=== PATIENT | female | born 1965 | race Caucasian/White ===

== ENCOUNTER 2018-11-11 20:02 | Emergency (ER) | payer BC, OTHER ==
--- OUTSIDE RECORDS SUMMARY | 2018-11-11 20:14 | XMS REPORT | Continuity of Care Document ---
:1965 Author Organization Interface Problems Problem Status Onset Classification Date Comments Source Date Reported F/U Active [address] 3 MONTH F/U Active [address] HOSPITAL FOLLOW Active [address] 1MO FOLLOW UP Active [address] WEAKNESS, Active [place] HYPONATREMIA, [address] RENAL FAILURE, A PULM EDEMA/HTN Active [place] [address] Diabetes Active Problem 11/06/2018 Medical Group,[facility] Diabetes Active Problem 11/06/2018 Medical mellitus Group,[facility] Diastolic CHF Active Problem 11/06/2018 Medical Group,[facility] ESRD on Active Problem 11/06/2018 Medical dialysis Group,[facility] 11/06/2018 Medical disease Group,[facility] HTN (<span Active Problem 11/06/2018 Medical ID="[id number] Group, 7">Confirmed</s [place]>) [facility] HTN (<span Active Problem 11/06/2018 Medical ID="[id number] Group, 7">Confirmed</s [place]>) [facility] Hypothyroid Active Problem 11/06/2018 Medical Group,[facility] Morbid obesity [facility] Pleural Active Problem 11/06/2018 Medical effusion Group,[facility] Vitamin D Active Problem 11/06/2018 Medical deficiency Group,[facility] Back pain Active Problem 11/06/2018 [facility] Medications Medication Details Route Status Patient Ordering Order Source Instructions Provider Date sevelamer carbonate See Active 800 MG Oral Tablet Instructions, 2018 Medical [Renvela] 3 tabs PO with Group meals and 2 tabs with snacks, # 390 tab, 5 Refill(s), called to pharmacy NIFEdipine 30 mg 30 mg=1 tab, Active [place] oral tablet, PO, Daily, # 2018 Medical extended release 90 tab, 0 Center Refill(s), Pharmacy: [facility]/pharmacy #[id number] Vitamin B12 0 Refill(s) Active [place] [facility] labetalol 200 mg 200 mg=1 tab, Active [place] oral tablet PO, TID, # 180 2018 Medical tab, 0 Center Refill(s) 168 HR Clonidine 1 patch, TOP, Active [place] 0.0125 MG/HR qWeek, # 12 2018 Medical Transdermal Patch patch, 0 Center Refill(s) sevelamer carbonate 800 mg=1 tab, Active [place] 800 MG Oral Tablet PO, TID-Meals, 2018 Medical [Renvela] # 90 tab, 0 Center Refill(s) Furosemide 40 MG 40 mg=1 tab, Active [place] Oral Tablet PO, BID, 0 [place] Refill(s) isosorbide dinitrate 30 mg=1 tab, Active [place] 30 mg oral tablet PO, TID, # 90 [place] tab, 0 Refill(s), other meclizine 12.5 mg 12.5 mg=1 tab, Active [place] oral tablet PO, Q8H, PRN [place] as needed for dizziness, 0 Refill(s) GI cocktail 30 mL, PO, Active [place] TID-Before [place] Meals, PRN Other -See Comment | painful swallowing, 0 Refill(s) Meclizine 12.5 mg, 1 Inactive [place] tab, Route: [place] PO, Drug form: TAB, Q8H, Dosing Weight 121.364, kg, PRN as needed for dizziness, Start date: 12/03/16 12:24:00 CDT, Duration: 30 day, Stop date: 01/02/17 12:23:00 CDTNotes: (Same as: Antivert) Protonix 40 mg, 1 tab, No Longer Sugar Route: PO, Active 2016 Drug form: ECTAB, Before Dinner, Start date: 12/02/16 16:30:00 CDT, Duration: 30 day, Stop date: 12/31/16 16:30:00 CDTNotes: Tablet should not be chewed or crushed. (Same as: Protonix) Sodium Chloride 250 mL, Rate: No Longer [place] 0.154 MEQ/ML Titrate, Active [place] Injectable Solution Dosing Weight 121.364, kg, Route: IV, Total Volume: 250, Start Date: 12/02/16 1:12:00 CDT, Duration: 30 day, Stop date: 01/01/17 1:11:00 CDT, Replace Every: 24 hr Sodium Chloride 2,000 mL, 400 No Longer Sugar 0.154 MEQ/ML ml/hr, Infuse Active [place] Injectable Solution Over: 5 hr, Route: IV, 2,000, Drug form: INJ, PRN, Dosing Weight 121.364 kg, Start date: 12/01/16 23:10:00 CDT, Duration: 24 hr, Stop date: 12/02/16 23:09:00 CDT, For Use by Dialysis nurse ONLY, PRN Dialysis Isosorbide Dinitrate 30 mg, 1 tab, No Longer Sugar Route: PO, Active 2016 [facility] Drug form: TAB, TID, Dosing Weight 121.364, kg, Start date: 12/01/16 17:00:00 CDT, Duration: 30 day, Stop date: 12/31/16 13:00:00 CDTNotes: Same as: Isordil Take on empty stomach/ full glass of water Furosemide 40 MG 40 mg, 1 tab, No Longer Sugar Oral Tablet Route: PO, Active 2016 [facility] Drug form: TAB, BID, Dosing Weight 121.364, kg, Start date: 12/01/16 17:00:00 CDT, Duration: 30 day, Stop date: 12/31/16 9:00:00 CDTNotes: (Same as: Lasix) May cause GI upset. Give with food or milk. Hydralazine 10 mg, 1 tab, Inactive Sugar Route: PO, 2016 [facility] Drug form: TAB, Q6H, Dosing Weight 121.364, kg, Start date: 12/01/16 6:00:00 CDT, Duration: 30 day, Stop date: 12/31/16 0:00:00 CDTNotes: (Same as: Apresoline) May interfere w/enteral feedings. Take With Food Hydralazine 10 mg, 0.5 mL, No Longer // [facility] Sugar Route: IVP, Active [place] Drug form: INJ, Q6H, Dosing Weight 121.364, kg, PRN Hypertension, Start date: 12/01/16 5:39:00 CDT, Duration: 30 day, Stop date: 12/31/16 5:38:00 CDTNotes: (Same as: Apresoline) Push over 5 minutes Sodium Chloride 2,000 mL, 400 No Longer 05/ MH Sugar 0.154 MEQ/ML ml/hr, Infuse Active [place] Injectable Solution Over: 5 hr, Route: IV, 2,000, Drug form: INJ, PRN, Dosing Weight 121.364 kg, Start date: 11/30/16 22:43:00 CDT, Duration: 24 hr, Stop date: 12/01/16 22:42:00 CDT, For Use by Dialysis nurse ONLY, PRN Dialysis Sodium Chloride 2,000 mL, 500 No Longer 12/01/ MH Sugar 0.154 MEQ/ML ml/hr, Infuse Active [place] Injectable Solution Over: 4 hr, Route: IV, 2,000, Drug form: INJ, PRN, Dosing Weight 121.364 kg, Start date: 11/30/16 22:35:00 CDT, Duration: 24 hr, Stop date: 12/01/16 22:34:00 CDT, For Use by Dialysis nurse ONLY, PRN Dialysis Sodium Chloride 500 mL, 500 Inactive 12/01/ MH Sugar 0.154 MEQ/ML ml/hr, Infuse [place] Injectable Solution Over: 1 hr, Route: IV, 500, Drug form: INJ, PRN, Dosing Weight 121.364 kg, Start date: 11/30/16 22:17:00 CDT, Duration: 1 doses or times, Stop date: Limited # of times, PRN Dialysis heparin 1,000 unit, 1 No Longer 05/23/ MH Sugar mL, Route: IV Active [place] Lock, Drug form: INJ, PRN, Dosing Weight 121.364, kg, PRN Dialysis, Start date: 11/30/16 22:17:00 CDT, Duration: 30 day, Stop date: 12/30/16 22:16:00 CDT Protonix 40 mg, Route: No Longer [place] IVP, Drug Active [place] form: INJ, Before Dinner, Dosing Weight 121.364, kg, Priority: NOW, Start date: 11/30/16 15:38:00 CDT, Duration: 30 day, Stop date: 12/29/16 16:30:00 CDTNotes: For IV push reconstitute with 10 ml 0.9% sodium chloride and push over 2 minutes. (Same as: Protonix) GI cocktail 30 ml, Route: No Longer Sugar PO, Drug Form: Active [place] SUSP, Dosing Weight 121.364, kg, TID-Before Meals, PRN Other -See Comment, Routine, Start date: 11/30/16 15:12:00 CDT, Duration: 30 day, Stop date: 12/30/16 15:11:00 CDT, painful swallowingNote s: G.I. Cocktail=antac id with simethicone 22.5 mL - lidocaine viscous 7.5 mL Labetalol 400 mg, 4 tab, Inactive Sugar Route: PO, 2016 [facility] Drug form: TAB, ONCE, Dosing Weight 121.364, kg, Priority: NOW, Start date: 11/30/16 11:51:00 CDT, Stop date: 11/30/16 11:51:00 CDTNotes: With food. (Same as:Trandate, Normodyne) Sodium Chloride 1000 2 gm, 2 tab, Active Sugar MG Oral Tablet Route: PO, 2016 [facility] Drug form: TAB, Daily, Dosing Weight 121.364, kg, Start date: 11/29/16 16:00:00 CDT, Stop date: 12/01/16 8:59:00 CDT Furosemide 40 MG 120 mg, 3 tab, No Longer Sugar Oral Tablet Route: PO, Active 2016 [facility] Drug form: TAB, TID, Dosing Weight 121.364, kg, Start date: 11/29/16 13:00:00 CDT, Duration: 30 day, Stop date: 12/29/16 9:00:00 CDTNotes: (Same as: Lasix) May cause GI upset. Give with food or milk. magnesium citrate 300 ml, Route: Inactive Sugar 58.2 MG/ML Oral PO, Drug Form: [place] Solution LIQ, Dosing Weight 121.364, kg, ONCE, NOW, Start date: 11/29/16 2:37:00 CDT, Stop date: 11/29/16 2:37:00 CDTNotes: (Same as: Citrate of Magnesia) Concentration: 1.745 gm / 30 mL Albuterol 0.833 3 mL, Route: No Longer Sugar MG/ML / Ipratropium INHALATION, Active [place] 0.167 MG/ML Drug Form: Inhalant Solution SOLN, Dosing Weight 121.364, kg, [id number], Start date: 11/28/16 19:00:00 CDT, Duration: 30 day, Stop date: 12/28/16 15:00:00 CDTNotes: (Same as: Duoneb) Sodium Chloride 3% 3 mL, Route: No Longer Sugar inhalation solution NEB, Drug Active [place] Form: MISC, Dosing Weight 121.364, kg, QH1Q-DP, Start date: 11/28/16 19:00:00 CDT, Duration: 30 day, Stop date: 12/28/16 15:00:00 CDT Acetylcysteine 200 600 mg, 3 mL, No Longer Sugar MG/ML Inhalant Route: Active [place] Solution INHALATION, Drug Form: SOLN, Dosing Weight 121.364, kg, Q4H-WA, Start date: 11/28/16 18:00:00 CDT, Duration: 30 day, Stop date: 12/28/16 14:00:00 CDT Budesonide 0.25 0.5 mg, 2 mL, No Longer Sugar MG/ML Inhalant Route: NEB, Active [place] Solution [Pulmicort] Drug form: SUSP, BID, Dosing Weight 121.364, kg, Start date: 11/28/16 17:00:00 CDT, Duration: 30 day, Stop date: 12/28/16 9:00:00 CDTNotes: (Same As: Pulmicort) Furosemide 100 mg, 10 mL, No Longer Sugar Route: IVP, Active [place] Drug form: INJ, TID, Dosing Weight 121.364, kg, Start date: 11/28/16 15:00:00 CDT, Duration: 1 day, Stop date: 11/29/16 10:00:00 CDTNotes: (Same as: Lasix) MEDICATION WASTE Product Size: 100 mg Product Wasted: ___ mg albumin human 25% 12.5 gm, 50 No Longer Sugar intravenous solution mL, Route: Active 2016 [facility] IVPB, Drug form: INJ, TID, Dosing Weight 121.364, kg, Start date: 11/28/16 14:30:00 CDT, Duration: 1 day, Stop date: 11/29/16 9:30:00 CDTNotes: LOT#: Mfg: WASTE: F/P - Red; E -Red (Same as: Albuminar) "blood product derivative" Tessalon Perles 200 mg, 2 cap, No Longer Sugar Route: PO, Active 2016 [facility] Drug form: CAP, TID, Dosing Weight 121.364, kg, Priority: NOW, Start date: 11/28/16 9:18:00 CDT, Duration: 30 day, Stop date: 12/28/16 6:00:00 CDTNotes: (Same As: Tessalon Perles) "Do Not Crush" Prednisone 40 mg, 2 tab, No Longer Sugar Route: PO, Active 2016 [facility] Drug form: TAB, Daily, Dosing Weight 121.364, kg, Start date: 11/28/16 9:00:00 CDT, Duration: 30 day, Stop date: 12/27/16 9:00:00 CDTNotes: Take with food. Protonix 40 mg, 1 tab, Inactive Sugar Route: PO, 2016 [facility] Drug form: ECTAB, Daily, Dosing Weight 121.364, kg, Start date: 11/28/16 9:00:00 CDT, Duration: 30 day, Stop date: 12/27/16 9:00:00 CDTNotes: Tablet should not be chewed or crushed. (Same as: Protonix) heparin sodium, 5,000 unit, 1 No Longer Sugar porcine 2500 UNT/ML mL, Route: Active 2016 [facility] Injectable Solution SUB-Q, Drug form: INJ, Q8H, Dosing Weight 121.364, kg, Start date: 11/28/16 8:00:00 CDT, Duration: 30 day, Stop date: 12/28/16 0:00:00 CDTNotes: porcine heparin Lasix 20 mg, 2 mL, Inactive Sugar Route: IV, 2016 [facility] Drug form: INJ, ONCE, Dosing Weight 121.364, kg, Start date: 11/28/16 7:07:00 CDT, Stop date: 11/28/16 7:07:00 CDTNotes: (Same as: Lasix) Sodium Chloride 100 mL, Rate: Inactive Sugar 0.154 MEQ/ML 10 ml/hr, 2016 [facility] Injectable Solution Infuse over: 10 hr, Route: IVPB, Dosing Weight 121.364 kg, Total Volume: 100, Infuse at 8 mg / hr for 72 hours for GI bleeding, Start date: 11/28/16 5:55:00 CDT, Duration: 72 hr, Stop date: 12/01/16 5:54:00 CDTNotes: do not load in pyxis Lasix 120 mg, 3 tab, No Longer Sugar Route: PO, Active 2016 [facility] Drug form: TAB, TID, Start date: 11/27/16 21:02:00 CDT, Duration: 30 day, Stop date: 12/27/16 17:00:00 CDTNotes: (Same as: Lasix) May cause GI upset. Give with food or milk. Furosemide 40 MG 120 mg, 3 tab, Inactive Sugar Oral Tablet [Lasix] Route: PO, 2016 [facility] Drug form: TAB, TID, Dosing Weight 121.364, kg, Start date: 11/27/16 17:00:00 CDT, Duration: 30 day, Stop date: 12/27/16 13:00:00 CDTNotes: (Same as: Lasix) May cause GI upset. Give with food or milk. tramadol 50 mg, 1 tab, No Longer Sugar hydrochloride 50 MG Route: PO, Active 2016 [facility] Oral Tablet Drug form: TAB, Q6H, Dosing Weight 121.364, kg, PRN Pain Score 4-6, Start date: 11/27/16 11:23:00 CDT, Duration: 30 day, Stop date: 12/27/16 11:22:00 CDTNotes: Not to exceed 400mg/day. (Same As: Ultram) zolpidem 5 mg, 1 tab, No Longer Sugar Route: PO, Active 2016 [facility] Drug form: TAB, Bedtime, Dosing Weight 121.364, kg, PRN Sleep, Start date: 11/27/16 11:23:00 CDT, Duration: 30 day, Stop date: 12/27/16 11:22:00 CDTNotes: (Same As: Emmanuelien) Nystatin 100 UNT/MG 1 appl, Route: No Longer Sugar Topical Powder TOP, Daily, Active 2016 [facility] Drug form: PWDR, PRN Rash, Start date: 11/27/16 11:22:00 CDT, Duration: 30 day, Stop date: 12/27/16 11:21:00 CDTNotes: (Same as:Mycostatin, Nilstat) For external use only. Metolazone 5 MG Oral 5 mg, 1 tab, No Longer Sugar Tablet Route: PO, Active 2016 [facility] Drug form: TAB, Daily, Dosing Weight 121.364, kg, Start date: 11/27/16 9:00:00 CDT, Duration: 30 day, Stop date: 12/26/16 9:00:00 CDTNotes: (Same as: Zaroxolyn) Albuterol 0.833 3 ml, Active Sugar MG/ML / Ipratropium INHALATION, [place] 0.167 MG/ML PRN, PRN Inhalant Solution Wheezing, # [DuoNeb] 360 ea, 0 Refill(s) Acetaminophen 325 MG 1 tab, PO, Active Sugar / Hydrocodone Q6H, PRN for [place] Bitartrate 10 MG pain, # 24 Oral Tablet [[place] tab, 0 10/325] Refill(s) Nystatin 100 UNT/MG 1 appl, TOP, Active Sugar Topical Powder Daily, PRN [place] PRN, # 30 gm, 0 Refill(s) Acetylcysteine 200 400 mg=2 ML, Active Sugar MG/ML Inhalant INHALATION, [place] Solution Q6H, 0 Refill(s) acetaminophen 325 mg 650 mg=2 tab, Active [place] oral tablet PO, Q4H, PRN [place] for pain, # 24 tab, 0 Refill(s) pantoprazole 40 MG 40 mg=1 tab, Active Sugar Enteric Coated PO, Daily, # 2017 [place] Tablet [Protonix] 30 tab, 3 Refill(s) Aluminum Hydroxide UNKNOWN, PO, Active Sugar 40 MG/ML / Magnesium QID, PRN [place] Hydroxide 40 MG/ML / Heartburn, 0 Simethicone 4 MG/ML Refill(s) Oral Suspension [Mylanta] Metolazone 10 MG 10 mg=1 tab, Active Sugar Oral Tablet PO, Daily, # [place] 30 tab, 0 Refill(s) Insulin, Aspart, SLIDING SCALE, Active Sugar Human SUB-Q, 2017 [place] TID-Before Meals, 0 Refill(s) Insulin, Aspart, 2 unit, 0.02 No Longer Sugar Human mL, Route: Active [place] SUB-Q, Drug form: SOLN, Bedtime, Dosing Weight 121.364, kg, PRN Blood Glucose Results, Start date: 11/26/16 22:38:00 CDT, Duration: 30 day, Stop date: 12/26/16 22:37:00 CDTNotes: Roll in palms of hands gently; Do not shake vigorously. (Same as: NovoLOG) "single patient use only" WASTE: F/P - Black; E - [employer]EG[employer]STEM[employer] Trash Bin Stable for 28 days at room temperature. Expires in days from Date Dextrose 50% Syringe 12.5 gm, 25 No Longer Sugar mL, Route: Active [place] IVP, Drug Form: INJ, Dosing Weight 121.364, kg, PRN, PRN Blood Glucose Results, Start date: 11/26/16 22:38:00 CDT, Stop date: 12/26/16 22:37:00 CDT Glucagon 1 mg, Route: No Longer Sugar IM, Drug form: Active 2016 [place] PDR/INJ, PRN, Dosing Weight 121.364, kg, PRN Blood Glucose Results, Start date: 11/26/16 22:38:00 CDT, Duration: 30 day, Stop date: 12/26/16 22:37:00 CDT Albuterol 0.833 3 mL, Route: No Longer Sugar MG/ML / Ipratropium NEB, Drug Active 2016 [place] 0.167 MG/ML Form: SOLN, Inhalant Solution Dosing Weight [DuoNeb] 121.364, kg, RQ4H, PRN Shortness of breath, Start date: 11/26/16 21:10:00 CDT, Stop date: 12/26/16 21:09:00 CDTNotes: (Same as: Duoneb) allopurinol 100 mg 200 mg=2 tab, No Longer Sugar oral tablet PO, Daily, # Active [place] 90 tab, 1 Refill(s) Atenolol 25 MG Oral 25 mg=1 tab, No Longer Sugar Tablet PO, Daily, # Active [place] 90 tab, 0 Refill(s) bumetanide 2 mg oral 2 mg=1 tab, No Longer Sugar tablet PO, Daily, # Active [place] 30 tab, 0 Refill(s) Aldactone 25 mg, 1 tab, No Longer Sugar Route: PO, Active [place] Drug form: TAB, BID, Dosing Weight 121.364, kg, Start date: 11/26/16 17:00:00 CDT, Duration: 30 day, Stop date: 12/26/16 9:00:00 CDTNotes: (Same As: Aldactone) Levofloxacin 750 MG 750 mg=1 tab, No Longer Sugar Oral Tablet PO, Daily, X 5 Active [place] [Levaquin] day, # 5 tab, 0 Refill(s), given to patient Bumex 2 mg, 2 tab, No Longer Sugar Route: PO, Active [place] Drug form: TAB, TID, Dosing Weight 121.364, kg, Start date: 11/26/16 13:00:00 CDT, Duration: 30 day, Stop date: 12/26/16 9:00:00 CDTNotes: (Same As: Bumex) Docusate 100 mg, 1 cap, No Longer Sugar Route: PO, Active 2016 [facility] Drug form: CAP, BID, Dosing Weight 135, kg, Start date: 11/26/16 9:00:00 CDT, Duration: 30 day, Stop date: 12/25/16 17:00:00 CDTNotes: (Same as: Colace) (Do Not Crush) Trazodone 50 mg, 1 tab, Inactive Sugar Hydrochloride 50 MG Route: PO, 2016 [facility] Oral Tablet Drug form: TAB, ONCE, Dosing Weight 121.364, kg, Start date: 11/26/16 6:38:00 CDT, Stop date: 11/26/16 6:38:00 CDTNotes: (Same As: Desyrel) Thyroxine 200 microgram, No Longer Sugar 2 tab, Route: Active 2016 [facility] PO, Drug form: TAB, Q630AM, Dosing Weight 135, kg, Start date: 11/26/16 6:30:00 CDT, Duration: 30 day, Stop date: 12/25/16 6:30:00 CDTNotes: Take 1 hour before or 2 hours after meal; Enteral feeds may interefere with the absorption of this medication. (Same as:Levothroid, Synthroid) Ondansetron 4 mg, 2 mL, No Longer Sugar Route: IVP, Active 2016 [facility] Drug form: INJ, Q6H, Dosing Weight 135, kg, PRN Nausea & Vomiting, Start date: 11/26/16 5:39:00 CDT, Duration: 30 day, Stop date: 12/26/16 5:38:00 CDTNotes: (Same as: Zofran) MEDICATION WASTE Product Size: 4 mg Product Wasted: ___ mg Morphine 2 mg, 1 mL, No Longer Sugar Route: IVP, Active 2016 [facility] Drug form: INJ, Q4H, Dosing Weight 135, kg, PRN Pain Score 7-10, Start date: 11/26/16 5:39:00 CDT, Duration: 30 day, Stop date: 12/26/16 5:38:00 CDTNotes: (Same as:MORPhine Sulfate) Acetaminophen 650 mg, 2 tab, No Longer Sugar Route: PO, Active 2016 [facility] Drug form: TAB, Q4H, Dosing Weight 135, kg, PRN Pain 1-3/Temp > 100.4 F, Start date: 11/26/16 5:39:00 CDT, Duration: 30 day, Stop date: 12/26/16 5:38:00 CDTNotes: Do not exceed 4 gm/day. (Same as: Tylenol) Acetaminophen 325 MG 1 tab, Route: No Longer Sugar / Hydrocodone PO, Drug Form: Active 2016 [facility] Bitartrate 5 MG Oral TAB, Dosing Tablet Weight 135, kg, Q4H, PRN Pain Score 4-6, Start date: 11/26/16 5:39:00 CDT, Duration: 30 day, Stop date: 12/26/16 5:38:00 CDTNotes: (Same as: [place] 325/5) Do not exceed 4gm/day of acetaminophen. Hydralazine 25 mg, 1 tab, No Longer Sugar Hydrochloride 25 MG Route: PO, Active 2016 [facility] Oral Tablet Drug form: TAB, TID, Dosing Weight 135, kg, Priority: NOW, Start date: 11/26/16 4:10:00 CDT, Duration: 30 day, Stop date: 12/25/16 17:00:00 CDTNotes: (Same as: Apresoline) May interfere w/enteral feedings Take With Food. Trazodone 50 mg, 1 tab, No Longer Sugar Hydrochloride 50 MG Route: PO, Active 2016 [facility] Oral Tablet Drug form: TAB, Bedtime, Dosing Weight 135, kg, PRN Insomnia, Start date: 11/26/16 4:09:00 CDT, Duration: 30 day, Stop date: 12/26/16 4:08:00 CDTNotes: (Same As: Desyrel) Labetalol 400 mg, 4 tab, No Longer Sugar Route: PO, Active 2016 [facility] Drug form: TAB, Q12H, Dosing Weight 135, kg, Priority: NOW, Start date: 11/26/16 4:09:00 CDT, Duration: 30 day, Stop date: 12/25/16 21:00:00 CDTNotes: With food. (Same as:Trandate, Normodyne) Bisacodyl 10 mg, 1 supp, No Longer Sugar Route: CT, Active 2016 [facility] Drug form: SUPP, Daily, Dosing Weight 135, kg, PRN as needed for constipation, Start date: 11/26/16 4:07:00 CDT, Duration: 30 day, Stop date: 12/26/16 4:06:00 CDTNotes: (Same As: Dulcolax, Bisco-Lax) Lasix 40 mg, 4 mL, No Longer Sugar Route: IVP, Active 2016 [facility] Drug form: INJ, Q12H, Dosing Weight 135, kg, Priority: STAT, Start date: 11/26/16 4:06:00 CDT, Duration: 30 day, Stop date: 12/25/16 21:00:00 CDTNotes: (Same as: Lasix) MEDICATION WASTE Product Size: 40 mg Product Wasted: ___ mg Albuterol 0.83 MG/ML 2.49 mg, 3 mL, Inactive Sugar Inhalant Solution Route: NEB2016 [facility] Drug form: SOLN, ONCE, Dosing Weight 135, kg, Priority: STAT, Start date: 11/26/16 3:20:00 CDT, Stop date: 11/26/16 3:20:00 CDTNotes: SEE RT DOCUMENTATION (Same as: Proventil) linezolid 600 mg 600 mg=1 tab, No Longer Sugar oral tablet PO, Q12H, X 5 Active 2016, # 10 tab, 0 Refill(s), given to patient zolpidem 5 mg oral 5 mg=1 tab, On Hold Sugar tablet PO, Bedtime, [place] PRN as needed for sleep, 0 Refill(s) Trazodone 50 mg=1 tab, On Hold Sugar Hydrochloride 50 MG PO, Bedtime, 2016 [place] Oral Tablet PRN Insomnia, 0 Refill(s) tramadol 50 mg=1 tab, On Hold Sugar hydrochloride 50 MG PO, Q6H, PRN 2017 [place] Oral Tablet Pain Score 4-6, 0 Refill(s) spironolactone 25 mg 25 mg=1 tab, On Hold Sugar oral tablet PO, BID, 0 [place] Refill(s) Metolazone 2.5 MG 5 mg=2 tab, On Hold Sugar Oral Tablet PO, Daily, 0 [place] Refill(s) predniSONE 20 mg 40 mg=2 tab, On Hold Sugar oral tablet PO, Daily, 0 [place] Refill(s) bumetanide 1 mg oral 2 mg=2 tab, No Longer Sugar tablet PO, TID, # 84 Active 2016 [facility] tab, 0 Refill(s), Pharmacy: [facility]/pharmacy #[id number] labetalol 100 mg 400 mg=4 tab, On Hold Sugar oral tablet PO, Q12H, 0 [place] Refill(s) levothyroxine 100 200 On Hold Sugar mcg (0.1 mg) oral microgram=2 [place] tablet tab, PO, Q630AM, 0 Refill(s) Hydralazine PO, Q6H, 0 No Longer Sugar Hydrochloride 50 MG Refill(s) Active 2016 [facility] Oral Tablet Docusate Sodium 50 1 tab, PO, No Longer Sugar MG / sennosides, MCFP BID, 0 Active [place] 8.6 MG Oral Tablet Refill(s) Clonidine 0.2 mg=1 tab, No Longer Sugar Hydrochloride 0.2 MG PO, TID, PRN Active 2016 [facility] Oral Tablet Hypertension, 0 Refill(s) Budesonide 0.25 0.5 mg=2 mL, On Hold Sugar MG/ML Inhalant NEB, RQ12H, 0 2016 [facility] Solution [Pulmicort] Refill(s) bisacodyl 10 mg 10 mg=1 supp, No Longer Sugar rectal suppository CT, Daily, PRN Active 2016 [facility] Other -See Comment, 0 Refill(s) Ambien 5 mg, 1 tab, No Longer Sugar Route: PO, Active 2016 [facility] Drug form: TAB, Bedtime, Dosing Weight 149.003, kg, PRN as needed for sleep, Start date: 11/24/16 19:25:00 CDT, Duration: 30 day, Stop date: 12/24/16 19:24:00 CDTNotes: (Same As: Ambien) Bumex 2 mg, 2 tab, No Longer Sugar Route: PO, 2016 [facility] Drug form: TAB, TID, Dosing Weight 149.003, kg, Start date: 11/24/16 13:00:00 CDT, Duration: 30 day, Stop date: 12/24/16 9:00:00 CDTNotes: (Same As: Bumex) Morphine 2 mg, 1 mL, No Longer Sugar Route: IV, 2016 [facility] Drug form: INJ, Q4H, Dosing Weight 149.003, kg, PRN Pain Score 7-10, Start date: 11/24/16 1:25:00 CDT, Duration: 30 day, Stop date: 12/24/16 1:24:00 CDTNotes: (Same as:MORPhine Sulfate) linezolid 600 mg, 300 No Longer Sugar mL, Route: Active 2016 [facility] IVPB, Drug form: SOLN, [id number], Dosing Weight 149.003, kg, Start date: 11/23/16 21:00:00 CDT, Duration: 30 day, Stop date: 12/23/16 9:00:00 CDTNotes: (Same as: Zyvox) Phenergan 25 mg, 1 mL, No Longer Sugar Route: IM, 2016 [facility] Drug form: INJ, Q6H, Dosing Weight 149.003, kg, PRN as needed for nausea/vomitin g, Start date: 11/22/16 10:47:00 CDT, Duration: 30 day, Stop date: 12/22/16 10:46:00 CDTNotes: Do not give IV push. (Same as: Phenergan) ceftaroline + sodium 300 mg, Route: No Longer Sugar chloride 0.9% INJ IVPB, Q12H, Active [place] 100 mL Dosing Weight 149.003, kg, Start date: 11/21/16 21:00:00 CDT, Duration: 30 day, Stop date: 12/21/16 9:00:00 CDT, For CrCL 15 - 30 ml/minNotes: Reserved for use by ID Physicians in refractory MRSA skin and skin structure infections or intolerance to vancomycin, daptomycin or linezolid. Non-Formulary Drug MEDICATION WASTE Product Size: 600 mg Product Wasted: 0 mg (prepare 2 doses from 1 x 600 mg vial) Labetalol 400 mg, 4 tab, No Longer Sugar Route: PO, Active 2016 [facility] Drug form: TAB, Q12H, Dosing Weight 149.003, kg, Start date: 11/21/16 21:00:00 CDT, Duration: 30 day, Stop date: 12/21/16 9:00:00 CDTNotes: With food. 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), Start date: 11/21/16 19:00:00 CDT, Duration: 30 day, Stop date: 12/21/16 7:00:00 CDT Trazodone 50 mg, 1 tab, No Longer Sugar Hydrochloride 50 MG Route: PO, Active 2016 [facility] Oral Tablet Drug form: TAB, Bedtime, Dosing Weight 149.003, kg, PRN Insomnia, Start date: 11/21/16 18:51:00 CDT, Duration: 30 day, Stop date: 12/21/16 18:50:00 CDTNotes: (Same As: Lexie) Labetalol 200 mg, 2 tab, No Longer Sugar Route: PO, Active 2016 [facility] Drug form: TAB, Q12H, Dosing Weight 149.003, kg, Priority: NOW, Start date: 11/21/16 14:12:00 CDT, Duration: 30 day, Stop date: 12/21/16 9:00:00 CDTNotes: With food. (Same as:Trandate, Normodyne) Clonidine 0.2 mg, 1 tab, No Longer Sugar Hydrochloride 0.2 MG Route: PO, Active 2016 [facility] Oral Tablet Drug form: TAB, TID, Dosing Weight 149.003, kg, PRN Hypertension, Start date: 11/21/16 11:12:00 CDT, Duration: 30 day, Stop date: 12/21/16 11:11:00 CDTNotes: (Same As: Catapres) Levofloxacin 750 mg, 150 No Longer Sugar mL, Route: Active 2016 [facility] IVPB, Drug form: SOLN, [id number], Dosing Weight 149.003, kg, Start date: 11/21/16 11:00:00 CDT, Stop date: 12/20/16 11:00:00 CDTNotes: (Same as:Levaquin) Clonidine 0.2 mg, Route: Inactive Sugar Hydrochloride 0.2 MG PO, Q6H, 2016 [facility] Oral Tablet Dosing Weight 149.003, kg, PRN Hypertension, Priority: NOW, Start date: 11/21/16 10:56:00 CDT, Duration: 30 day, Stop date: 12/21/16 10:55:00 CDT Lactulose 667 MG/ML 20 gm, 30 ml, Inactive Sugar Oral Solution Route: PO, 2016 [facility] Drug form: SYRP, Q6H, Dosing Weight 149.003, kg, PRN Constipation, Priority: NOW, Start date: 11/21/16 9:47:00 CDT, Duration: 30 day, Stop date: 12/21/16 9:46:00 CDTNotes: (Same as:Chronulac) Atenolol 25 MG Oral 25 mg, 1 tab, Inactive Sugar Tablet Route: PO, 2016 [facility] Drug form: TAB, Daily, Dosing Weight 149.003, kg, Start date: 11/21/16 9:00:00 CDT, Duration: 30 day, Stop date: 12/20/16 9:00:00 CDTNotes: (Same As:Tenormin) Maalox Advanced 30 mL, Route: No Longer Sugar Regular Strength PO, Drug Form: Active 2016 [facility] SUSP SUSP, Dosing Weight 149.003, kg, QID, PRN Heartburn, Start date: 11/20/16 17:31:00 CDT, Duration: 30 day, Stop date: 12/20/16 17:30:00 CDTNotes: (aluminum hydroxide-magn esium hyd-simethicon e [phone]/5 ml 30 ml ud SPIKE) Hydralazine 50 mg, 2 tab, No Longer Sugar Hydrochloride 50 MG Route: PO, Active [facility] Oral Tablet Drug form: TAB, Q6H, Dosing Weight 149.003, kg, Start date: 11/20/16 12:00:00 CDT, Duration: 30 day, Stop date: 12/20/16 6:00:00 CDTNotes: (Same as: Apresoline) May interfere w/enteral feedings Take With Food. Aldactone 25 mg, 1 tab, No Longer Sugar Route: PO, Active [facility] Drug form: TAB, BID, Dosing Weight 153.273, kg, Start date: 11/19/16 17:00:00 CDT, Duration: 30 day, Stop date: 12/19/16 5:00:00 CDTNotes: (Same As: Aldactone) Acetylcysteine 200 400 mg, 2 mL, No Longer Sugar MG/ML Inhalant Route: NEB, Active [facility] Solution Drug Form: SOLN, Dosing Weight 149.003, kg, RQ6H, Start date: 11/19/16 12:00:00 CDT, Duration: 30 day, Stop date: 12/19/16 8:00:00 CDT Sodium Chloride 2,000 mL, 2000 No Longer Sugar 0.154 MEQ/ML ml/hr, Infuse Active [facility] Injectable Solution Over: 1 hr, Route: IV, 2,000, Drug form: INJ, PRN, Dosing Weight 149.003 kg, Start date: 11/19/16 9:27:00 CDT, Duration: 24 hr, Stop date: 11/20/16 9:26:00 CDT, For Use by Dialysis nurse ONLY, PRN Dialysis tramadol 50 mg, 1 tab, No Longer Sugar hydrochloride 50 MG Route: PO, Active 2016 [facility] Oral Tablet Drug form: TAB, Q6H, Dosing Weight 149.003, kg, PRN Pain Score 4-6, Start date: 11/19/16 9:11:00 CDT, Duration: 30 day, Stop date: 12/19/16 9:10:00 CDTNotes: Not to exceed 400mg/day. (Same As: Ultram) Acetaminophen 325 MG 1 tab, Route: No Longer Sugar / Hydrocodone PO, Drug Form: Active 2016 [facility] Bitartrate 5 MG Oral TAB, Dosing Tablet [[place] 5/325] Weight 149.003, kg, Q6H, PRN Pain Score 7-10, Start date: 11/19/16 9:10:00 CDT, Duration: 30 day, Stop date: 12/19/16 9:09:00 CDTNotes: (Same as: [place] 325/5) Do not exceed 4gm/day of acetaminophen. Prednisone 40 mg, 2 tab, No Longer Sugar Route: PO, Active 2016 [facility] Drug form: TAB, Daily, Dosing Weight 149.003, kg, Start date: 11/19/16 9:00:00 CDT, Duration: 30 day, Stop date: 12/18/16 9:00:00 CDTNotes: Take with food. heparin 1,000 unit, 1 No Longer Sugar mL, Route: IV Active 2016 [facility] Lock, Drug form: INJ, PRN, Dosing Weight 149.003, kg, PRN Dialysis, Start date: 11/18/16 18:17:00 CDT, Duration: 1 day, Stop date: 11/19/16 18:16:00 CDT Furosemide 20 mg, 2 mL, No Longer Sugar Route: IVP, Active 2016 [facility] Drug form: INJ, ONCALL, Dosing Weight 149.003, kg, Administer after first unit of Blood., Priority: Routine, Start date: 11/18/16 10:00:00 CDT, Duration: 30 day, Stop date: 12/18/16 9:59:00 CDTNotes: (Same as: Lasix) sodium chloride 0.9% 250 mL, Rate: No Longer Sugar INJ 250 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 to Marisela-Colace. Protonix 40 mg, 1 tab, No Longer Sugar Route: PO, Active 2016 [facility] Drug form: ECTAB, Daily, Start date: 11/18/16 9:00:00 CDT, Duration: 30 day, Stop date: 12/17/16 9:00:00 CDTNotes: Tablet should not be chewed or crushed. (Same as: Protonix) Calcium Carbonate 500 mg, 1 tab, Inactive Sugar Route: CHEW, 2016 [facility] Drug form: CHEWTAB, ONCE, Dosing Weight 149.003, kg, Start date: 11/17/16 21:46:00 CDT, Stop date: 11/17/16 21:46:00 CDTNotes: (Same As: Tums) Calcium Carbonate 500 na=496 mg elemental calcium Dose= mg calcium carbonate ( mg elemental calcium) methylPREDNISolone 40 mg, 1 mL, No Longer Sugar SODium SUCCinate Route: IVP, Active 2016 [facility] Drug form: INJ, Daily, Dosing Weight 153.273, kg, Start date: 11/17/16 9:00:00 CDT, Duration: 30 day, Stop date: 12/16/16 9:00:00 CDTNotes: (Same as:Solu-MEDROL , A-Methapred) Metolazone 2.5 MG 5 mg, 2 tab, No Longer Sugar Oral Tablet Route: PO, Active 2016 [facility] Drug form: TAB, Daily, Dosing Weight 153.273, kg, Start date: 11/17/16 9:00:00 CDT, Duration: 30 day, Stop date: 12/16/16 9:00:00 CDTNotes: (Same as: Zaroxolyn) heparin 1,000 unit, 1 No Longer Sugar mL, Route: IV Active 2016 [facility] Lock, Drug form: INJ, PRN, Dosing Weight 149.003, kg, PRN Dialysis, Start date: 11/16/16 13:35:00 CDT, Duration: 1 day, Stop date: 11/17/16 13:34:00 CDT Sodium Chloride 2,000 mL, No Longer Sugar 0.154 MEQ/ML Route: IV, 2016 [facility] Injectable Solution Drug form: INJ, PRN, Dosing Weight 149.003 kg, Start date: 11/16/16 13:35:00 CDT, Duration: 24 hr, Stop date: 11/17/16 13:34:00 CDT, For Use by Dialysis nurse ONLY, PRN Dialysis Aldactone 25 mg, 1 tab, No Longer Sugar Route: PO, Active 2016 [facility] Drug form: TAB, Daily, Dosing Weight 153.273, kg, Start date: 11/16/16 9:00:00 CDT, Duration: 30 day, Stop date: 12/15/16 9:00:00 CDTNotes: (Same As: Aldactone) sodium chloride 0.9% 1,000 mL, No Longer Sugar 1000 ml INJ 1,000 mL Rate: FOR Active 2016 [facility] [employer], Route: IV, Dosing Weight 153.273 kg, Total Volume: 1,000, Start date: 11/15/16 23:20:00 CDT, Duration: 2 doses or times, Stop date: 11/17/16 23:19:00 CDT Losartan 50 mg, 1 tab, No Longer Sugar Route: PO, Active 2016 [facility] Drug form: TAB, BID, Dosing Weight 153.273, kg, Start date: 11/15/16 17:00:00 CDT, Duration: 30 day, Stop date: 12/15/16 9:00:00 CDTNotes: (Same as: Cozaar) Metolazone 2.5 MG 2.5 mg, 1 tab, Inactive Sugar Oral Tablet Route: PO, 2016 [facility] Drug form: TAB, ONCE, Dosing Weight 149.003, kg, Start date: 11/15/16 13:09:00 CDT, Stop date: 11/15/16 13:09:00 CDTNotes: (Same as: Zaroxolyn) difluprednate 0.5 1 drp, BOTH No Longer Sugar MG/ML Ophthalmic EYES, Daily, Active 2016 [facility] Suspension [Durezol] After 14 days, taper dose as directed by physician., # 5 mL, 0 Refill(s) Metolazone 2.5 MG 2.5 mg, 1 tab, No Longer Sugar Oral Tablet Route: PO, Active 2016 [facility] Drug form: TAB, Daily, Dosing Weight 153.273, kg, Start date: 11/15/16 9:00:00 CDT, Duration: 30 day, Stop date: 12/14/16 9:00:00 CDTNotes: (Same as: Zaroxolyn) Calcium Gluconate 2,000 mg, 20 Inactive Sugar mL, Route: 2016 IVPB, ONCE, Dosing Weight 153.273, kg, Start date: 11/15/16 3:53:00 CDT, Stop date: 11/15/16 3:53:00 CDTNotes: WASTE: F/P - Sink; E - Municipal Trash Bin heparin 3,000 unit, 3 No Longer Sugar mL, Route: Active 2016 [facility] DIALYSIS, Drug form: INJ, ONCALL, Start date: 11/14/16 23:30:00 CDT, Duration: 1 doses or times Sodium Chloride 0.9% IV, 250 ml/hr, No Longer Sugar IV PRN, PRN Other Active 2016 [facility] -See Comment, Start date: 11/14/16 23:20:00 CDT, Duration: 3, 250 ml Hydralazine 25 mg, 1 tab, No Longer Sugar Hydrochloride 25 MG Route: PO, Active 2016 [facility] Oral Tablet Drug form: TAB, Q6H, Dosing Weight 153.273, kg, Start date: 11/14/16 18:00:00 CDT, Duration: 30 day, Stop date: 12/14/16 12:00:00 CDTNotes: (Same as: Apresoline) May interfere w/enteral feedings Take With Food. Losartan 25 mg, 1 tab, No Longer Sugar Route: PO, Active 2016 [facility] Drug form: TAB, BID, Dosing Weight 153.273, kg, Start date: 11/14/16 17:00:00 CDT, Duration: 30 day, Stop date: 12/14/16 9:00:00 CDTNotes: (Same as: Cozaar) Sodium Chloride 500 mL, 500 No Longer Sugar 0.154 MEQ/ML ml/hr, Infuse Active 2016 [facility] Injectable Solution Over: 1 hr, Route: IV, 500, Drug form: INJ, PRN, Dosing Weight 153.273 kg, Start date: 11/14/16 11:25:00 CDT, Duration: 1 doses or times, Stop date: Limited # of times, PRN Dialysis albumin human 25% 12.5 gm, 50 No Longer Sugar intravenous solution mL, Route: Active 2016 [facility] IVPB, Drug form: INJ, ONCALL, Dosing Weight 153.273, kg, PRN Dialysis, Start date: 11/14/16 11:25:00 CDT, Duration: 1 doses or times, Stop date: Limited # of times, (Give up to two doses prn each dialysis)Notes : LOT#: Mfg: WASTE: F/P - Red; E -Red (Same as: Albuminar) "blood product derivative" Hydralazine 10 mg, 0.5 mL, No Longer Sugar Route: IVP, Active 2016 [facility] Drug form: INJ, Q4H, Dosing Weight 153.273, kg, PRN Elevated BP, Start date: 11/14/16 6:23:00 CDT, Duration: 30 day, Stop date: 12/14/16 6:22:00 CDT, Systolic BP >160Notes: (Same as: Apresoline) Push over 5 minutes Mannitol 12.5 gm, 50 No Longer Sugar mL, Route: Active 2016 [facility] IVPB, Drug form: INJ, PRN, Dosing Weight 153.273, kg, PRN Dialysis, Start date: 11/13/16 17:55:00 CDT, Duration: 2 doses or times, Stop date: Limited # of timesNotes: (Same as: Osmitrol) Infuse through 5 micron or smaller filter WASTE: F/P - Sink; E - Municipal Trash Bin Sodium Chloride 2,000 mL, 2000 No Longer Sugar 0.154 MEQ/ML ml/hr, Infuse Active 2016 [facility] Injectable Solution Over: 1 hr, Route: IV, 2,000, Drug form: INJ, PRN, Dosing Weight 153.273 kg, Start date: 11/13/16 17:51:00 CDT, Duration: 24 hr, Stop date: 11/14/16 17:50:00 CDT, For Use by Dialysis nurse ONLY, PRN Dialysis heparin 1,000 unit, 1 No Longer 11/13/ Sugar mL, Route: IV Active [facility], Drug form: INJ, PRN, Dosing Weight 153.273, kg, PRN Dialysis, Start date: 11/13/16 17:51:00 CDT, Duration: 30 day, Stop date: 12/13/16 17:50:00 CDT heparin 5,000 unit, 1 No Longer 11/13/ Sugar mL, Route: Active 2016 [facility] SUB-Q, Drug form: INJ, Q8H, Dosing Weight 153.273, kg, Start date: 11/13/16 16:00:00 CDT, Duration: 30 day, Stop date: 12/13/16 5:30:00 CDTNotes: porcine heparin methylPREDNISolone 40 mg, 1 mL, No Longer Sugar SODium SUCCinate Route: IVP, Active [facility] Drug form: INJ, Q8H, Dosing Weight 153.273, kg, Start date: 11/13/16 12:00:00 CDT, Duration: 30 day, Stop date: 12/13/16 4:00:00 CDTNotes: (Same as:Solu-MEDROL , A-Methapred) Insulin, Aspart, 4 unit, 0.04 No Longer 11/13/ Sugar Human mL, Route: Active [facility] SUB-Q, Drug form: SOLN, TID-Before Meals, Dosing Weight 153.273, kg, PRN Blood Glucose Results, Start date: 11/13/16 11:25:00 CDT, Duration: 30 day, Stop date: 12/13/16 11:24:00 CDTNotes: Roll in palms of hands gently; Do not shake vigorously. (Same as: NovoLOG) "single patient use only" WASTE: F/P - Black; E - Municipal Trash Bin Stable for 28 days at room temperature. Expires in days from Date Glucagon 1 mg, Route: No Longer Sugar IM, Drug form: Active 2016 [facility] PDR/INJ, PRN, Dosing Weight 153.273, kg, PRN Blood Glucose Results, Start date: 11/13/16 11:25:00 CDT, Duration: 30 day, Stop date: 12/13/16 11:24:00 CDT Dextrose 50% Syringe 25 gm, 50 mL, No Longer Sugar Route: IVP, Active 2016 [facility] Drug Form: INJ, Dosing Weight 153.273, kg, PRN, PRN Blood Glucose Results, Start date: 11/13/16 11:25:00 CDT, Duration: 30 day, Stop date: 12/13/16 11:24:00 CDT methylPREDNISolone 125 mg, 2 mL, Inactive Sugar SODium SUCCinate Route: IVP, 2016 [facility] Drug form: INJ, ONCE, Dosing Weight 153.273, kg, Start date: 11/13/16 9:02:00 CDT, Stop date: 11/13/16 9:02:00 CDTNotes: (Same as:Solu-MEDROL , A-Methapred) Budesonide 0.25 0.5 mg, 2 mL, No Longer Sugar MG/ML Inhalant Route: NEB, Active 2016 [facility] Solution [Pulmicort] Drug form: SUSP, RQ12H, Dosing Weight 153.273, kg, Start date: 11/13/16 9:02:00 CDT, Duration: 30 day, Stop date: 12/13/16 4:00:00 CDTNotes: (Same As: Pulmicort) Allopurinol 100 mg, Route: No Longer Sugar PO, Drug form: Active 2016 [facility] TAB, BID, Dosing Weight 153.273, kg, Start date: 11/13/16 9:00:00 CDT, Duration: 30 day, Stop date: 12/12/16 17:00:00 CDT pantoprazole 40 mg, Route: No Longer Sugar IVP, Drug Active 2016 [facility] form: INJ, Daily, Dosing Weight 153.273, kg, Start date: 11/13/16 9:00:00 CDT, Duration: 30 day, Stop date: 12/12/16 9:00:00 CDTNotes: For IV push reconstitute with 10 ml 0.9% sodium chloride and push over 2 minutes. (Same as: Protonix) Bumex 2 mg, 8 mL, No Longer Sugar Route: IVP, Active 2016 [facility] Drug form: INJ, Q8H, Dosing Weight 153.273, kg, Start date: 11/13/16 9:00:00 CDT, Stop date: 12/12/16 21:30:00 CDTNotes: (Same As: Bumex) Aldactone 25 mg, 1 tab, No Longer Sugar Route: PO, Active 2016 [facility] Drug form: TAB, BID, Dosing Weight 153.273, kg, Start date: 11/13/16 9:00:00 CDT, Duration: 30 day, Stop date: 12/12/16 21:00:00 CDTNotes: (Same As: Aldactone) Albuterol 0.833 3 ml, Route: No Longer Sugar MG/ML / Ipratropium NEB, Drug Active 2016 [facility] [place] 0.167 MG/ML Form: SOLN, Inhalant Solution Dosing Weight 153.273, kg, RQ6H, Start date: 11/13/16 8:00:00 CDT, Duration: 30 day, Stop date: 12/13/16 2:00:00 CDTNotes: (Same as: Duoneb) Thyroxine 200 microgram, No Longer Sugar 2 tab, Route: Active 2016 [facility] PO, Drug form: TAB, [id number], Dosing Weight 153.273, kg, Start date: 11/13/16 6:30:00 CDT, Duration: 30 day, Stop date: 12/12/16 6:30:00 CDTNotes: Take 1 hour before or 2 hours after meal; Enteral feeds may interefere with the absorption of this medication. (Same as:Levothroid, Synthroid) d50 syringe 25 gm, 50 mL, Inactive Sugar Route: INJ, 2016 Drug Form: INJ, Dosing Weight 153.273, kg, ONCE, Start date: 11/13/16 4:53:00 CDT, Stop date: 11/13/16 4:53:00 CDT D5W 1,000 mL 1,000 mL, Inactive Sugar Rate: 40 [facility] ml/hr, Infuse over: 25 hr, Route: IV, Dosing Weight 153.273 kg, Total Volume: 1,000, Start date: 11/13/16 4:52:00 CDT, Duration: 30 day, Stop date: 12/13/16 4:51:00 CDT Vancomycin 500 mg, Route: Inactive Sugar IVPB, Drug 2016 [facility] form: INJ, [id number], Dosing Weight 153.273, kg, Start date: 11/13/16 3:00:00 CDT, Duration: 30 day, Stop date: 12/12/16 15:00:00 CDT vancomycin + sodium 2,000 mg, No Longer Sugar chloride 0.9% 500 mL Route: IVPB, Active 2016 [facility] INJ (for IV set) 500 [id number], Start mL date: 11/13/16 3:00:00 CDT, Duration: 30 day, Stop date: 12/11/16 3:00:00 CDTNotes: TIME CRITICAL MEDICATION (Same As: Vancocin) Infusion rate 2001 mg: infuse over 2.5 hours MEDICATION WASTE Product Size: 1000 mg Product Wasted: ___ mg Dextrose 50% Syringe 12.5 gm, 25 Inactive Sugar mL, Route: 2016 [facility] IVP, Drug Form: INJ, Dosing Weight 153.273, kg, ONCE, NOW, Start date: 11/13/16 2:30:00 CDT, Stop date: 11/13/16 2:30:00 CDT Rocephin 1 gm, Route: No Longer Sugar IVPB, [id number], Active 2016 [facility] Dosing Weight 153.273, kg, Start date: 11/12/16 21:00:00 CDT, Duration: 30 day, Stop date: 12/11/16 21:00:00 CDTNotes: (Same As: Rocephin). Use with 100 mL NS and infuse over 30 min MEDICATION WASTE Product Size: 1000 mg Product Wasted: ___ mg Saline Flush 0.9% 10 ml, Route: No Longer Sugar IVP, Drug Active 2016 [facility] Form: INJ, Dosing Weight 153.273, kg, Q12H, Start date: 11/12/16 21:00:00 CDT, Duration: 30 day, Stop date: 12/12/16 9:00:00 CDTNotes: (Same as: BD Posiflush) heparin 5,000 unit, 1 No Longer Sugar mL, Route: Active 2016 [facility] SUB-Q, Drug form: INJ, Q12H, Dosing Weight 153.273, kg, Start date: 11/12/16 21:00:00 CDT, Duration: 30 day, Stop date: 12/12/16 9:00:00 CDTNotes: porcine heparin sodium phosphate + 30 mmol, 10 No Longer Sugar sodium chloride 0.9% mL, Route: Active [facility] INJ 250 mL IVPB, PRN, Dosing Weight 153.273, kg, PRN Abnormal Lab Result, Start date: 11/12/16 20:29:00 CDT, Duration: 30 day, Stop date: 12/12/16 20:28:00 CDT, FOR ICU USE ONLY Calcium Gluconate 1 gm, 10 mL, No Longer Sugar Route: IVPB, Active 2016 [facility] PRN, Dosing Weight 153.273, kg, PRN Abnormal Lab Result, Start date: 11/12/16 20:29:00 CDT, Duration: 30 day, Stop date: 12/12/16 20:28:00 CDT, FOR ICU USE ONLYNotes: WASTE: F/P - Sink; E - Municipal Trash Bin potassium 2 pkt, Route: No Longer Sugar phosphate-sodium PO, Drug Form: Active 2016 [facility] phosphate 250 mg-280 PDR/REC, mg-160 mg oral Dosing Weight powder for 153.273, kg, reconstitution PRN, PRN Abnormal Lab Result, FOR ICU USE ONLY, Start date: 11/12/16 20:29:00 CDT, Duration: 30 day, Stop date: 12/12/16 20:28:00 CDTNotes: (Same as: Phos-NaK) Each 1.5 gm pkt has 250mg phosphorous. Mix w/2.5oz water and stir. Magnesium Sulfate 2 gm, 50 mL, No Longer Sugar Route: IVPB, Active 2016 Drug form: INJ, PRN, Dosing Weight 153.273, kg, PRN Abnormal Lab Result, Start date: 11/12/16 20:29:00 CDT, Duration: 30 day, Stop date: 12/12/16 20:28:00 CDT, FOR ICU USE ONLYNotes: WASTE: F/P - Sink; E - Municipal Trash Bin potassium phosphate 45 mmol, 15 No Longer Sugar + sodium chloride mL, Route: Active 2016 0.9% INJ 250 mL IVPB, PRN, Dosing Weight 153.273, kg, PRN Abnormal Lab Result, Start date: 11/12/16 20:29:00 CDT, Duration: 30 day, Stop date: 12/12/16 20:28:00 CDT, FOR ICU USE ONLYNotes: (Same as: K Phosphate.) 1 mMol phoshate has 1.47 mEq potassium Infuse over 4 hours Calcium Carbonate 500 mg, 1 tab, No Longer Sugar 500 MG Chewable Route: PO, Active 2016 Tablet Drug form: CHEWTAB, PRN, Dosing Weight 153.273, kg, PRN Abnormal Lab Result, FOR ICU USE ONLY, Start date: 11/12/16 20:29:00 CDT, Duration: 30 day, Stop date: 12/12/16 20:28:00 CDTNotes: (Same As: Tums) Calcium Carbonate 500 ay=670 mg elemental calcium Dose= mg calcium carbonate ( mg elemental calcium) Magnesium Oxide 800 mg, 2 tab, No Longer Sugar Route: PO, Active 2016 Drug form: TAB, PRN, Dosing Weight 153.273, kg, PRN Abnormal Lab Result, FOR ICU USE ONLY, Start date: 11/12/16 20:29:00 CDT, Duration: 30 day, Stop date: 12/12/16 20:28:00 CDTNotes: (Same as: Mag-Ox 400) Magnesium oxide [id number] elemental magnesium Dose=____mg magnesium oxide (___mg elemental magnesium) potassium chloride 20 mEq, 1 tab, No Longer Sugar Route: PO, Active 2016 [facility] Drug form: ERTAB, PRN, Dosing Weight 153.273, kg, PRN Abnormal Lab Result, Start date: 11/12/16 20:29:00 CDT, Duration: 30 day, Stop date: 12/12/16 20:28:00 CDT, FOR ICU USE ONLYNotes: (Same as: K-Dur 20) "Do Not Crush" With food and full glass of water Saline Flush 0.9% 10 ml, Route: No Longer Sugar IVP, Drug Active 2016 [facility] Form: INJ, Dosing Weight 153.273, kg, PRN, PRN Line Flush, Start date: 11/12/16 20:29:00 CDT, Duration: 30 day, Stop date: 12/12/16 20:28:00 CDTNotes: (Same as: BD Posiflush) Albuterol 0.833 3 ml, Route: No Longer Sugar MG/ML / Ipratropium NEB, Drug Active 2016 [facility] [place] 0.167 MG/ML Form: SOLN, Inhalant Solution Dosing Weight 153.273, kg, PRN, PRN Respiratory Protocol, Start date: 11/12/16 20:29:00 CDT, Duration: 30 day, Stop date: 12/12/16 20:28:00 CDTNotes: (Same as: Gia) Ondansetron 4 mg, 2 mL, No Longer Sugar Route: IVP, Active 2016 [facility] Drug form: INJ, Q8H, Dosing Weight 153.273, kg, PRN Nausea & Vomiting, Start date: 11/12/16 20:29:00 CDT, Duration: 30 day, Stop date: 12/12/16 20:28:00 CDTNotes: (Same as: Zofran) MEDICATION WASTE Product Size: 4 mg Product Wasted: ___ mg Bisacodyl 10 mg, 1 supp, No Longer Sugar Route: CT, Active 2016 [facility] Drug form: SUPP, Daily, Dosing Weight 153.273, kg, PRN Other -See Comment, Start date: 11/12/16 20:29:00 CDT, Duration: 30 day, Stop date: 12/12/16 20:28:00 CDTNotes: (Same As: Dulcolax, Bisco-Lax) Nystatin 100 UNT/MG 1 appl, Route: No Longer Sugar Topical Powder TOP, PRN, Drug Active 2016 [facility] form: PWDR, PRN For Fungal Prophylaxis, Start date: 11/12/16 20:29:00 CDT, Duration: 30 day, Stop date: 12/12/16 20:28:00 CDTNotes: (Same as:Mycostatin, Nilstat) For external use only. Acetaminophen 650 mg, 2 tab, No Longer Sugar Route: PO, Active 2016 [facility] Drug form: TAB, Q4H, Dosing Weight 153.273, kg, PRN For Temp > 100.4 F, Start date: 11/12/16 20:29:00 CDT, Duration: 30 day, Stop date: 12/12/16 20:28:00 CDTNotes: Do not exceed 4 gm/day. (Same as: Tylenol) Sulfamethoxazole 800 1 tab, PO, No Longer Sugar MG / Trimethoprim BID, # 14 tab, Active [facility] 160 MG Oral Tablet 0 Refill(s) Lasix 40 mg, 4 mL, No Longer Sugar Route: IVP, Active 2016 [facility] Drug form: INJ, BID Diuretic, Dosing Weight 153.273, kg, Start date: 11/12/16 8:00:00 CDT, Duration: 30 day, Stop date: 12/11/16 16:00:00 CDTNotes: (Same as: Lasix) MEDICATION WASTE Product Size: 40 mg Product Wasted: ___ mg Allergies, Adverse Reactions, Alerts Substance Category Reaction Severity Reaction Status Date Comments Source type Reported glimepiride Assertion Dizziness Drug Active [facility] valsartan Assertion Swelling, Drug Active [facility] Rash, allergy [facility] heart beat Victoza Assertion Fainting, Drug Active [facility] allergy [facility] [place] heart beat Center [facility]FORMIN Assertion Muscle Drug Active [facility] Immunizations Immunization Date Given Site Status Last Comments Source Updated pneumococcal 11/20/2016 Left completed [facility] 23-valent vaccine Deltoid Group,[facility] Results Order Name Results Value Reference Date Interpretation Comments Source Range CHEM PANEL BUN 36 mg/dL 7 - 22 12/03 [facility] PANEL Creatinine 1.83 mg/dL 0.50 - 12/03 [facility] Lvl 1.40 /2016 [facility] PANEL Glucose Lvl 108 mg/dL 70 - 99 12/03 [facility] CHEM PANEL eGFR 31 12/03 Result Comment: The eGFR is calculated using the CKD-EPI formula. In most young, healthy individuals the eGFR will be >90 mL/ min/1.73m2. The eGFR declines with age. An eGFR of 60-89 may be normal in [place] mL/min/1.73 /2016 some populations, particularly the elderly, for whom the CKD-EPI formula has not been extensively validated. Use of the eGFR is not recommended in the following populations: [place] Individuals with unstable creatinine concentrations, including patients and those with serious co-morbid conditions. Patients with extremes in muscle mass or diet. The data above are obtained from the National Kidney Disease Education Program (NKDEP) which additionally recommends that when the eGFR is used in patients with extremes of body mass index for purposes of drug dosing, the eGFR should be multiplied by the estimated BMI. CHEM PANEL Sodium Lvl 138 meq/L 135 - 145 12/03 [facility] CHEM PANEL Chloride Lvl 99 meq/L 95 - 109 12/03 [facility] CHEM PANEL Potassium Lvl 3.6 meq/L 3.5 - 5.1 12/03 [facility] CHEM PANEL CO2 32 meq/L 24 - 32 12/03 [facility] CHEM PANEL AGAP 10.6 meq/L 10.0 - 12/03 20.0 [facility] CHEM PANEL Calcium Lvl 7.7 mg/dL 8.5 - 10.5 12/03 [facility] HEMATOLOGY Lymphocytes 1.7 % 20.0 - 05 MH 40.0 [facility] HEMATOLOGY Segs 91.9 % 45.0 - 12/03 MH 75.0 [facility] HEMATOLOGY Eosinophils # 0.0 K/CMM 0.0 - 0.5 12/03 [facility] HEMATOLOGY Basophils # 0.0 K/CMM 0.0 - 0.2 12/03 [facility] HEMATOLOGY Monocytes # 0.7 K/CMM 0.0 - 0.8 12/03 [facility] HEMATOLOGY Eosinophils 0.1 % 0.0 - 4.0 12/03 [facility] HEMATOLOGY Monocytes 6.3 % 2.0 - 12.0 12/03 [facility] HEMATOLOGY Segs-Bands # 9.8 K/CMM 1.5 - 8.1 12/03 [facility] HEMATOLOGY Basophils 0.0 % 0.0 - 1.0 12/03 [facility] HEMATOLOGY Lymphocytes # 0.2 K/CMM 1.0 - 5.5 12/03 [facility] HEMATOLOGY MCH 28.9 pg 27.0 - 12/03 31.0 [facility] HEMATOLOGY MCV 89.8 fL 80.0 - 12/03 98.0 [facility] HEMATOLOGY MCHC 32.1 g/dL 32.0 - 12/03 36.0 [facility] HEMATOLOGY Hct 25.5 % 36.0 - 12/03 48.0 [facility] HEMATOLOGY RBC 2.84 M/CMM 4.20 - 12/03 5.40 [facility] HEMATOLOGY WBC 10.6 K/CMM 3.7 - 10.4 12/03 [facility] HEMATOLOGY Hgb 8.2 g/dL 12.0 - 12/03 16.0 [facility] HEMATOLOGY RDW 15.5 % 11.5 - 12/03 14.5 [facility] HEMATOLOGY MPV 8.1 fL 7.4 - 10.4 12/03 [facility] HEMATOLOGY Platelet 125 K/CMM 133 - 450 12/03 [facility] Upper GI w Upper GI w Barium esophagram and upper GI, 12/03/201612/03 - Barium Barium /2016 - [place] swallow DX swallow DX [place] HISTORY: Dysphagia. Evaluate for esophageal stricture. Read by: Madhu Ricketts MD Dictated Date/time: 12/03/16 09:19 Electronically Signed by: Madhu Ricketts MD 12/03/16 09:25 FINAL REPORT Fluoroscopic time: 1.3 minutes. Films 18. TECHNIQUE: Barium only. The examination was performed on the fluoroscopic table with the patient in the PATTERSON, AP, and LPO positions. Assistant Offset Press Operator film demonstrates minimal bowel gas. The swallowing mechanism is normal. No evidence of esophageal stricture or ulcer. No evidence of hiatal hernia or reflux. Normal esophageal motility. No evidence of mass or ulceration in the stomach or duodenum. Mildly edematous jejunal small bowel loops may be related to the patient's renal impairment or nutritional status. IMPRESSION: No explanation for dysphagia detected. No evidence of esophageal stricture. Chest 1view Chest 1view EXAM: CHEST 1 VIEW XR 12/03 - MH DX DX - [place] DATE: 12/03/2016 3:00 AM CDT . [place] Read by: Guevara Kiran MD Dictated Date/time: 12/03/16 03:43 TECHNIQUE: AP view of the chest Electronically Signed by: Guevara Kiran MD 12/03/16 03:44 FINAL REPORT COMPARISON: 12/01/2016 chest x-ray FINDINGS: SEE BELOW IMPRESSION: 1. Life-support: Stable right-sided hemodialysis catheter 2. Progressive alveolar and interstitial airspace opacities likely representing worsening pulmonary edema. Pneumonia cannot be excluded 3. Progressive bilateral pleural effusions 4. Stable cardiomegaly CHEM PANEL Glucose Lvl 73 mg/dL 70 - 99 12/02 [facility] CHEM PANEL AGAP 8.4 meq/L 10.0 - 12/02 MH 20.0 [facility] CHEM PANEL Calcium Lvl 7.4 mg/dL 8.5 - 10.5 12/02 [facility] CHEM PANEL eGFR 45 12/02 Result Comment: The eGFR is calculated using the CKD-EPI formula. In most young, healthy individuals the eGFR will be >90 mL/ min/1.73m2. The eGFR declines with age. An eGFR of 60-89 may be normal in mL/min/1.73 /2016 some populations, particularly the elderly, for whom the CKD-EPI formula has not been extensively validated. Use of the eGFR is not recommended in the following populations: [place] m2 [place] Individuals with unstable creatinine concentrations, including patients and those with serious co-morbid conditions. Patients with extremes in muscle mass or diet. The data above are obtained from the National Kidney Disease Education Program (NKDEP) which additionally recommends that when the eGFR is used in patients with extremes of body mass index for purposes of drug dosing, the eGFR should be multiplied by the estimated BMI. CHEM PANEL Chloride Lvl 100 meq/L 95 - 109 12/02 [facility] CHEM PANEL CO2 33 meq/L 24 - 32 12/02 [facility] CHEM PANEL Potassium Lvl 3.4 meq/L 3.5 - 5.1 12/02 [facility] CHEM PANEL BUN 22 mg/dL - 12/02 [facility] CHEM PANEL Creatinine 1.34 mg/dL 0.50 - 12/02 MH Lvl 1.40 [facility] CHEM PANEL Sodium Lvl 138 meq/L 135 - 145 12/02 [facility] BLOOD BANK Antibody Scrn Positive 2 12/02 Result Comment: 12/01/2016 22 :49 [id number] RESULTS /2016 "Significant Findings of positive Antibody Screen called to Clarisse Winn RN at 12/01/2016 22:48 by RB. Read Back OK" [place] (12/01/16 9:27 PM) [facility] BLOOD BANK ABO/Rh A POS 12/02 RESULTS /2016 [facility] BLOOD BANK RBC product Product available 4 12/02 Result Comment: 2016 23:02 [id number] RESULTS /2016 Called to Pa LUND at 12/01/2016 23:02 by RB. [place] (12/01/16 9:27 PM) [facility] CHEM PANEL eGFR 24 12/01 Result Comment: The eGFR is calculated using the CKD-EPI formula. In most young, healthy individuals the eGFR will be >90 mL/ min/1.73m2. The eGFR declines with age. An eGFR of 60-89 may be normal in mL/min/1.73 /2016 some populations, particularly the elderly, for whom the CKD-EPI formula has not been extensively validated. Use of the eGFR is not recommended in the following populations: [place] Individuals with unstable creatinine concentrations, including patients and those with serious co-morbid conditions. Patients with extremes in muscle mass or diet. The data above are obtained from the National Kidney Disease Education Program (NKDEP) which additionally recommends that when the eGFR is used in patients with extremes of body mass index for purposes of drug dosing, the eGFR should be multiplied by the estimated BMI. CHEM PANEL Glucose Lvl 125 mg/dL 70 - 99 12/01 [facility] CHEM PANEL Creatinine 2.29 mg/dL 0.50 - 12/01 Lvl 1.40 [facility] CHEM PANEL BUN 47 mg/dL - 12/01 [facility] CHEM PANEL Sodium Lvl 136 meq/L 135 - 145 12/01 [facility] CHEM PANEL AGAP 12.1 meq/L 10.0 - 12/01 20.0 [facility] CHEM PANEL CO2 32 meq/L 24 - 32 12/01 [facility] CHEM PANEL Chloride Lvl 96 meq/L 95 - 109 12/01 [facility] CHEM PANEL Potassium Lvl 4.1 meq/L 3.5 - 5.1 12/01 [facility] CHEM PANEL Calcium Lvl 7.7 mg/dL 8.5 - 10.5 12/01 [facility] HEMATOLOGY MCV 89.1 fL 80.0 - 12/01 MH 98.0 [facility] HEMATOLOGY Hct 23.0 % 36.0 - 12/01 MH 48.0 [facility] HEMATOLOGY MCH 28.0 pg 27.0 - 12/01 MH 31.0 [facility] HEMATOLOGY MCHC 31.5 g/dL 32.0 - 12/01 MH 36.0 [facility] HEMATOLOGY RDW 15.4 % 11.5 - 12/01 MH 14.5 [facility] HEMATOLOGY MPV 8.1 fL 7.4 - 10.4 12/01 [facility] HEMATOLOGY Platelet 119 K/CMM 133 - 450 12/01 [facility] HEMATOLOGY WBC 11.4 K/CMM 3.7 - 10.4 12/01 [facility] HEMATOLOGY RBC 2.58 M/CMM 4.20 - 12/01 MH 5.40 [facility] HEMATOLOGY Hgb 7.2 g/dL 12.0 - 12/01 MH 16.0 [facility] HEMATOLOGY Eosinophils # 0.0 K/CMM 0.0 - 0.5 12/01 [facility] HEMATOLOGY Basophils # 0.0 K/CMM 0.0 - 0.2 12/01 [facility] HEMATOLOGY Segs-Bands # 10.8 K/CMM 1.5 - 8.1 12/01 [facility] HEMATOLOGY Basophils 0.0 % 0.0 - 1.0 12/01 [facility] HEMATOLOGY Lymphocytes # 0.1 K/CMM 1.0 - 5.5 12/01 [facility] HEMATOLOGY Monocytes # 0.5 K/CMM 0.0 - 0.8 12/01 [facility] HEMATOLOGY Lymphocytes 1.0 % 20.0 - 12/01 MH 40.0 [facility] HEMATOLOGY Eosinophils 0.1 % 0.0 - 4.0 12/01 [facility] HEMATOLOGY Monocytes 4.1 % 2.0 - 12.0 12/01 [facility] HEMATOLOGY Segs 94.8 % 45.0 - 12/01 75.0 [facility] IMMUNOLOGY Hep C Ab Negative 12/01 [place] *NA* [place] (12/01/16 5:48 AM) Chest 1view Chest 1view EXAM: CHEST 1 VIEW XR 12/01 - DX DX - [place] DATE: 12/01/2016 7:00 AM CDT . [place] Read by: Guevara Kiran MD Dictated Date/time: 12/01/16 03:29 TECHNIQUE: AP view of the chest Electronically Signed by: Guevara Kiran MD 12/01/16 03:30 FINAL REPORT COMPARISON: 11/28/2016 chest x-ray FINDINGS: SEE BELOW IMPRESSION: 1. Life-support: Interval placement of right-sided dialysis catheter 2. Stable cardiomegaly, pulmonary edema, pleural effusions IMMUNOLOGY Hep B Core Ab Negative Negative 11/30 [place] *NA* [place] (11/30/16 2:56 PM) IMMUNOLOGY Hep Bs Ag Negative Negative 11/30 [place] *NA* [place] (11/30/16 2:56 PM) IMMUNOLOGY Hep Bs Ab 3.8 mIU/mL <=7.4 11/30 mIU/mL /2016 [facility] CVC insert CVC insert PROCEDURES PERFORMED: 11/30 tunnel tunnel w/-w/o /2016 - [place] w/-w/o port/pump age 1. Placement of tunnelled hemodialysis catheter [place] port/pump 5+ yrs VR age 5+ yrs 2. Ultrasound guidance for vascular access. Read by: Basilio Kiran MD VR Dictated Date/time: 12/01/16 10:29 3. Moderate sedation. Electronically Signed by: Basilio Kiran MD 12/01/16 10:31 FINAL REPORT HISTORY: Renal failure, needs initiation of hemodialysis CONSENT: Prior to the procedure, the procedure, risks, benefits and alternatives were discussed with the patient. Written informed consent was obtained and documented in the patient's chart. SEDATION: Moderate sedation was administered by the radiology nurse and supervised by myself for the duration of the procedure. Total sedation time was 30 minutes. Fluoro time: 1.1 min DAP: [id number] mgy-cm. PROCEDURE: Sterile barrier technique was followed including: Cap and mask, sterile gown, sterile gloves, and large sterile sheet. Hand hygiene, and 2% chlorhexidine for cutaneous antisepsis (or acceptable alternative antiseptics, per current guideline). The right neck and upper chest were prepped and draped in a standard sterile fashion. After administering local anesthesia a micropuncture kit was utilized access right internal jugular vein.The right i nternal jugular vein is patent and compressible. Images were sent to PACS for archiving. The skin and subcutaneous soft tissues along the anticipated course of the tunnel were anesthetized with 1% lidocaine with epinephrine. A small dermatotomy was made and the dialysis catheter was tunnele d under the skin to the site of the puncture in the lower neck. A 0.035 wire was then advanced through the micropuncture sheath to the level of the IVC. Over the 0.035 wire the puncture site was sequentially dilated, ultimately with an 18 [place] peel-away sheath. T he wire and dilator were removed and dialysis catheter was advanced through the peel-away sheath. The sheath was peeled-away and the catheter was manipulated into position. There was excellent blood return from both ports. Each port was flushed with saline and packed with heparin. The catheter was attached to the skin using two silk sutures. The patient tolerated procedure well, and there were no immediate complications. FINDINGS: The right internal jugular vein is patent and fully compressible. IMPRESSION: Placement of tunneled right IJ hemodialysis catheter as described above. A 19 cm tip to cuff length catheter was placed. ANEMIA % Satur Fe 22 % 12 - 57 11/30 [facility] ANEMIA UIBC 131 ug/dl 110 - 370 11/30 [facility] ANEMIA Iron 38 ug/dl 30 - 160 11/30 [facility] ANEMIA TIBC 169 ug/dl 228 - 428 11/30 [facility] HEMATOLOGY Hypochrom 1+ None Seen 11/30 [place] (11/30/16 5:49 AM) [facility] HEMATOLOGY Macrocyte 1+ None Seen 11/30 [place] *ABN* [place] (11/30/16 5:49 AM) HEMATOLOGY Monocytes # 0.2 K/CMM 0.0 - 0.8 11/30 [facility] HEMATOLOGY Lymphocytes # 0.2 K/CMM 1.0 - 5.5 11/30 [facility] HEMATOLOGY Eosinophils 0.0 % 0.0 - 4.0 11/30 [facility] HEMATOLOGY Segs-Bands # 11.8 K/CMM 1.5 - 8.1 11/30 [facility] HEMATOLOGY Basophils 0.3 % 0.0 - 1.0 11/30 [facility] HEMATOLOGY Basophils # 0.0 K/CMM 0.0 - 0.2 11/30 [facility] HEMATOLOGY Eosinophils # 0.0 K/CMM 0.0 - 0.5 11/30 [facility] HEMATOLOGY Segs 96.8 % 45.0 - 11/30 MH 75.0 [facility] HEMATOLOGY Monocytes 1.7 % 2.0 - 12.0 11/30 [facility] HEMATOLOGY Plt Morph Normal 11/30 [place] (11/30/16 5:49 AM) [place] HEMATOLOGY Lymphocytes 1.2 % 20.0 - 11/30 MH 40.0 [facility] HEMATOLOGY MCHC 33.0 g/dL 32.0 - 11/30 MH 36.0 [facility] HEMATOLOGY MCH 29.1 pg 27.0 - 11/30 MH 31.0 [facility] HEMATOLOGY MCV 88.3 fL 80.0 - 11/30 MH 98.0 [facility] HEMATOLOGY MPV 8.6 fL 7.4 - 10.4 11/30 [facility] HEMATOLOGY Platelet 101 K/CMM 133 - 450 11/30 [facility] HEMATOLOGY RDW 15.7 % 11.5 - 11/30 MH 14.5 [facility] HEMATOLOGY WBC 12.2 K/CMM 3.7 - 10.4 11/30 [facility] HEMATOLOGY Hct 23.2 % 36.0 - 11/30 MH 48.0 /2016 [facility] HEMATOLOGY Hgb 7.6 g/dL 12.0 - 11/30 MH 16.0 [facility] HEMATOLOGY RBC 2.62 M/CMM 4.20 - 11/30 MH 5.40 /2016 [facility] HEMATOLOGY PT 13.8 s 12.0 - 11/30 MH 14.7 [facility] HEMATOLOGY PTT 28.4 s 22.9 - 11/30 MH 35.8 /2016 [facility] HEMATOLOGY INR 1.04 0.85 - 11/30 MH 1.17 /2016 [facility] ANEMIA Iron 35 ug/dl 30 - 160 11/29 STUDY [place] ANEMIA TIBC 129 ug/dl 228 - 428 11/29 [facility] ANEMIA % [place] 27 % 12 - 57 11/29 [facility] ANEMIA UIBC 94 ug/dl 110 - 370 11/29 [facility] HEMATOLOGY Retic Auto 0.3 % 0.5 - 1.5 11/29 [facility] BLOOD BANK AB Sendout Anti-K 11/28 RESULTS [facility] BLOOD BANK ABO/Rh A POS 11/28 Result Comment: 11/28/2016 10:16 [id number] RESULTS Mixed field reactivity in ABO and Rh typing is consistent with recent transfusion of O negative RBC on 11/18/2016. Anti- Valeri identified. 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 LE [facility] BLOOD BANK Antibody Scrn Positive 3 11/28 Result Comment: 11/28/2016 07 :26 [id number] RESULTS /2016 "Significant Findings called to Jeremie LUND at 2016 07:26 by MANE. Read Back OK." [facility] (11/28/16 6:30 AM) [facility] BLOOD BANK RBC product Product available 11/28 [place] (11/28/16 6:00 AM) [facility] HEMATOLOGY Hypochrom 1+ None Seen 11/28 [place] (11/28/16 5:08 AM) [facility] HEMATOLOGY Plt Morph Normal 11/28 [place] (11/28/16 5:08 AM) [facility] Brain wo Brain wo PATIENT NAME: CRYSTAL FERGUSON 11/28 - contrast CT contrast CT - [place] : 1965; Age: 51 years y/o Female [facility] MR: [id number] Read by: Guevara Kiran MD Dictated Date/time: 11/28/16 09:17 Electronically Signed by: Guevara Kiran MD 11/28/16 09:18 FINAL REPORT STUDY: Brain wo contrast CT 11/28/2016 2:34 AM CDT ORDERING PHYSICIAN: Danny Tapia MD CLINICAL INDICATION: - dizziness and forgetfulness; COMPARISON: None TECHNIQUE: Noncontrast images of the brain are obtained from the skull base to the vertex. Axial, sagittal, and coronal images are interpreted. DLP: 614 mGy-cm This exam was performed according to our departmental dose-optimization protocol, which includes automated exposure control, adjustment of the mA and/ or kV according to patient size and/or use of iterative reconstruction technique. FINDINGS: BRAIN PARENCHYMA: There is no evidence of cerebral edema, mass, mass effect , hemorrhage, recent cortical infarct. The brain volume is age appropriate. The tyler-white distinction is maintained. CEREBELLOPONTINE REGIONS AND SKULL BASE: The cerebellopontine angles appear unremarkable. No skull base abnormality is seen. VENTRICLES/SULCI/CISTERNS: The ventricles are normal in size and configuration. The basal cisterns are patent. ORBITS, VISUALIZED PARANASAL SINUSES AND MASTOIDS: Paranasal sinuses are clear. The mastoid air cells are clear. No orbital pathology is seen. IMPRESSION: Age-appropriate appearance of brain without acute findings identified Chest 1view Chest 1view Clinical History : , - chest pain 11/28 - MH DX - [place] Exam : Portable AP view of the chest 11/28/2016 4:59 AM CDT Read by: Natalie Dinh MD Dictated Date/time: 11/28/16 06:03 Electronically Signed by: Natalie Dinh MD 11/28/16 06:04 FINAL REPORT Comparisons : Portable AP view of the chest 11/25/2016 Findings : There is moderate diffuse peribronchial thickening throughout the lungs bilaterally. There is bibasilar and retrocardiac airspace disease. The heart is enlarged. The mediastinal contours are distorted by patient rotation to the left . The thoracic spine is age appropriate. The shoulders are unremarkable. Limited evaluation of the upper abdomen demonstrates no gross abnormalities. Impression: 1. Cardiomegaly with stable moderate pulmonary edema. 2. Decreased bilateral pleural effusions with lower lobe airspace disease. 3. Rotated exam.. CHEM PANEL A/G Ratio 0.9 0.7 - 1.6 11/26 [facility] CHEM PANEL B/C Ratio 20 6 - 25 11/26 [facility] CHEM PANEL Globulin 2.7 g/dL 2.7 - 4.2 11/26 [facility] CHEM PANEL Total Protein 5.2 g/dL 6.4 - 8.4 11/26 [facility] CHEM PANEL Alk Phos 54 unit/L 39 - 136 11/26 [facility] CHEM PANEL Bili Total 0.7 mg/dL 0.2 - 1.3 11/26 [facility] CHEM PANEL ALT 27 unit/L 0 - 65 11/26 [facility] CHEM PANEL AST 10 unit/L 0 - 37 11/26 [facility] CHEM PANEL Albumin Lvl 2.5 g/dL 3.5 - 5.0 11/26 [facility] URINE AND UA Mucus Few /LPF None Seen 11/26 STOOL /LPF [place] URINE AND UA Hyal Cast 1 /LPF 0 - 2 11/26 [facility] URINE AND UA Bacteria Occasional None Seen 11/26 STOOL /HPF /HPF [place] URINE AND UA Leuk Est Negative Negative 11/26 [place] (11/26/16 2:19 AM) [place] URINE AND UA WBC 2 /HPF 0 - 5 11/26 [place] URINE AND UA Sq Epi Occasional Few /LPF 11/26 STOOL /LPF [place] URINE AND UA RBC 10 /HPF 0 - 2 11/26 [place] URINE AND UA Nitrite Negative Negative 11/26 [place] (11/26/16 2:19 AM) [place] URINE AND UA Bili Negative Negative 11/26 [place] *NA* [place] (11/26/16 2:19 AM) URINE AND UA Blood Small Negative 11/26 [place] *ABN* [place] (11/26/16 2:19 AM) URINE AND UA Ketones Negative Negative 11/26 STOOL mg/dL mg/dL [place] URINE AND UA Protein >=300 mg/dL Negative 11/26 STOOL mg/dL [place] URINE AND UA Glucose 50 mg/dL Negative 11/26 STOOL mg/dL [place] URINE AND UA Spec Grav 1.009 <=1.030 11/26 [place] URINE AND UA <=1.0 mg/dL 0.1 - 1.0 11/26 STOOL Urobilinogen [place] URINE AND UA pH 5.0 5.0 - 8.0 11/26 [facility] URINE AND UA Turbidity Clear Clear 11/26 STOOL [place] (11/26/16 2:19 AM) [place] URINE AND UA Color Light Yellow Yellow 11/26 [place] *NA* [place] (11/26/16 2:19 AM) CHEM PANEL eGFR 11/25 Result Comment: The eGFR is calculated using the CKD-EPI formula. In most young, healthy individuals the eGFR will be >90 mL/ min/1.73m2. The eGFR declines with age. An eGFR of 60-89 may be normal in mL/min/1.73 /2017 some populations, particularly the elderly, for whom the CKD-EPI formula has not been extensively validated. Use of the eGFR is not recommended in the following populations: [place] m2 [place] Individuals with unstable creatinine concentrations, including patients and those with serious co-morbid conditions. Patients with extremes in muscle mass or diet. The data above are obtained from the National Kidney Disease Education Program (NKDEP) which additionally recommends that when the eGFR is used in patients with extremes of body mass index for purposes of drug dosing, the eGFR should be multiplied by the estimated BMI. CHEM PANEL AGAP 12.0 meq/L 10.0 - 11/25 20.0 [place] CHEM PANEL CO2 29 meq/L 24 - 32 11/25 [facility] CHEM PANEL Calcium Lvl 7.9 mg/dL 8.5 - 10.5 11/25 [facility] CHEM PANEL Sodium Lvl 129 meq/L 135 - 145 11/25 [facility] CHEM PANEL Potassium Lvl 5.0 meq/L 3.5 - 5.1 11/25 [facility] CHEM PANEL Chloride Lvl 93 meq/L 95 - 109 11/25 [facility] CHEM PANEL Glucose Lvl 200 mg/dL 70 - 99 11/25 [facility] CHEM PANEL BUN 61 mg/dL 7 - 22 11/25 [facility] CHEM PANEL Creatinine 3.06 mg/dL 0.50 - 11/25 Lvl 1.40 [facility] Chest 1view Chest 1view Clinical History : , Shortness of breath - DX DX - [place] Exam : Portable AP view of the chest 11/25/2016 3:00 AM CDT Read by: Natalie Dinh MD Dictated Date/time: 11/25/16 03:32 Electronically Signed by: Natalie Dinh MD 11/25/16 03:33 FINAL REPORT Comparisons : Portable AP view of the chest 11/24/2016 Findings : There is a stable left IJ dialysis catheter with its tip in the mid SVC. There is stable diffuse peribronchial thickening throughout the lungs bilaterally. There are small bilateral pleural effusions with increasing bilateral lower lobe airspace disease. The heart is stable in size. The mediastinal contours are distorted by patient rotation to the left . The thoracic spine is age appropriate. The shoulders are unremarkable. Limited evaluation of the upper abdomen demonstrates no gross abnormalities. Impression: 1. Stable left IJ dialysis catheter. 2. Cardiomegaly with stable pulmonary edema. 3. Increasing bilateral pleural effusions with bilateral lower lobe airspace disease. CHEM PANEL B/C Ratio 19 6 - 25 11/24 [place] CHEM PANEL Globulin 2.7 g/dL 2.7 - 4.2 11/24 [facility] CHEM PANEL AGAP 12.8 meq/L 10.0 - 11/24 MH 20.0 [facility] CHEM PANEL A/G Ratio 0.9 0.7 - 1.6 11/24 [facility] CHEM PANEL Glucose Lvl 203 mg/dL 70 - 99 11/24 [facility] CHEM PANEL BUN 53 mg/dL 7 - 22 11/24 [facility] CHEM PANEL Sodium Lvl 132 meq/L 135 - 145 11/24 [facility] CHEM PANEL Potassium Lvl 4.8 meq/L 3.5 - 5.1 11/24 [facility] CHEM PANEL Alk Phos 53 unit/L 39 - 136 11/24 [facility] CHEM PANEL Creatinine 2.79 mg/dL 0.50 - 11/24 MH Lvl 1.40 /2016 [facility] CHEM PANEL CO2 30 meq/L 24 - 32 11/24 [facility] CHEM PANEL Chloride Lvl 94 meq/L 95 - 109 11/24 [facility] CHEM PANEL eGFR 19 11/24 Result Comment: The eGFR is calculated using the CKD-EPI formula. In most young, healthy individuals the eGFR will be >90 mL/ min/1.73m2. The eGFR declines with age. An eGFR of 60-89 may be normal in mL/min/1.73 /2016 some populations, particularly the elderly, for whom the CKD-EPI formula has not been extensively validated. Use of the eGFR is not recommended in the following populations: [place] m2 [place] Individuals with unstable creatinine concentrations, including patients and those with serious co-morbid conditions. Patients with extremes in muscle mass or diet. The data above are obtained from the National Kidney Disease Education Program (NKDEP) which additionally recommends that when the eGFR is used in patients with extremes of body mass index for purposes of drug dosing, the eGFR should be multiplied by the estimated BMI. CHEM PANEL Albumin Lvl 2.3 g/dL 3.5 - 5.0 11/24 [facility] CHEM PANEL ALT 19 unit/L 0 - 65 11/24 [facility] CHEM PANEL Calcium Lvl 7.8 mg/dL 8.5 - 10.5 11/24 [facility] CHEM PANEL Total Protein 5.0 g/dL 6.4 - 8.4 11/24 [facility] CHEM PANEL AST 8 unit/L 0 - 37 11/24 [facility] CHEM PANEL Bili Total 0.7 mg/dL 0.2 - 1.3 11/24 [facility] HEMATOLOGY RBC 2.65 M/CMM 4.20 - 11/24 MH 5.40 [facility] HEMATOLOGY WBC 13.7 K/CMM 3.7 - 10.4 11/24 [facility] HEMATOLOGY Hgb 7.7 g/dL 12.0 - 11/24 MH 16.0 [facility] HEMATOLOGY Platelet 114 K/CMM 133 - 450 11/24 [facility] HEMATOLOGY MPV 8.4 fL 7.4 - 10.4 11/24 [facility] HEMATOLOGY MCH 29.1 pg 27.0 - 11/24 MH 31.0 [facility] HEMATOLOGY RDW 16.1 % 11.5 - 11/24 MH 14.5 [facility] HEMATOLOGY MCV 89.4 fL 80.0 - 11/24 MH 98.0 2017 [facility] HEMATOLOGY Hct 23.7 % 36.0 - 11/24 MH 48.0 [facility] HEMATOLOGY MCHC 32.5 g/dL 32.0 - 11/24 MH 36.0 [facility] HEMATOLOGY Segs 98.5 % 45.0 - 11/24 MH 75.0 2017 [facility] HEMATOLOGY Lymphocytes 1.4 % 20.0 - 11/24 MH 40.0 [facility] HEMATOLOGY Eosinophils # 0.0 K/CMM 0.0 - 0.5 11/24 [facility] HEMATOLOGY Monocytes # 0.0 K/CMM 0.0 - 0.8 11/24 [facility] HEMATOLOGY Basophils # 0.0 K/CMM 0.0 - 0.2 11/24 [facility] HEMATOLOGY Monocytes 0.1 % 2.0 - 12.0 11/24 [facility] HEMATOLOGY Basophils 0.0 % 0.0 - 1.0 11/24 [facility] HEMATOLOGY Eosinophils 0.0 % 0.0 - 4.0 11/24 [facility] HEMATOLOGY Lymphocytes # 0.2 K/CMM 1.0 - 5.5 11/24 [facility] HEMATOLOGY Segs-Bands # 13.5 K/CMM 1.5 - 8.1 11/24 [facility] Chest 1view Chest 1view Clinical History : , Abnormal chest sounds - DX - [place] Exam : Portable AP view of the chest 11/24/2016 3:00 AM CDT Read by: Natalie Dinh MD Dictated Date/time: 11/24/16 04:32 Electronically Signed by: Natalie Dinh MD 11/24/16 04:37 FINAL REPORT Comparisons : Portable AP view of the chest 11/23/2016 Findings : There is a left IJ dialysis catheter with its tip in the mid SVC. There is increasing moderate diffuse peribronchial thickening throughout the lungs bilaterally. There are small bilateral pleural effusions with retrocardiac airspace disease. The heart is enlarged. The mediastinal contours are distorted by patient rotation to the left . The thoracic spine is age appropriate. The shoulders are unremarkable. Limited evaluation of the upper abdomen demonstrates no gross abnormalities. Impression: 1. Cardiomegaly with increasing pulmonary edema. 2. Bilateral pleural effusions with retrocardiac airspace disease. 3. Rotated exam. HEMATOLOGY PTT 26.0 s 22.9 - 11/23 MH 35.8 [place] BODY FLUIDS Prot BF Type Pleural 11/23 [place] *NA* [place] (11/23/16 2:30 PM) BODY FLUIDS Protein BF 1.6 g/dL 11/23 [place] BODY FLUIDS LDH BF Type Pleural 11/23 [place] *NA* [place] (11/23/16 2:30 PM) BODY FLUIDS LDH BF 226 unit/L 11/23 [facility] BODY FLUIDS Gluc BF Type Pleural 11/23 [place] *NA* [place] (11/23/16 2:30 PM) BODY FLUIDS Glucose BF 163 mg/dL 11/23 [place] BODY FLUIDS Clarity BF Slight Cloudy Clear 11/23 [place] (11/23/16 2:30 PM) [place] [address] /mm3 11/23 [place] BODY FLUIDS Supernat BF Light Yellow Colorless 11/23 [place] *ABN* [place] (11/23/16 2:30 PM) BODY FLUIDS WBC BF 3375 /mm3 11/23 [place] BODY FLUIDS Color BF Red Colorless 11/23 [place] *ABN* [place] (11/23/16 2:30 PM) BODY FLUIDS Comment BF Cytopatholo 11/23 gy order: [place] GN: [place] [id number]. BODY FLUIDS CellCnt BF Pleural 11/23 [place] (11/23/16 2:30 PM) [place] BODY FLUIDS Lymph BF 14 % 11/23 [facility] BODY FLUIDS Meso BF Occasional 11/23 [place] (11/23/16 2:30 PM) [place] BODY FLUIDS Macrophage BF 74 % 11/23 [place] BODY FLUIDS Eos BF 0 % 11/23 [facility] BODY FLUIDS Segs BF 12 % 11/23 [facility] HEMATOLOGY INR 1.08 0.85 - 11/23 MH 1.17 [place] HEMATOLOGY PT 14.2 s 12.0 - 11/23 MH 14.7 /2016 [facility] HEMATOLOGY Hgb 8.1 g/dL 12.0 - 11/23 MH 16.0 [facility] HEMATOLOGY Hct 25.4 % 36.0 - 11/23 48.0 [facility] Chest 1view Chest 1view Clinical history: Pleural effusion. 11/23 - DX DX - [place] : 1965. Read by: Morris Schmitt MD Dictated Date/time: 11/23/16 15:34 Electronically Signed by: Morris Schmitt MD 11/23/16 15:37 FINAL REPORT Technique: Portable AP chest x-ray. Comparison: 11/23/2016 at 0154 chest x- ray. CT chest 11/13/2016.. Status post ultrasound-guided right thoracentesis at 1420 Heart size: Mildly enlarged. Lungs: Significant improvement pulmonary aeration. Persistent patchy infiltrate/atelectasis at the left base. Pleura: Interval drainage of right pleural effusion. No pneumothorax. Mediastinum and lindsay: Unremarkable. Musculoskeletal: Thoracic spondylosis. Support tubings: Left IJ catheter upper SVC. Impression: 1. Post right thoracentesis without pneumothorax. 2. Persistent mild left basilar infiltrate/atelectasis. Thoracentes Thoracentesis ULTRASOUND GUIDED RIGHT THORACENTESIS, 11/23/201611/23 - is wo wo catheter /2016 - [place] catheter US US [place] HISTORY: Right pleural effusion. Read by: Madhu Ricketts MD Dictated Date/time: 11/23/16 16:26 Electronically Signed by: Madhu Ricketts MD 11/23/16 16:28 FINAL REPORT After obtaining informed consent, the right pleural effusion was localized with ultrasound. The skin was cleansed and anesthetized with 5 cc of 1% Lidocaine. A Magine catheter was used to access the flu id. The initial puncture yielded grossly bloody fluid. The catheter was repositioned. 750 mL of serosanguineous fluid were aspirated. Specimens were sent to lab as requested. The patient tolerated th e procedure well with no immediate complications. Images were recorded before, during and following the procedure. IMPRESSION: Successful ultrasound-guided right thoracentesis. ELECTROLYTE CO2 30 meq/L 24 - 32 11/23 S [facility] ELECTROLYTE Potassium Lvl 4.8 meq/L 3.5 - 5.1 11/23 S [place] ELECTROLYTE Calcium Lvl 7.9 mg/dL 8.5 - 10.5 11/23 S [place] ELECTROLYTE Chloride Lvl 95 meq/L 95 - 109 11/23 S /2016 [facility] ELECTROLYTE Sodium Lvl 133 meq/L 135 - 145 11/23 S /2016 [facility] ELECTROLYTE eGFR 22 11/23 Result Comment: The eGFR is calculated using the CKD-EPI formula. In most young, healthy individuals the eGFR will be >90 mL/ min/1.73m2. The eGFR declines with age. An eGFR of 60-89 may be normal in S mL/min/1.73 /2016 some populations, particularly the elderly, for whom the CKD-EPI formula has not been extensively validated. Use of the eGFR is not recommended in the following populations: [place] Individuals with unstable creatinine concentrations, including patients and those with serious co-morbid conditions. Patients with extremes in muscle mass or diet. The data above are obtained from the National Kidney Disease Education Program (NKDEP) which additionally recommends that when the eGFR is used in patients with extremes of body mass index for purposes of drug dosing, the eGFR should be multiplied by the estimated BMI. ELECTROLYTE BUN 45 mg/dL 7 - 22 11/23 S /2016 [place] ELECTROLYTE Creatinine 2.47 mg/dL 0.50 - 11/23 S Lvl 1.40 [facility] ELECTROLYTE Glucose Lvl 163 mg/dL 70 - 99 11/23 S [place] ELECTROLYTE AGAP 12.8 meq/L 10.0 - 11/23 S 20.0 [place] HEMATOLOGY Hct 25.9 % 36.0 - 11/23 MH 48.0 [facility] HEMATOLOGY Hgb 8.3 g/dL 12.0 - 11/23 MH 16.0 [place] Chest 1view Chest 1view Clinical History : , Abnormal chest sounds - DX DX - [place] Exam : Portable AP view of the chest 11/23/2016 3:00 AM CDT Read by: Natalie Dinh MD Dictated Date/time: 11/23/16 04:11 Electronically Signed by: Natalie Dinh MD 11/23/16 04:12 FINAL REPORT Comparisons : Portable AP view of the chest 11/21/2016 Findings : There is a left IJ CVC with its tip in the mid SVC. There is increasing moderate diffuse peribronchial thickening throughout the lungs bilaterally. There are increasing moderate bilateral pleural effusions with bilateral lower lobe airspace disease.. The heart is enlarged. The mediastinal contours are distorted by patient rotation to the left . The thoracic spine is age appropriate. The shoulders are unremarkable. Limited evaluation of the upper abdomen demonstrates no gross abnormalities. Impression: 1. Increasing pulmonary edema with increasing bilateral pleural effusions and lower lobe airspace disease. 2. Stable left IJ CVC. HEMATOLOGY MCH 29.3 pg 27.0 - 11/22 MH 31.0 [facility] HEMATOLOGY MCV 90.2 fL 80.0 - 11/22 MH 98.0 [place] HEMATOLOGY MPV 8.0 fL 7.4 - 10.4 11/22 [facility] HEMATOLOGY MCHC 32.5 g/dL 32.0 - 11/22 MH 36.0 [place] HEMATOLOGY RDW 16.8 % 11.5 - 11/22 MH 14. [place] HEMATOLOGY Platelet 133 K/CMM 133 - 450 11/22 [place] HEMATOLOGY RBC 2.83 M/CMM 4.20 - 11/22 MH 5.40 [place] HEMATOLOGY WBC 18.4 K/CMM 3.7 - 10.4 11/22 [place] HEMATOLOGY Basophils # 0.0 K/CMM 0.0 - 0.2 11/22 [place] HEMATOLOGY Monocytes 3.5 % 2.0 - 12.0 11/22 [place] HEMATOLOGY Eosinophils 0.1 % 0.0 - 4.0 11/22 [place] HEMATOLOGY Lymphocytes 1.3 % 20.0 - 11/22 MH 40.0 [place] HEMATOLOGY Basophils 0.1 % 0.0 - 1.0 11/22 [facility] HEMATOLOGY Monocytes # 0.6 K/CMM 0.0 - 0.8 11/22 [facility] HEMATOLOGY Eosinophils # 0.0 K/CMM 0.0 - 0.5 11/22 [place] HEMATOLOGY Lymphocytes # 0.2 K/CMM 1.0 - 5.5 11/22 [place] HEMATOLOGY Segs 95.0 % 45.0 - 11/22 MH 75.0 [place] HEMATOLOGY Segs-Bands # 17.4 K/CMM 1.5 - 8.1 11/22 [place] HEMATOLOGY MPV 8.2 fL 7.4 - 10.4 11/21 [place] HEMATOLOGY MCH 28.8 pg 27.0 - 11/21 MH 31.0 [place] HEMATOLOGY Platelet 117 K/CMM 133 - 450 11/21 [place] HEMATOLOGY RDW 16.7 % 11.5 - 11/21 MH 14. [place] HEMATOLOGY WBC 19.3 K/CMM 3.7 - 10.4 11/21 [place] HEMATOLOGY MCV 90.3 fL 80.0 - 11/21 MH 98.0 [place] HEMATOLOGY MCHC 31.9 g/dL 32.0 - 11/21 MH 36.0 [place] HEMATOLOGY RBC 2.89 M/CMM 4.20 - 11/21 MH 5.40 /2016 [place] HEMATOLOGY Basophils # 0.0 K/CMM 0.0 - 0.2 11/21 [place] HEMATOLOGY Eosinophils # 0.0 K/CMM 0.0 - 0.5 11/21 [place] HEMATOLOGY Lymphocytes 1.0 % 20.0 - 11/21 MH 40.0 [place] HEMATOLOGY Segs 97.0 % 45.0 - 11/21 MH 75.0 [place] HEMATOLOGY Monocytes # 0.4 K/CMM 0.0 - 0.8 11/21 [place] HEMATOLOGY Monocytes 2.0 % 2.0 - 12.0 11/21 [place] HEMATOLOGY Lymphocytes # 0.2 K/CMM 1.0 - 5.5 11/21 [place] HEMATOLOGY Segs-Bands # 18.7 K/CMM 1.5 - 8.1 11/21 [place] HEMATOLOGY Basophils 0.0 % 0.0 - 1.0 11/21 [place] HEMATOLOGY Eosinophils 0.0 % 0.0 - 4.0 11/21 [place] Chest 1view Chest 1view Clinical History : , Abnormal chest sounds - DX - [place] Exam : Portable AP view of the chest 11/21/2016 3:00 AM CDT Read by: Natalie Dinh MD Dictated Date/time: 11/21/16 03:28 Electronically Signed by: Natalie Dinh MD 11/21/16 03:29 FINAL REPORT Comparisons : Portable AP view of the chest 11/20/2016 Findings : There is moderate diffuse peribronchial thickening throughout the lungs bilaterally. There are moderate bilateral pleural effusions with patchy airspace opacities bilaterally. The heart is enlarged. The mediastinal contours are normal in appearance. There is a stable left IJ large bore catheter with its tip in the region of the azygos vein. The thoracic spine is age appropriate. The shoulders are unremarkable. Limited evaluation of the upper abdomen demonstrates no gross abnormalities. Impression: 1. Cardiomegaly with moderate pulmonary edema. 2. Moderate bilateral pleural effusions with patchy airspace opacities bilaterally. 3. Left IJ large bore catheter tip in the region of the azygos vein. HEMATOLOGY Bands 9.0 % 0.0 - 11.0 11/20 [place] HEMATOLOGY Atypical 0.0 % <=0.0 % 11/20 Lymphs [place] HEMATOLOGY Tot Cell Ct 100 11/20 [place] HEMATOLOGY Anisocyte 1+ None Seen 11/20 [place] *ABN* [place] (11/20/16 4:02 AM) HEMATOLOGY Hypochrom 1+ None Seen 11/20 [facility] (11/20/16 4:02 AM) [place] Chest 1view Chest 1view Clinical History : , Abnormal chest sounds - DX DX - [place] Exam : Portable AP view of the chest 11/20/2016 3:00 AM CDT Read by: Natalie Dinh MD Dictated Date/time: 11/20/16 04:30 Electronically Signed by: Natalie Dinh MD 11/20/16 04:31 FINAL REPORT Comparisons : Portable AP view of the chest 11/17/2016 Findings : There is moderate diffuse peribronchial thickening throughout the lungs bilaterally. There are moderate bilateral pleural effusions with bilateral lower lobe airspace disease. The heart is enlarged. The mediastinal contours are distorted by patient rotation to the left . There is a left IJ large bore catheter with its tip in the mid SVC. The thoracic spine is age appropriate. The shoulders are unremarkable. Limited evaluation of the upper abdomen demonstrates no gross abnormalities. Impression: 1. Cardiomegaly with moderate pulmonary edema. 2. Increasing bilateral pleural effusions with bilateral lower lobe airspace disease. 3. Stable right IJ large bore catheter. BLOOD BANK RBC product Product available 2 11/18 Result Comment: 2016 16:48 [id number] RESULTS /2016 Called to Hilda Dexter RN at 11/18/2016 16:48 by AWILDA. [facility] (11/18/16 9:23 AM) [facility] BLOOD BANK AB Sendout Anti-K 11/18 RESULTS Int [place] BLOOD BANK ABO/Rh A POS 11/18 RESULTS [place] BLOOD BANK Antibody Scrn Positive 1 11/18 Result Comment: 11/18/2016 07 :30 NIPATEL3 RESULTS /2016 "Significant Findings of POSITIVE ANTIBODY called to CARROLL Villalpando at 11/18/2016 07:29 by TAKE AWAY WORKER. Read Back OK" [place] (11/18/16 6:32 AM) [place] CHEM PANEL Alk Phos 49 unit/L 39 - 136 11/18 [place] CHEM PANEL AST 13 unit/L 0 - 37 11/18 [place] CHEM PANEL Bili Total 0.5 mg/dL 0.2 - 1.3 11/18 [place] CHEM PANEL Albumin Lvl 2.3 g/dL 3.5 - 5.0 11/18 [place] CHEM PANEL ALT 14 unit/L 0 - 65 11/18 [place] CHEM PANEL Total Protein 4.9 g/dL 6.4 - 8.4 11/18 [place] CHEM PANEL B/C Ratio 12 6 - 25 11/18 [place] CHEM PANEL A/G Ratio 0.9 0.7 - 1.6 11/18 [place] CHEM PANEL Globulin 2.6 g/dL 2.7 - 4.2 11/18 [place] CHEM PANEL Phosphorus 2.7 mg/dL 2.5 - 4.5 11/18 [place] CHEM PANEL Magnesium Lvl 2.2 mg/dL 1.8 - 2.4 11/18 [place] PARATHYROID Ca Norm WB 1.14 mMol/L 1.05 - 11/18 MH PROFILE 08.05 [place] PARATHYROID Ca Ion WB 1.11 mMol/L 1.05 - 11/18 MH PROFILE 08.05 [place] HEMATOLOGY Hypochrom 1+ None Seen 11/18 [place] (11/18/16 2:30 AM) [place] HEMATOLOGY Anisocyte 1+ None Seen 11/18 [place] *ABN* [place] (11/18/16 2:30 AM) TOXICOLOGY Vanco Tr TND [id number] 11/18 [place] TOXICOLOGY Vanco Tr 22.9 ug/ml 11/18 [place] BODY FLUIDS RBC BF [id number] 11/17 /mm3 /2016 [place] BODY FLUIDS WBC BF 2100 /mm3 11/17 [place] BODY FLUIDS Eos BF 0 % 11/17 [place] BODY FLUIDS Macrophage BF 5 % 11/17 [place] BODY FLUIDS Lymph BF 11 % 11/17 [place] BODY FLUIDS Segs BF 84 % 11/17 [place] BODY FLUIDS Meso BF Occasional 11/17 [place] (11/17/16 4:05 PM) [place] BODY FLUIDS Supernat BF Colorless Colorless 11/17 [place] (11/17/16 4:05 PM) [place] BODY FLUIDS Clarity BF Slight Cloudy Clear 11/17 [place] (11/17/16 4:05 PM) [place] BODY FLUIDS Color BF Red Colorless 11/17 [place] *ABN* [place] (11/17/16 4:05 PM) BODY FLUIDS CellCnt BF Pleural 11/17 [place] (11/17/16 4:05 PM) [place] BODY FLUIDS Protein BF 1.8 g/dL 11/17 [place] BODY FLUIDS Prot BF Type Pleural 11/17 [place] *NA* [place] (11/17/16 4:05 PM) BODY FLUIDS LDH BF Type Pleural 11/17 [place] *NA* [place] (11/17/16 4:05 PM) BODY FLUIDS LDH BF 115 unit/L 11/17 [place] BODY FLUIDS Gluc BF Type Pleural 11/17 [place] *NA* [place] (11/17/16 4:05 PM) BODY FLUIDS Glucose BF 139 mg/dL 11/17 [place] BODY FLUIDS Lipase BF 372 unit/L 11/17 [place] BODY FLUIDS Lipase BF Pleural 11/17 [place] *NA* [place] (11/17/16 4:05 PM) Thoracentes Thoracentesis PROCEDURE: 11/17 - MH is wo wo catheter - [place] catheter US US Ultrasound-guided thoracentesis. [place] Read by: Basilio Kiran MD Dictated Date/time: 11/23/16 14:57 CLINICAL INFORMATION: Right pleural effusion. Electronically Signed by: Basilio Kiran MD 11/23/16 14:58 FINAL REPORT CONSENT: Prior to the procedure, the procedure, risks, benefits and alternatives were discussed with the patient. Possible risks and complications discussed included bleeding, infection, and pneumothorax. Written informed consent was obtained. SEDATION: Local Sedation only PROCEDURE: Sterile barrier technique was followed including: Cap and mask, sterile gown, sterile gloves, and large sterile sheet. Hand hygiene, and 2% chlorhexidine for cutaneous antisepsis (or acceptable alternative antiseptics, per current guideline). The patient was prepped and draped in the usual sterile fashion. Using ultrasound guidance, a 5 Luxembourgish sheathed needle was placed in the right pleural effusion. Approximately 1950 cc of clear straw-colored fluid was aspirated. The sheath was removed at the end of the procedure. The patient tolerated the procedure well, and there were no immediate complications. IMPRESSION: Ultrasound guided right thoracentesis with aspiration of 1950 cc of fluid. Chest 1view Chest 1view Clinical history: Coughing - rt. side thoracentesis. 11/17 - DX DX /2016 - [place] : 1965. Read by: Morris Schmitt MD Dictated Date/time: 11/17/16 16:44 Electronically Signed by: Morris Schmitt MD 11/17/16 16:45 FINAL REPORT Technique: Portable AP chest x-ray. Comparison: Today at 0117. Status post thoracentesis. Heart size: Heart moderately enlarged with vascular congestion. Lungs: Interval improved right lung aeration. Persistent left lower lobe retrocardiac consolidation. Pleura: Interval fluid drainage thoracentesis. No pneumothorax. Mediastinum and lindsay: Unremarkable. Musculoskeletal: Unremarkable. Support tubings: Left IJ catheter upper SVC. Impression: 1. Right thoracentesis without evidence for pneumothorax. 2. Cardiomegaly. 3. Left lower lobe consolidation CHEM PANEL Albumin Lvl 2.5 g/dL 3.5 - 5.0 11/17 [place] CHEM PANEL B/C Ratio 12 6 - 25 11/17 [place] CHEM PANEL Total Protein 5.4 g/dL 6.4 - 8.4 11/17 [place] CHEM PANEL Alk Phos 53 unit/L 39 - 136 11/17 [place] CHEM PANEL ALT 16 unit/L 0 - 65 11/17 [place] CHEM PANEL Globulin 2.9 g/dL 2.7 - 4.2 11/17 [place] CHEM PANEL A/G Ratio 0.9 0.7 - 1.6 11/17 [place] CHEM PANEL AST 9 unit/L 0 - 37 11/17 [place] CHEM PANEL Bili Total 0.4 mg/dL 0.2 - 1.3 11/17 [place] CHEM PANEL Phosphorus 3.1 mg/dL 2.5 - 4.5 11/17 [place] CHEM PANEL Magnesium Lvl 2.2 mg/dL 1.8 - 2.4 11/17 [place] CHEM PANEL Total Protein 5.4 g/dL 6.4 - 8.4 11/17 [place] CHEM PANEL LDH 311 unit/L 98 - 192 11/17 [place] HEMATOLOGY Plt Morph Normal 11/17 [place] (11/17/16 3:22 AM) [facility] HEMATOLOGY Hypochrom 1+ None Seen 11/17 [facility] (11/17/16 3:22 AM) [facility] PARATHYROID Ca Ion WB 1.10 mMol/L 1.05 - 11/17 PROFILE . [place] PARATHYROID Ca Norm WB 1.10 mMol/L 1. - 11/17 PROFILE . [place] Chest 1view Chest 1view Clinical History : , Abnormal chest sounds - DX - [place] Exam : Portable AP view of the chest 11/17/2016 3:00 AM CDT Read by: Natalie Dinh MD Dictated Date/time: 11/17/16 03:10 Electronically Signed by: Natalie Dinh MD 11/17/16 03:11 FINAL REPORT Comparisons : Portable AP view of the chest 11/16/2016 Findings : There is a left IJ dialysis catheter with its tips in the mid SVC. There is moderate diffuse peribronchial thickening throughout the lungs bilaterally. There are bilateral pleural effusions with bilateral lower lobe airspace disease. The heart is stable in size. The mediastinal contours are normal in appearance. The thoracic spine is age appropriate. The shoulders are unremarkable. Limited evaluation of the upper abdomen demonstrates no gross abnormalities. Impression: 1. Stable pulmonary edema with bilateral pleural effusions and lower lobe airspace disease. 2. Left IJ dialysis catheter. CHEM PANEL Phosphorus 4.1 mg/dL 2.5 - 4.5 11/16 [place] CHEM PANEL Magnesium Lvl 2.3 mg/dL 1.8 - 2.4 11/16 [place] HEMATOLOGY Bands 10.0 % 0.0 - 11.0 11/16 [place] HEMATOLOGY RBC Morph Normal 11/16 [place] (11/16/16 4:03 AM) [facility] HEMATOLOGY Plt Morph Normal 11/16 [place] (11/16/16 4:03 AM) [facility] HEMATOLOGY Target Cell Slight 11/16 [place] HEMATOLOGY Large Plt Slight 11/16 [place] HEMATOLOGY NRBC 1 /100WB 11/16 [place] HEMATOLOGY Tot Cell Ct 100 11/16 [place] HEMATOLOGY Anisocyte 1+ None Seen 11/16 [place] *ABN* [facility] (11/16/16 4:03 AM) PARATHYROID Ca Ion WB 1.06 mMol/L 1. - 11/16 PROFILE 08.05 [place] PARATHYROID Ca Norm WB 1.05 mMol/L 1. - 11/16 PROFILE 08.05 [place] Chest 1view Chest 1view EXAM: 11/16 - DX DX - [place] [id number] view(s) of the chest. [facility] Read by: Jj Pierson MD Dictated Date/time: 11/16/16 03:25 CLINICAL HX: Electronically Signed by: Jj Pierson MD 11/16/16 03:26 FINAL REPORT Abnormal chest sounds. Age: 51 years. Gender: Female. COMPARISON: Chest x-ray: Yesterday. IMPRESSION: 1. Support apparatus: Stable left IJ central line. 2. Stable enlarged cardiac silhouette with pulmonary edema. 3. Stable mild pleural effusions. 4. No pneumothorax. URINE AND UA Sq Epi None Seen 11/15 [place] URINE AND UA Mucus Few /LPF None Seen 11/15 STOOL /LPF /2016 [place] URINE AND UA RBC 21 /HPF 0 - 2 11/15 [place] URINE AND UA WBC 12 /HPF 0 - 5 11/15 [place] URINE AND UA Ketones Trace mg/dL Negative 11/15 STOOL mg/dL [place] URINE AND UA Blood Small Negative 11/15 [place] *ABN* [place] (11/15/16 12:35 PM) URINE AND UA Leuk Est Trace Negative 11/15 [place] *ABN* [facility] (11/15/16 12:35 PM) URINE AND UA Bili Negative Negative 11/15 [place] *NA* [facility] (11/15/16 12:35 PM) URINE AND UA Glucose 150 mg/dL Negative 11/15 STOOL mg/dL [place] URINE AND UA Protein >=300 mg/dL Negative 11/15 STOOL mg/dL /2016 [place] URINE AND UA Spec Grav 1.011 <=1.030 11/15 STOOL [place] URINE AND UA <=1.0 mg/dL 0.1 - 1.0 11/15 STOOL Urobilinogen [place] URINE AND UA Color Yellow Yellow 11/15 STOOL [place] *NA* [place] (11/15/16 12:35 PM) URINE AND UA Nitrite Negative Negative 11/15 STOOL [place] (11/15/16 12:35 PM) [place] URINE AND UA pH 5.0 5.0 - 8.0 11/15 STOOL [place] URINE AND UA Turbidity Slight Clear 11/15 STOOL [place] *ABN* [place] (11/15/16 12:35 PM) TOXICOLOGY Vanco Tr TND [id number] 11/15 [place] TOXICOLOGY Vanco Tr 10.4 ug/ml 11/15 [place] Chest 1view Chest 1view EXAM: 11/15 - DX DX - [facility] 1 view(s) of the chest. [facility] Read by: Jj Pierson MD Dictated Date/time: 11/15/16 03:39 CLINICAL HX: Electronically Signed by: Jj Pierson MD 11/15/16 03:39 FINAL REPORT Shortness of Breath. . . COMPARISON: Chest x-ray: 11/13/2016. IMPRESSION: 1. Support apparatus: Stable left IJ central line. 2. Stable enlarged cardiac silhouette with marked pulmonary edema and pleural effusions. 3. No pneumothorax. Retroperito Retroperitone CLINICAL HISTORY: Abdominal distension 11/14 - sera al limited w - [place] limited w Doppler US AGE: 51 years [facility] Doppler US GENDER: Female Read by: Chico Tipton MD Dictated Date/time: 11/14/16 15:16 Electronically Signed by: Chico Tipton MD 11/14/16 15:20 FINAL REPORT TECHNIQUE: Grayscale and limited doppler images of the kidneys were performed and customer account representative images were submitted for evaluation. COMPARISON: None available FINDINGS: Right kidney: The echogenicity is normal. The kidney measures 10.4 x 5.8 x 4.5 cm with a cortical thickness of 1.2 cm. There is no hydronephrosis or large shadowing calculus. Left Kidney: Suboptimal visualized. The left kidney measures approximately 8.7 x 5.2 x 4.2 cm. The cortical thickness is approximately 1.4 cm. Vascular: Visualized portions of the IVC are patent. There is no obvious aneurysmal dilatation of the aorta. The origins of the common iliac arteries are not seen sonographically. Peak systolic velocity of the abdominal aorta is 145 cm/s. Peak systolic velocity of the main right renal artery is 136 cm/s. This correlates to a main renal artery to aorta ratio of 0.9. Resistive index of the right kidney is 0.7. Patent right renal vein. Suboptimal evaluation of the left renal vasculature. IMPRESSION: No evidence of hydronephrosis. No sonographic evidence of right renal artery stenosis. Suboptimal evaluation of the left renal vasculature. Chest 1view Chest 1view EXAM: 11/14 - DX DX - [place] 1 view(s) of the chest. [place] Read by: Jj Pierson MD Dictated Date/time: 11/14/16 03:14 CLINICAL HX: Electronically Signed by: Jj Pierson MD 11/14/16 03:16 FINAL REPORT Shortness of Breath. . . COMPARISON: Chest x-ray: Earlier today. IMPRESSION: 1. Support apparatus: Stable left IJ central line. 2. Stable enlarged cardiac silhouette with pulmonary edema. 3. Stable mild pleural effusions. 4. No pneumothorax. IMMUNOLOGY Hep Bs Ag Negative Negative 11/14 [place] *NA* [place] (11/13/16 7:00 PM) BODY FLUIDS LDH BF Type Pleural 11/13 [place] *NA* [place] (11/13/16 3:12 PM) BODY FLUIDS LDH BF 102 unit/L 11/13 [place] BODY FLUIDS Prot BF Type Pleural 11/13 [place] *NA* [place] (11/13/16 3:12 PM) BODY FLUIDS Protein BF 1.8 g/dL 11/13 [place] BODY FLUIDS Gluc BF Type Pleural 11/13 [place] *NA* [place] (11/13/16 3:12 PM) BODY FLUIDS Glucose BF 82 mg/dL 11/13 [place] BODY FLUIDS Meso BF Occasional 11/13 [place] (11/13/16 3:12 PM) [place] BODY FLUIDS Eos BF 0 % 11/13 [place] BODY FLUIDS Lymph BF 24 % 11/13 [place] BODY FLUIDS Segs BF 65 % 11/13 [place] BODY FLUIDS Macrophage BF 11 % 11/13 [place] BODY FLUIDS Clarity BF Slight Cloudy Clear 11/13 [place] (11/13/16 3:12 PM) [place] BODY FLUIDS Color BF Red Colorless 11/13 [place] *ABN* [place] (11/13/16 3:12 PM) BODY FLUIDS WBC BF 1950 /mm3 11/13 [place] BODY FLUIDS Supernat BF Colorless Colorless 11/13 [place] (11/13/16 3:12 PM) [place] [address] /mm3 11/13 [place] BODY FLUIDS CellCnt BF Pleural 11/13 [place] (11/13/16 3:12 PM) [place] Chest wo Chest wo CLINICAL HISTORY: Pleural effusion. 11/13 - contrast CT contrast CT - [place] Sex: Female. [place] : 1965. Read by: Morris Schmitt MD Dictated Date/time: 11/13/16 17:51 Electronically Signed by: Morris Schmitt MD 11/13/16 17:54 FINAL REPORT TECHNIQUE: Axial scans of the chest of the chest was performed including computer reformations. Total Dose Length Product: 732."This exam was performed using radiation doses that are As Low As Reasonably Achievable (ALARA)." Comparison studies: Chest x-ray today at 1506 status post right thoracentesis today at 1449. Heart size: Enlarged. Pericardial effusion small pericardial fluid up to about 9 mm thick. Lungs: Bibasilar atelectasis or infiltrate. Pleura: Moderate right, small left pleural effusions. No pneumothorax. Mediastinum: No mass. Lindsay: No mass. Musculoskeletal: Substantial subcutaneous edema becomes more pronounced over the upper abdomen. Upper abdomen: Fatty liver and ascites. IMPRESSION: 1. Bibasilar infiltrate/atelectasis. 2. Pleural effusions without pneumothorax. 3. Enlarged liver and ascites. 4. Anasarca. Chest 1view Chest 1view PORTABLE CHEST AP SEMIERECT 11/13/2016, 3:06 PM - DX DX - [place] HISTORY: Post right thoracentesis. Read by: Madhu Ricketts MD Dictated Date/time: 11/13/16 16:44 Electronically Signed by: Madhu Ricketts MD 11/13/16 16:47 FINAL REPORT Cardiomegaly unchanged. Improvement in pulmonary vascular congestion. Left and right basilar consolidation. Right pleural effusion noted, decreased in size compared to prior exam. Left IJ dialysis georgina ter, unchanged in position. No evidence of pneumothorax following right thoracentesis. IMPRESSION: No evidence of right pneumothorax following right thoracentesis. Decrease in size of right pleural effusion compared to prior exam is not related to right thoracentesis since only a small amount of flui d was aspirated from several different puncture sites suggesting possible fluid loculation. CARDIAC Troponin-I null 0.00 - 05 ENZYMES 0.40 [facility] IMMUNOLOGY NII Titer 1:40 Negative 11/13 [place] *ABN* [place] (11/13/16 11:05 AM) IMMUNOLOGY NII Interp Pattern 11/13 [facility] Speckled, [place] Chromosome Positive IMMUNOLOGY C-ANCA Negative Negative 11/13 [facility] (11/13/16 11:05 AM) [place] IMMUNOLOGY P-ANCA Positive Negative 11/13 [facility] *ABN* [place] (11/13/16 11:05 AM) IMMUNOLOGY NII Positive Negative 11/13 [facility] *ABN* [place] (11/13/16 11:05 AM) IMMUNOLOGY P-ANCA Ttr 1:160 Negative 11/13 [facility] *ABN* [place] (11/13/16 11:05 AM) IMMUNOLOGY RF Qnt null 0 - 20 11/13 [facility] SPECIAL CHICHI 26 unit/L 8 - 52 11/13 CHEMISTRY [facility] Thoracentes Thoracentesis ULTRASOUND GUIDED RIGHT THORACENTESIS, 11/13/201611/13 - is wo wo catheter /2016 - [facility] catheter US US [place] HISTORY: Right pleural effusion Read by: Madhu Ricketts MD Dictated Date/time: 11/13/16 16:13 Electronically Signed by: Madhu Ricketts MD 11/13/16 16:16 FINAL REPORT After obtaining informed consent, the right pleural effusion was localized with ultrasound. The skin was cleansed and anesthetized with 5 cc of 1% Lidocaine. A Magine catheter was used to access the flu id. Several different sites were punctured with only 3-4 6 mL of fluid removed at time. 15 -20 mL of mildly cloudy fluid were aspirated. Specimens were sent to lab as requested. The patient tolerated the procedure well with no immediate complications. Images were recorded before, during and following the procedure. IMPRESSION: 15-20 mL of fluid were obtained despite attempts at several different puncture sites raising the possibility of loculated right pleural effusion. URINE AND UA Mucus Few /LPF None Seen 11/13 STOOL /LPF [facility] URINE AND UA Amorph Occasional None Seen 11/13 STOOL Lety /HPF /HPF /2016 [facility] URINE AND UA Spec Grav 1.015 <=1.030 11/13 STOOL [facility] URINE AND UA <=1.0 mg/dL 0.1 - 1.0 11/13 STOOL Urobilinogen /2016 [facility] URINE AND UA Sq Epi Occasional Few /LPF 11/13 STOOL /LPF [facility] URINE AND UA Leuk Est Trace Negative 11/13 [facility] *ABN* [place] (11/13/16 10:51 AM) URINE AND UA WBC 30 /HPF 0 - 5 11/13 [facility] URINE AND UA RBC null 0 - 2 11/13 [facility] URINE AND UA Bacteria Occasional None Seen 11/13 STOOL /HPF /HPF /2016 [facility] URINE AND UA Blood Large Negative 11/13 [facility] *ABN* [place] (11/13/16 10:51 AM) URINE AND UA Nitrite Negative Negative 11/13 [facility] (11/13/16 10:51 AM) [place] URINE AND UA Color Dark Yellow Yellow 11/13 [facility] *NA* [place] (11/13/16 10:51 AM) URINE AND UA Turbidity Marked Clear 11/13 [facility] *ABN* [place] (11/13/16 10:51 AM) URINE AND UA pH 5.0 5.0 - 8.0 11/13 [facility] URINE AND UA Protein >=300 mg/dL Negative 11/13 STOOL mg/dL [facility] URINE AND UA Glucose 50 mg/dL Negative 11/13 STOOL mg/dL [facility] URINE AND UA Bili Negative Negative 11/13 [place] *NA* [place] (11/13/16 10:51 AM) URINE AND UA Ketones Negative Negative 11/13 STOOL mg/dL mg/dL /2016 [facility] URINE CHEM U Prot/Creat 12.7 11/13 [facility] URINE CHEM U Protein 1060.5 11/13 mg/dL /2016 [facility] URINE CHEM U Creatinine 83.40 mg/dL 11/13 [facility] Chest 1 v Chest 1 v for Chest x-ray 1 view 11/13 - for Placement DX /2017 - [facility] Placement Comparison:None [place] DX Findings: Patient is rotated to the left. Interval placement of left internal jugular central venous catheter with the tip overlying the mid SVC. There is moderate cardiomegaly. There is a moderate righ Read by: Elliott Hart MD t pleural effusion with complete consolidation of the right lung causing silhouetting of the right heart border and diaphragm. Additional possible small left pleural effusion with silhouetting the left Dictated Date/time: 11/25 13:52 hemidiaphragm and portions of the left heart border. No evidence of pneumothorax on portable exam. No acute osseus pathology. Electronically Signed by: Elliott Hart MD 11/13/16 13:54 FINAL REPORT Impression: Central venous catheter in place. Suspected alveolar pulmonary edema with moderate right greater than left pleural effusions. Multifocal pneumonia cannot be excluded. HEMATOLOGY PT 16.6 s 12.0 - 11/13 MH 14.7 [facility] HEMATOLOGY INR 1.32 0.85 - 11/13 1. [facility] CARDIAC BNP 747 pg/mL <=100 11/13 ENZYMES pg/mL /2016 [facility] CARDIAC Troponin-I null 0.00 - 11/13 ENZYMES 0.40 [facility] CHEM PANEL Bili Direct 0.1 mg/dL 0.0 - 0.3 11/13 [facility] CHEM PANEL Uric Acid 6.2 mg/dL 2.5 - 7.0 11/13 [facility] CHEM PANEL Lactic Acid 0.5 mMol/L 0.5 - 2.2 11/13 Lvl /2016 [facility] HEMATOLOGY RBC Morph Normal 11/13 [facility] (11/12/16 11:42 PM) [facility] HEMATOLOGY Plt Morph Normal 11/13 [facility] (11/12/16 11:42 PM) [facility] HEMATOLOGY Bands 9.0 % 0.0 - 11.0 11/13 [facility] HEMATOLOGY Metamyelocyte 2.0 % 0.0 - 1.0 11/13 s /2016 [facility] HEMATOLOGY Large Plt Slight 11/13 [facility] HEMATOLOGY Tot Cell Ct 100 11/13 [facility] HEMATOLOGY INR 1.25 0.85 - 11/13 1. [facility] HEMATOLOGY PT 16.0 s 12.0 - 11/13 MH 14.7 [facility] LIPIDS VLDL 10 11/13 [facility] LIPIDS Chol 114 mg/dL <=199 11/13 mg/dL [facility] LIPIDS Trig 52 mg/dL <=149 11/13 mg/dL [facility] LIPIDS HDL 41 mg/dL >=61 mg/dL 11/13 [facility] LIPIDS LDL 63 mg/dL <=99 mg/dL 11/13 (Calculated) [facility] LIPIDS CHD Risk 2.78 3.90 - 11/13 5.80 [facility] SPECIAL Hgb A1C 4.7 % <=5.6 % 11/13 CHEMISTRY [facility] Ext Lower Ext Lower EXAM: 11/12 - Venous Venous - [place] Doppler Doppler Bilat Bilateral lower extremity venous doppler. [facility] Bilat US US Read by: Jj Pierson MD Dictated Date/time: 11/13/16 00:49 CLINICAL HX: Electronically Signed by: Jj Pierson MD 11/13/16 00:49 FINAL REPORT Limb pain, bilateral lower. TECHNIQUE: The bilateral lower extremity deep venous system was evaluated with grayscale and Doppler ultrasound. Note: DVT=deep vein thrombosis. FINDINGS: Acute DVT: Negative. Markedly limited evaluation due to patient's body habitus, per technologist notes. Other: Bilateral lower extremity subcutaneous edema. IMPRESSION: 1. No evidence of acute DVT. Chest 1view Chest 1view EXAM: 11/12 - DX DX - [facility] 1 view(s) of the chest. [facility] Read by: Jj Pierson MD Dictated Date/time: 11/12/16 22:12 CLINICAL HX: Electronically Signed by: Jj Pierson MD 11/12/16 22:14 FINAL REPORT Shortness of Breath. . . COMPARISON: Chest x-ray: None. FINDINGS: Support apparatus: None. Cardiac silhouette: Borderline enlarged. Mediastinum: -- Lindsay: Unremarkable. -- Other: None. Lungs: -- Consolidation: Bilateral perihilar pulmonary edema type infiltrates. -- Pleural effusion: Right greater than left pleural effusions. -- Pneumothorax: Negative. -- Other: 2.4 x 1.9 cm left basilar pulmonary cyst. Bones: Unremarkable. Other: Mildly limited by leftward rotation of the chest. IMPRESSION: 1. Borderline enlarged cardiac silhouette with pulmonary edema/volume overload. Vital Signs Vital Sign Value Date Comments Source BMI Calculated 48.46 11/04/2018 [facility] Weight 124.091 11/04/2018 [facility] Height 160.02 cm 11/04/2018 [facility] Systolic (mm Hg) 183 11/04/2018 [facility] Diastolic (mm Hg) 92 11/04/2018 [facility] Heart Rate 98 11/04/2018 [facility] BMI Calculated 39.44 01/14/2018 [facility] Height 160.02 cm 01/14/2018 [facility] Weight 101 01/14/2018 [facility] Heart Rate 78 01/14/2018 [facility] Systolic (mm Hg) 135 01/14/2018 [facility] Diastolic (mm Hg) 71 01/14/2018 [facility] Weight 103.636 11/25/2017 [facility] BMI Calculated 40.47 11/25/2017 [facility] Height 160.02 cm 11/25/2017 [facility] Temperature Oral (F) 98.2 F 11/25/2017 [facility] Systolic (mm Hg) 199 11/25/2017 [facility] Diastolic (mm Hg) 87 11/25/2017 [facility] Heart Rate 87 11/25/2017 [facility] Temperature Oral (F) 97.6 F 12/03/2016 [facility] Systolic (mm Hg) 160 12/03/2016 [facility] Diastolic (mm Hg) 71 12/03/2016 [facility] Heart Rate 85 12/03/2016 [facility] Respitory Rate 17 12/03/2016 [facility] Systolic (mm Hg) 187 12/03/2016 [facility] Diastolic (mm Hg) 76 12/03/2016 [facility] Respitory Rate 17 12/03/2016 [facility] Heart Rate 86 12/03/2016 [facility] Temperature Oral (F) 97.4 F 12/03/2016 [facility] Temperature Oral (F) 98.5 F 12/03/2016 [facility] Heart Rate 92 12/03/2016 [facility] Respitory Rate 18 12/03/2016 [facility] Systolic (mm Hg) 188 12/03/2016 [facility] Diastolic (mm Hg) 77 12/03/2016 [facility] Weight 121.364 11/26/2016 [facility] Height 160.02 cm 11/26/2016 [facility] BMI Calculated 47.4 11/26/2016 [facility] Weight 135 11/26/2016 [facility] Systolic (mm Hg) 151 11/25/2016 [facility] Diastolic (mm Hg) 59 11/25/2016 [facility] Heart Rate 82 11/25/2016 [facility] Respitory Rate 18 11/25/2016 [facility] Temperature Oral (F) 97.6 F 11/25/2016 [facility] Systolic (mm Hg) 151 11/25/2016 [facility] Diastolic (mm Hg) 59 11/25/2016 [facility] Systolic (mm Hg) 158 11/25/2016 [facility] Diastolic (mm Hg) 63 11/25/2016 [facility] Respitory Rate 18 11/25/2016 [facility] Heart Rate 78 11/25/2016 [facility] Temperature Oral (F) 98.3 F 11/25/2016 [facility] Temperature Oral (F) 98.3 F 11/25/2016 [facility] Heart Rate 75 11/25/2016 [facility] Respitory Rate 16 11/25/2016 [facility] Weight 149.003 11/15/2016 [facility] Height 160.02 cm 11/13/2016 [facility] Weight 153.273 11/13/2016 [facility] BMI Calculated 59.86 11/13/2016 [facility] Encounters Location Location Encounter Encounter Reason Attending ADM DC Status Source Details Type Number For Provider Date Date Visit Outpatient [id number] [facility] [id number] [facility] [id number] [place] 11/13 11/25 [place] [facility] [id number] Danny 11/26 12/03 [place] [facility] [place] [facility] [id number] Sasrutha 11/25 11/26 [facility] 6 [facility] [id number] [facility]F 12/09 [facility] [place] [facility] Ambulatory [id number] Manaf 12/09 12/09 Nephrology Pre-Reg 2 [facility] Outpatient [id number] Sasrutha 01/14 01/15 [facility] 7 [facility] Outpatient [id number] MANAF 03/10 [facility] [place] [facility] Outpatient [id number] Manaf 03/10 03/11 Nephrology 3 [facility] Outpatient [id number] Sasrutha 11/04 11/05 [facility] 9 Medical Cardiology [facility] Procedures Procedure Code Date Perfomer Comments Source Appendectomy [id number] [facility] Hysterectomy [id number] [facility] Tonsillectomy [id number] [facility] Appendectomy [id number] [facility] Hysterectomy [id number] [facility] Tonsillectomy [id number] [facility] Appendectomy [id number] [facility] Hysterectomy [id number] [facility] Tonsillectomy [id number] [facility]
--- OUTSIDE RECORDS SUMMARY | 2018-11-11 20:16 | XMS REPORT | Summary of Care ---
:1965 Author Organization [facility] Address [address], [place] [address]- Encounter HQ Alntr_kelvin(FIN) [id number] Date(s): 11/12/16 - 11/25/16 [facility] [address] [place] [address]- Discharge Disposition: Retirement Facility Attending Physician: Asael Hill MD Admitting Physician: Asael Hill MD Vital Signs Most recent to oldest 1 2 3 [Reference Range]: Height 160.02 cm (11/12/16 7:56 PM) Current Weight 130.005 kg 130 kg 132.9 kg (11/25/16 5:00 AM) (11/24/16 6:00 AM) (11/23/16 6:09 AM) Temperature Oral [96.4-99.1 97.6 DegF 98.3 DegF 98.3 DegF DegF] (11/25/16 12:00 PM) (11/25/16 7:53 AM) (11/25/16 4:02 AM) Blood Pressure [90-140/60-90 151/59 mmHg 151/59 mmHg 158/63 mmHg mmHg] *HI* *HI* *HI* (11/25/16 12:00 PM) (11/25/16 10:30 AM) (11/25/16 7:53 AM) Respiratory Rate [14-20 18 BRMIN 18 BRMIN 16 BRMIN BRMIN] (11/25/16 12:00 PM) (11/25/16 7:53 AM) (11/25/16 4:02 AM) Peripheral Pulse Rate [60-100 82 bpm 78 bpm 75 bpm bpm] (11/25/16 12:00 PM) (11/25/16 7:53 AM) (11/25/16 4:02 AM) Weight 149.003 kg 153.273 kg (11/15/16 6:09 AM) (11/12/16 7:56 PM) Body Mass Index 59.86 m2 (11/12/16 7:56 PM) Problem List Condition Effective Dates Status Health Status Informant Diabetes(Confirmed) Active Diabetes mellitus(Confirmed) Active Gout(Confirmed) Active Heart valve disease(Confirmed) Active HTN (hypertension)(Confirmed) Active HTN (hypertension)(Confirmed) Active Hypothyroid(Confirmed) Active Morbid obesity(Confirmed) Active Pleural effusion(Confirmed) Active Vitamin D deficiency(Confirmed) Active Allergies, Adverse Reactions, Alerts Substance Reaction Severity Status glimepiride Dizziness Active metFORMIN Muscle pain Active valsartan Irregular heart beat Active Rash Swelling Victoza Irregular heart beat Active Fainting Medications acetaminophen 650 mg, 2 tab, Route: PO, Drug form: TAB, Q4H, Dosing Weight 153.273, kg, PRN For Temp > 100.4 F, Start date: 11/12/16 20:29:00 CDT, Duration: 30 day, Stop date: 12/12/16 20:28:00 CDT Notes: Do not exceed 4 gm/day. (Same as: Tylenol) Start Date: 11/12/16 Stop Date: 11/25/16 Status: Discontinuedacetylcysteine 20% inhalation solution 400 mg, 2 mL, Route: NEB, Drug Form: SOLN, Dosing Weight 149.003, kg, RQ6H, Start date: 11/19/16 12:00:00 CDT, Duration: 30 day, Stop date: 12/19/16 8:00: 00 CDT Start Date: 11/19/16 Stop Date: 11/25/16 Status: Discontinuedalbumin human 25% intravenous solution 12.5 gm, 50 mL, Route: IVPB, Drug form: INJ, ONCALL, Dosing Weight 153.273, kg, PRN Dialysis, Start date: 11/14/16 11:25:00 CDT, Duration: 1 doses or times, Stop date: Limited # of times, (Give up to two doses prn each dialysis) Notes: LOT#: Mfg: WASTE: F/P - Red; E -Red (Same as: Albuminar)"blood product derivative" Start Date: 11/14/16 Stop Date: 11/25/16 Status: Discontinuedalbuterol-ipratropium 2.5-0.5 mg inhalation solution 3 ml, Route: NEB, Drug Form: SOLN, Dosing Weight 153.273, kg, RQ6H, Start date: 11/13/16 8:00:00 CDT, Duration: 30 day, Stop date: 12/13/16 2:00:00 CDT Notes: (Same as: Duoneb) Start Date: 11/13/16 Stop Date: 11/25/16 Status: Discontinuedalbuterol-ipratropium 2.5-0.5 mg inhalation solution 3 ml, Route: NEB, Drug Form: SOLN, Dosing Weight 153.273, kg, PRN, PRN Respiratory Protocol, Start date: 11/12/16 20:29:00 CDT, Duration: 30 day, Stop date: 12/12/16 20:28:00 CDT Notes: (Same as: Duoneb) Start Date: 11/12/16 Stop Date: 11/25/16 Status: DiscontinuedAldactone 25 mg, 1 tab, Route: PO, Drug form: TAB, BID, Dosing Weight 153.273, kg, Start date: 11/19/16 17:00:00 CDT, Duration: 30 day, Stop date: 12/19/16 5:00:00 CDT Notes: (Same As: Aldactone) Start Date: 11/19/16 Stop Date: 11/25/16 Status: DiscontinuedAldactone 25 mg, 1 tab, Route: PO, Drug form: TAB, Daily, Dosing Weight 153.273, kg, Start date: 11/16/16 9:00:00 CDT, Duration: 30 day, Stop date: 12/15/16 9:00:00 CDT Notes: (Same As: Aldactone) Start Date: 11/16/16 Stop Date: 11/19/16 Status: DiscontinuedAldactone 25 mg, 1 tab, Route: PO, Drug form: TAB, BID, Dosing Weight 153.273, kg, Start date: 11/13/16 9:00:00 CDT, Duration: 30 day, Stop date: 12/12/16 21:00:00 CDT Notes: (Same As: Aldactone) Start Date: 11/13/16 Stop Date: 11/15/16 Status: Discontinuedallopurinol 100 mg, Route: PO, Drug form: TAB, BID, Dosing Weight 153.273, kg, Start date: 11/13/16 9:00:00 CDT,Duration: 30 day, Stop date: 12/12/16 17:00:00 CDT Start Date: 11/13/16 Stop Date: 11/12/16 Status: CanceledAmbien 5 mg, 1 tab, Route: PO, Drug form: TAB, Bedtime, Dosing Weight 149.003, kg, PRN as needed for sleep,Start date: 11/24/16 19:25:00 CDT, Duration: 30 day, Stop date: 12/24/16 19:24:00 CDT Notes: (Same As: Ambien) Start Date: 11/24/16 Stop Date: 11/25/16 Status: Discontinuedatenolol 25 mg oral tablet 25 mg, 1 tab, Route: PO, Drug form: TAB, Daily, Dosing Weight 149.003, kg, Start date: 11/21/16 9:00:00 CDT, Duration: 30 day, Stop date: 12/20/16 9:00:00 CDT Notes: (Same As:Tenormin) Start Date: 11/21/16 Stop Date: 11/21/16 Status: Discontinuedbisacodyl 10 mg, 1 supp, Route: OH, Drug form: SUPP, Daily, Dosing Weight 153.273, kg, PRN Other -See Comment,Start date: 11/12/16 20:29:00 CDT, Duration: 30 day, Stop date: 12/12/16 20:28:00 CDT Notes: (Same As: Dulcolax, Bisco-Lax) Start Date: 11/12/16 Stop Date: 11/25/16 Status: Discontinuedbisacodyl 10 mg rectal suppository 10 mg=1 supp, OH, Daily, PRN Other -See Comment, 0 Refill(s) Start Date: 11/25/16 Stop Date: 11/27/16 Status: Discontinuedbumetanide 1 mg oral tablet 2 mg=2 tab, PO, TID, # 84 tab, 0 Refill(s), Pharmacy: [facility]/pharmacy #[id number] Start Date: 11/25/16 Stop Date: 11/27/16 Status: CompletedBumex 2 mg, 2 tab, Route: PO, Drug form: TAB, TID, Dosing Weight 149.003, kg, Start date: 11/24/16 13:00:00 CDT, Duration: 30 day, Stop date: 12/24/16 9:00:00 CDT Notes: (Same As: Bumex) Start Date: 11/24/16 Stop Date: 11/25/16 Status: DiscontinuedBumex 2 mg, 8 mL, Route: IVP, Drug form: INJ, Q8H, Dosing Weight 153.273, kg, Start date: 11/13/16 9:00:00CDT, Stop date: 12/12/16 21:30:00 CDT Notes: (Same As: Bumex) Start Date: 11/13/16 Stop Date: 11/24/16 Status: Discontinuedcalcium carbonate 500 mg, 1 tab, Route: CHEW, Drug form: CHEWTAB, ONCE, Dosing Weight 149.003, kg , Start date: 11/17/16 21:46:00 CDT, Stop date: 11/17/16 21:46:00 CDT Notes: (Same As: Tums)Calcium Carbonate 500 gq=324 mg elemental calcium Dose=_ mg calcium carbonate ( mg elemental calcium) Start Date: 11/17/16 Stop Date: 11/17/16 Status: Completedcalcium carbonate 500 mg (200 mg elemental calcium) oral tablet 500 mg, 1 tab, Route: PO, Drug form: CHEWTAB, PRN, Dosing Weight 153.273, kg, PRN Abnormal Lab Result, FOR ICU USE ONLY, Start date: 11/12/16 20:29:00 CDT, Duration: 30 day, Stop date: 12/12/16 20:28:00 CDT Notes: (Same As: Tums)Calcium Carbonate 500 vt=161 mg elemental calcium Dose=_ mg calcium carbonate ( mg elemental calcium) Start Date: 11/12/16 Stop Date: 11/18/16 Status: Discontinuedcalcium carbonate 500 mg (200 mg elemental calcium) oral tablet 1,000 mg, 2 tab, Route: PO, Drug form: CHEWTAB, PRN, Dosing Weight 153.273, kg, PRN Abnormal Lab Result, FOR ICU USE ONLY, Start date: 11/12/16 20:29:00 CDT, Duration: 30 day, Stop date: 12/12/16 20:28:00 CDT Notes: (Same As: Tums)Calcium Carbonate 500 dg=896 mg elemental calcium Dose=_ mg calcium carbonate ( mg elemental calcium) Start Date: 11/12/16 Stop Date: 11/18/16 Status: Discontinuedcalcium gluconate + sodium chloride 0.9% INJ 100 mL 2,000 mg, 20 mL, Route: IVPB, ONCE, Dosing Weight 153.273, kg, Start date: 11/15 3:53:00 CDT, Stop date: 11/15/16 3:53:00 CDT Notes: WASTE: F/P - Sink; E - Municipal Trash Bin Start Date: 11/15/16 Stop Date: 11/15/16 Status: Completedcalcium gluconate + sodium chloride 0.9% INJ 50 mL 1 gm, 10 mL, Route: IVPB, PRN, Dosing Weight 153.273, kg, PRN Abnormal Lab Result, Start date: 11/12/16 20:29:00 CDT, Duration: 30 day, Stop date: 20:28:00 CDT, FOR ICU USE ONLY Notes: WASTE: F/P - Sink; E - Municipal Trash Bin Start Date: 11/12/16 Stop Date: 11/18/16 Status: Discontinuedcefepime 2 gm, Route: IVPB, [id number], Dosing Weight 149.003, kg, (CrCl 30 - 49 ml/min, IV THERAPY NURSE infection or neutropenic fever), Start date: 11/21/16 19:00:00 CDT, Duration : 30 day, Stop date: 12/21/16 7:00:00 CDT Start Date: 11/21/16 Stop Date: 11/21/16 Status: Canceledceftaroline + sodium chloride 0.9% INJ 100 mL 300 mg, Route: IVPB, Q12H, Dosing Weight 149.003, kg, Start date: 11/21/16 21:00 :00 CDT, Duration: 30 day, Stop date: 12/21/16 9:00:00 CDT, For CrCL 15 - 30 ml/ min Notes: Reserved for use by ID Physicians in refractory MRSA skin and skin structure infections or intolerance to vancomycin, daptomycin or linezolid.Non- Formulary Drug MEDICATION WASTE Product Size: 600 mgProduct Wasted: 0 mg (prepare 2 doses from 1 x 600 mg vial) Start Date: 11/21/16 Stop Date: 11/23/16 Status: DiscontinuedcloNIDine 0.2 mg oral tablet 0.2 mg, 1 tab, Route: PO, Drug form: TAB, TID, Dosing Weight 149.003, kg, PRN Hypertension, Start date: 11/21/16 11:12:00 CDT, Duration: 30 day, Stop date: 11:11:00 CDT Notes: (Same As: Catapres) Start Date: 11/21/16 Stop Date: 11/25/16 Status: DiscontinuedcloNIDine 0.2 mg oral tablet 0.2 mg, Route: PO, Q6H, Dosing Weight 149.003, kg, PRN Hypertension, Priority: NOW, Start date: 11/21/16 10:56:00 CDT, Duration: 30 day, Stop date: 12/21/16 10 :55:00 CDT Start Date: 11/21/16 Stop Date: 11/21/16 Status: DiscontinuedcloNIDine 0.2 mg oral tablet 0.2 mg=1 tab, PO, TID, PRN Hypertension, 0 Refill(s) Start Date: 11/25/16 Stop Date: 11/27/16 Status: [id number] syringe 25 gm, 50 mL, Route: INJ, Drug Form: INJ, Dosing Weight 153.273, kg, ONCE, Start date: 11/13/16 4:53:00 CDT, Stop date: 11/13/16 4:53:00 CDT Start Date: 11/13/16 Stop Date: 11/13/16 Status: [id number] 1,000 mL 1,000 mL, Rate: 40 ml/hr, Infuse over: 25 hr, Route: IV, Dosing Weight 153.273 kg, Total Volume: 1,000, Start date: 11/13/16 4:52:00 CDT, Duration: 30 day, Stop date: 12/13/16 4:51:00 CDT Start Date: 11/13/16 Stop Date: 11/13/16 Status: DiscontinuedDextrose 50% Syringe 12.5 gm, 25 mL, Route: IVP, Drug Form: INJ, Dosing Weight 153.273, kg, ONCE, NOW , Start date: 11/13/16 2:30:00 CDT, Stop date: 11/13/16 2:30:00 CDT Start Date: 11/13/16 Stop Date: 11/13/16 Status: CompletedDextrose 50% Syringe 25 gm, 50 mL, Route: IVP, Drug Form: INJ, Dosing Weight 153.273, kg, PRN, PRN Blood Glucose Results,Start date: 11/13/16 11:25:00 CDT, Duration: 30 day, Stop date: 12/13/16 11:24:00 CDT Start Date: 11/13/16 Stop Date: 11/25/16 Status: DiscontinuedDextrose 50% Syringe 12.5 gm, 25 mL, Route: IVP, Drug Form: INJ, Dosing Weight 153.273, kg, PRN, PRN Blood Glucose Results, Start date: 11/13/16 11:25:00 CDT, Duration: 30 day, Stop date: 12/13/16 11:24:00 CDT Start Date: 11/13/16 Stop Date: 11/25/16 Status: Discontinueddocusate-senna 50 mg-8.6 mg oral tablet 1 tab, Route: PO, Drug Form: TAB, Dosing Weight 149.003, kg, BID, Start date: 9:00:00 CDT, Duration: 30 day, Stop date: 12/17/16 17:00:00 CDT Notes: (Same as Senokot-S) Equiv. to Marisela-Colace. Start Date: 11/18/16 Stop Date: 11/25/16 Status: Discontinueddocusate-senna 50 mg-8.6 mg oral tablet 1 tab, PO, BID, 0 Refill(s) Start Date: 11/25/16 Stop Date: 11/27/16 Status: CompletedDurezol 0.05% ophthalmic emulsion 1 drp, BOTH EYES, Daily, After 14 days, taper dose as directed by physician., # 5 mL, 0 Refill(s) Start Date: 11/15/16 Stop Date: 11/25/16 Status: Discontinuedfurosemide 20 mg, 2 mL, Route: IVP, Drug form: INJ, ONCALL, Dosing Weight 149.003, kg, Administer after first unit of Blood., Priority: Routine, Start date: 11/18/16 10:00:00 CDT, Duration: 30 day, Stop date: 12/18/16 9:59:00 CDT Notes: (Same as: Lasix) Start Date: 11/18/16 Stop Date: 11/25/16 Status: Discontinuedglucagon 1 mg, Route: IM, Drug form: PDR/INJ, PRN, Dosing Weight 153.273, kg, PRN Blood Glucose Results, Start date: 11/13/16 11:25:00 CDT, Duration: 30 day, Stop date : 12/13/16 11:24:00 CDT Start Date: 11/13/16 Stop Date: 11/25/16 Status: Discontinuedheparin 3,000 unit, 3 mL, Route: DIALYSIS, Drug form: INJ, ONCALL, Start date: 11/14/16 23:30:00 CDT, Duration: 1 doses or times Start Date: 11/14/16 Stop Date: 11/25/16 Status: Discontinuedheparin 1,000 unit, 1 mL, Route: IV Lock, Drug form: INJ, PRN, Dosing Weight 149.003, kg , PRN Dialysis, Start date: 11/16/16 13:35:00 CDT, Duration: 1 day, Stop date: 11/17/16 13:34:00 CDT Start Date: 11/16/16 Stop Date: 11/17/16 Status: Completedheparin 1,000 unit, 1 mL, Route: IV Lock, Drug form: INJ, PRN, Dosing Weight 149.003, kg , PRN Dialysis, Start date: 11/18/16 18:17:00 CDT, Duration: 1 day, Stop date: 11/19/16 18:16:00 CDT Start Date: 11/18/16 Stop Date: 11/19/16 Status: Completedheparin 5,000 unit, 1 mL, Route: SUB-Q, Drug form: INJ, Q8H, Dosing Weight 153.273, kg, Start date: 11/14/1715:00:00 CDT, Duration: 30 day, Stop date: 12/13/16 5:30:00 CDT Notes: porcine heparin Start Date: 11/13/16 Stop Date: 11/25/16 Status: Discontinuedheparin 5,000 unit, 1 mL, Route: SUB-Q, Drug form: INJ, Q12H, Dosing Weight 153.273, kg , Start date: 11/12/16 21:00:00 CDT, Duration: 30 day, Stop date: 12/12/16 9:00: 00 CDT Notes: porcine heparin Start Date: 11/12/16 Stop Date: 11/13/16 Status: Discontinuedheparin 1,000 unit, 1 mL, Route: IV Lock, Drug form: INJ, PRN, Dosing Weight 153.273, kg , PRN Dialysis, Start date: 11/13/16 17:51:00 CDT, Duration: 30 day, Stop date: 12/13/16 17:50:00 CDT Start Date: 11/13/16 Stop Date: 11/25/16 Status: DiscontinuedhydrALAZINE 10 mg, 0.5 mL, Route: IVP, Drug form: INJ, Q4H, Dosing Weight 153.273, kg, PRN Elevated BP, Start date: 11/14/16 6:23:00 CDT, Duration: 30 day, Stop date: 11/25 6:22:00 CDT, Systolic BP >160 Notes: (Same as: Apresoline)Push over 5 minutes Start Date: 11/14/16 Stop Date: 11/25/16 Status: DiscontinuedhydrALAZINE 25 mg oral tablet 25 mg, 1 tab, Route: PO, Drug form: TAB, Q6H, Dosing Weight 153.273, kg, Start date: 11/14/16 18:00:00 CDT, Duration: 30 day, Stop date: 12/14/16 12:00:00 CDT Notes: (Same as: Apresoline) May interfere w/enteral feedings Take With Food. Start Date: 11/14/16 Stop Date: 11/20/16 Status: DiscontinuedhydrALAZINE 25 mg oral tablet 50 mg, 2 tab, Route: PO, Drug form: TAB, Q6H, Dosing Weight 149.003, kg, Start date: 11/20/16 12:00:00 CDT, Duration: 30 day, Stop date: 12/20/16 6:00:00 CDT Notes: (Same as: Apresoline) May interfere w/enteral feedings Take With Food. Start Date: 11/20/16 Stop Date: 11/25/16 Status: DiscontinuedhydrALAZINE 50 mg oral tablet PO, Q6H, 0 Refill(s) Start Date: 11/25/16 Stop Date: 11/27/16 Status: Completedinsulin aspart 4 unit, 0.04 mL, Route: SUB-Q, Drug form: SOLN, TID-Before Meals, Dosing Weight 153.273, kg, PRN Blood Glucose Results, Start date: 11/13/16 11:25:00 CDT, Duration: 30 day, Stop date: 12/13/16 11:24:00CDT Notes: Roll in palms of hands gently; Do not shake vigorously. (Same as: [employer])"single patient use only"WASTE: F/P - Black; E - Municipal Trash Bin Stable for 28 days at room temperature.Expires in days from Date Start Date: 11/13/16 Stop Date: 11/25/16 Status: Discontinuedinsulin aspart 3 unit, 0.03 mL, Route: SUB-Q, Drug form: SOLN, TID-Before Meals, Dosing Weight 153.273, kg, PRN Blood Glucose Results, Start date: 11/13/16 11:25:00 CDT, Duration: 30 day, Stop date: 12/13/16 11:24:00CDT Notes: Roll in palms of hands gently; Do not shake vigorously. (Same as: [employer])"single patient use only"WASTE: F/P - Black; E - Municipal Trash Bin Stable for 28 days at room temperature.Expires in days from Date Start Date: 11/13/16 Stop Date: 11/25/16 Status: Discontinuedinsulin aspart 5 unit, 0.05 mL, Route: SUB-Q, Drug form: SOLN, TID-Before Meals, Dosing Weight 153.273, kg, PRN Blood Glucose Results, Start date: 11/13/16 11:25:00 CDT, Duration: 30 day, Stop date: 12/13/16 11:24:00CDT Notes: Roll in palms of hands gently; Do not shake vigorously. (Same as: NovoLOG)"single patient use only"WASTE: F/P - Black; E - Municipal Trash Bin Stable for 28 days at room temperature.Expires in days from Date Start Date: 11/13/16 Stop Date: 11/25/16 Status: Discontinuedinsulin aspart 2 unit, 0.02 mL, Route: SUB-Q, Drug form: SOLN, TID-Before Meals, Dosing Weight 153.273, kg, PRN Blood Glucose Results, Start date: 11/13/16 11:25:00 CDT, Duration: 30 day, Stop date: 12/13/16 11:24:00CDT Notes: Roll in palms of hands gently; Do not shake vigorously. (Same as: NovoLOG)"single patient use only"WASTE: F/P - Black; E - Municipal Trash Bin Stable for 28 days at room temperature.Expires in days from Date Start Date: 11/13/16 Stop Date: 11/25/16 Status: Discontinuedinsulin aspart 1 unit, 0.01 mL, Route: SUB-Q, Drug form: SOLN, TID-Before Meals, Dosing Weight 153.273, kg, PRN Blood Glucose Results, Start date: 11/13/16 11:25:00 CDT, Duration: 30 day, Stop date: 12/13/16 11:24:00CDT Notes: Roll in palms of hands gently; Do not shake vigorously. (Same as: NovoLOG)"single patient use only"WASTE: F/P - Black; E - Municipal Trash Bin Stable for 28 days at room temperature.Expires in days from Date Start Date: 11/13/16 Stop Date: 11/25/16 Status: Discontinuedlabetalol 400 mg, 4 tab, Route: PO, Drug form: TAB, Q12H, Dosing Weight 149.003, kg, Start date: 11/21/16 21:00:00 CDT, Duration: 30 day, Stop date: 12/21/16 9:00: 00 CDT Notes: With food. (Same as:Trandate, Normodyne) Start Date: 11/21/16 Stop Date: 11/25/16 Status: Discontinuedlabetalol 200 mg, 2 tab, Route: PO, Drug form: TAB, Q12H, Dosing Weight 149.003, kg, Priority: NOW, Start date: 11/21/16 14:12:00 CDT, Duration: 30 day, Stop date: 12/21/16 9:00:00 CDT Notes: With food. (Same as:Trandate, Normodyne) Start Date: 11/21/16 Stop Date: 11/23/16 Status: Voided With Resultslabetalol 100 mg oral tablet 400 mg=4 tab, PO, Q12H, 0 Refill(s) Start Date: 11/25/16 Status: Suspendedlactulose 10 g/15 mL oral syrup 20 gm, 30 ml, Route: PO, Drug form: SYRP, Q6H, Dosing Weight 149.003, kg, PRN Constipation, Priority: NOW, Start date: 11/21/16 9:47:00 CDT, Duration: 30 day , Stop date: 12/21/16 9:46:00 CDT Notes: (Same as:Chronulac) Start Date: 11/21/16 Stop Date: 11/21/16 Status: DeletedLasix 40 mg, 4 mL, Route: IVP, Drug form: INJ, BID Diuretic, Dosing Weight 153.273, kg , Start date: 11/12/16 8:00:00 CDT, Duration: 30 day, Stop date: 12/11/16 16:00: 00 CDT Notes: (Same as: Lasix) MEDICATION WASTE Product Size: 40 mgProduct Wasted: ___ mg Start Date: 11/12/16 Stop Date: 11/13/16 Status: DiscontinuedLevaquin 750 mg oral tablet 750 mg=1 tab, PO, Daily, X 5 day, # 5 tab, 0 Refill(s), given to patient Start Date: 11/26/16 Stop Date: 11/27/16 Status: Completedlevofloxacin 750 mg, 150 mL, Route: IVPB, Drug form: SOLN, [id number], Dosing Weight 149.003, kg , Start date: 11/21/16 11:00:00 CDT, Stop date: 12/20/16 11:00:00 CDT Notes: (Same as:Levaquin) Start Date: 11/21/16 Stop Date: 11/25/16 Status: Discontinuedlevothyroxine 200 microgram, 2 tab, Route: PO, Drug form: TAB, [id number], Dosing Weight 153.273, kg, Start date: 11/13/16 6:30:00 CDT, Duration: 30 day, Stop date: 12/12/16 6:30 :00 CDT Notes: Take 1 hour before or 2 hours after meal; Enteral feeds may interefere with the absorption ofthis medication. (Same as:Levothroid, Synthroid) Start Date: 11/13/16 Stop Date: 11/25/16 Status: Discontinuedlevothyroxine 100 mcg (0.1 mg) oral tablet 200 microgram=2 tab, PO, Q630AM, 0 Refill(s) Start Date: 11/25/16 Status: Suspendedlinezolid 600 mg, 300 mL, Route: IVPB, Drug form: SOLN, [id number], Dosing Weight 149.003, kg , Start date: 11/23/16 21:00:00 CDT, Duration: 30 day, Stop date: 12/23/16 9:00: 00 CDT Notes: (Same as: Zyvox) Start Date: 11/23/16 Stop Date: 11/25/16 Status: Discontinuedlinezolid 600 mg oral tablet 600 mg=1 tab, PO, Q12H, X 5 day, # 10 tab, 0 Refill(s), given to patient Start Date: 11/25/16 Stop Date: 11/27/16 Status: Completedlosartan 25 mg, 1 tab, Route: PO, Drug form: TAB, BID, Dosing Weight 153.273, kg, Start date: 11/14/16 17:00:00 CDT, Duration: 30 day, Stop date: 12/14/16 9:00:00 CDT Notes: (Same as: May) Start Date: 11/14/16 Stop Date: 11/15/16 Status: Discontinuedlosartan 50 mg, 1 tab, Route: PO, Drug form: TAB, BID, Dosing Weight 153.273, kg, Start date: 11/15/16 17:00:00 CDT, Duration: 30 day, Stop date: 12/15/16 9:00:00 CDT Notes: (Same as: May) Start Date: 11/15/16 Stop Date: 11/20/16 Status: DiscontinuedMaalox Advanced Regular Strength SUSP 30 mL, Route: PO, Drug Form: SUSP, Dosing Weight 149.003, kg, QID, PRN Heartburn , Start date: 11/20/16 17:31:00 CDT, Duration: 30 day, Stop date: 12/20/16 17:30 :00 CDT Notes: (aluminum hydroxide-magnesium hyd-simethicone [id number]/5ml 30 ml ud SPIKE) Start Date: 11/20/16 Stop Date: 11/25/16 Status: Discontinuedmagnesium oxide 800 mg, 2 tab, Route: PO, Drug form: TAB, PRN, Dosing Weight 153.273, kg, PRN Abnormal Lab Result, FOR ICU USE ONLY, Start date: 11/12/16 20:29:00 CDT, Duration: 30 day, Stop date: 12/12/16 20:28:00 CDT Notes: (Same as: Mag-Ox 400)Magnesium oxide [id number] elemental magnesiumDose= ____mg magnesium oxide (___mg elemental magnesium) Start Date: 11/12/16 Stop Date: 11/18/16 Status: Discontinuedmagnesium sulfate 2 gm, 50 mL, Route: IVPB, Drug form: INJ, PRN, Dosing Weight 153.273, kg, PRN Abnormal Lab Result, Start date: 11/12/16 20:29:00 CDT, Duration: 30 day, Stop date: 12/12/16 20:28:00 CDT, FOR ICU USE ONLY Notes: WASTE: F/P - Sink; E - Municipal Trash Bin Start Date: 11/12/16 Stop Date: 11/18/16 Status: Discontinuedmannitol 12.5 gm, 50 mL, Route: IVPB, Drug form: INJ, PRN, Dosing Weight 153.273, kg, PRN Dialysis, Start date: 11/13/16 17:55:00 CDT, Duration: 2 doses or times, Stop date: Limited # of times Notes: (Same as: Osmitrol) Infuse through 5 micron or smaller filter WASTE: F/ P - Sink; E - Municipal Trash Bin Start Date: 11/13/16 Stop Date: 11/25/16 Status: DiscontinuedmethylPREDNISolone SODium SUCCinate 40 mg, 1 mL, Route: IVP, Drug form: INJ, Daily, Dosing Weight 153.273, kg, Start date: 11/17/16 9:00:00 CDT, Duration: 30 day, Stop date: 12/16/16 9:00:00 CDT Notes: (Same as:Solu-MEDROL, A-Methapred) Start Date: 11/17/16 Stop Date: 11/18/16 Status: DiscontinuedmethylPREDNISolone SODium SUCCinate 40 mg, 1 mL, Route: IVP, Drug form: INJ, Q8H, Dosing Weight 153.273, kg, Start date: 11/13/16 12:00:00 CDT, Duration: 30 day, Stop date: 12/13/16 4:00:00 CDT Notes: (Same as:Solu-MEDROL, A-Methapred) Start Date: 11/13/16 Stop Date: 11/17/16 Status: DiscontinuedmethylPREDNISolone SODium SUCCinate 125 mg, 2 mL, Route: IVP, Drug form: INJ, ONCE, Dosing Weight 153.273, kg, Start date: 11/13/16 9:02:00 CDT, Stop date: 11/13/16 9:02:00 CDT Notes: (Same as:Solu-MEDROL, A-Methapred) Start Date: 11/13/16 Stop Date: 11/13/16 Status: Completedmetolazone 2.5 mg oral tablet 2.5 mg, 1 tab, Route: PO, Drug form: TAB, ONCE, Dosing Weight 149.003, kg, Start date: 11/15/16 13:09:00 CDT, Stop date: 11/15/16 13:09:00 CDT Notes: (Same as: Zaroxolyn) Start Date: 11/15/16 Stop Date: 11/15/16 Status: Completedmetolazone 2.5 mg oral tablet 5 mg=2 tab, PO, Daily, 0 Refill(s) Start Date: 11/25/16 Status: Suspendedmetolazone 2.5 mg oral tablet 2.5 mg, 1 tab, Route: PO, Drug form: TAB, Daily, Dosing Weight 153.273, kg, Start date: 11/15/16 9:00:00 CDT, Duration: 30 day, Stop date: 12/14/16 9:00:00 CDT Notes: (Same as: Zaroxolyn) Start Date: 11/15/16 Stop Date: 11/17/16 Status: Discontinuedmetolazone 2.5 mg oral tablet 5 mg, 2 tab, Route: PO, Drug form: TAB, Daily, Dosing Weight 153.273, kg, Start date: 11/17/16 9:00:00 CDT, Duration: 30 day, Stop date: 12/16/16 9:00:00 CDT Notes: (Same as: Zaroxolyn) Start Date: 11/17/16 Stop Date: 11/25/16 Status: Discontinuedmorphine Sulfate 2 mg, 1 mL, Route: IV, Drug form: INJ, Q4H, Dosing Weight 149.003, kg, PRN Pain Score 7-10, Start date: 11/24/16 1:25:00 CDT, Duration: 30 day, Stop date: 12/24 1:24:00 CDT Notes: (Same as:MORPhine Sulfate) Start Date: 11/24/16 Stop Date: 11/25/16 Status: DiscontinuedNorco 5/325 oral tablet 1 tab, Route: PO, Drug Form: TAB, Dosing Weight 149.003, kg, Q6H, PRN Pain Score 7-10, Start date: 11/19/16 9:10:00 CDT, Duration: 30 day, Stop date: 12/19 9:09:00 CDT Notes: (Same as: [place] 325/5) Do not exceed 4gm/day of acetaminophen. Start Date: 11/19/16 Stop Date: 11/25/16 Status: Discontinuednystatin topical 100,000 units/g powder 1 appl, Route: TOP, PRN, Drug form: PWDR, PRN For Fungal Prophylaxis, Start date : 11/12/16 20:29:00 CDT, Duration: 30 day, Stop date: 12/12/16 20:28:00 CDT Notes: (Same as:Mycostatin, Nilstat) For external use only. Start Date: 11/12/16 Stop Date: 11/25/16 Status: Discontinuedondansetron 4 mg, 2 mL, Route: IVP, Drug form: INJ, Q8H, Dosing Weight 153.273, kg, PRN Nausea & Vomiting, Start date: 11/12/16 20:29:00 CDT, Duration: 30 day, Stop date: 12/12/16 20:28:00 CDT Notes: (Same as: Zofran) MEDICATION WASTE Product Size: 4 mgProduct Wasted: ___ mg Start Date: 11/12/16 Stop Date: 11/25/16 Status: Discontinuedpantoprazole 40 mg, Route: IVP, Drug form: INJ, Daily, Dosing Weight 153.273, kg, Start date : 11/13/16 9:00:00 CDT, Duration: 30 day, Stop date: 12/12/16 9:00:00 CDT Notes: For IV push reconstitute with 10 ml 0.9% sodium chloride and push over 2 minutes. (Same as: Protonix) Start Date: 11/13/16 Stop Date: 11/18/16 Status: DiscontinuedPhenergan 25 mg, 1 mL, Route: IM, Drug form: INJ, Q6H, Dosing Weight 149.003, kg, PRN as needed for nausea/vomiting, Start date: 11/22/16 10:47:00 CDT, Duration: 30 day , Stop date: 12/22/16 10:46:00 CDT Notes: Do not give IV push. (Same as: Phenergan) Start Date: 11/22/16 Stop Date: 11/25/16 Status: Discontinuedpotassium chloride 20 mEq, 1 tab, Route: PO, Drug form: ERTAB, PRN, Dosing Weight 153.273, kg, PRN Abnormal Lab Result,Start date: 11/12/16 20:29:00 CDT, Duration: 30 day, Stop date: 12/12/16 20:28:00 CDT, FOR ICU USE ONLY Notes: (Same as: K-Dur 20)"Do Not Crush" With food and full glass of water Start Date: 11/12/16 Stop Date: 11/18/16 Status: Discontinuedpotassium chloride 20 mEq, 15 mL, Route: NJ, Drug form: LIQ, PRN, Dosing Weight 153.273, kg, PRN Abnormal Lab Result, Start date: 11/12/16 20:29:00 CDT, Duration: 30 day, Stop date: 12/12/16 20:28:00 CDT, FOR ICU USE ONLY Notes: (Same as: Potassium Chloride) Start Date: 11/12/16 Stop Date: 11/18/16 Status: Discontinuedpotassium chloride 10 mEq, 100 mL, Route: IVPB, Drug form: INJ, PRN, Dosing Weight 153.273, kg, PRN Abnormal Lab Result, Via peripheral line, Start date: 11/12/16 20:29:00 CDT , Duration: 30 day, Stop date: 12/12/16 20:28:00 CDT, FOR ICU USE ONLY Notes: Infuse at a rate of 10 mEq/hr.(Same as: KCL) Start Date: 11/12/16 Stop Date: 11/18/16 Status: Discontinuedpotassium chloride 20 mEq, 100 mL, Route: IVPB, Drug form: INJ, PRN, Dosing Weight 153.273, kg, PRN Abnormal Lab Result, Via central line, Start date: 11/12/16 20:29:00 CDT, Duration: 30 day, Stop date: 12/12/16 20:28:00CDT, FOR ICU USE ONLY Notes: (Same as: KCL) Infuse no faster than 10 mEq/hr if given peripherally. Start Date: 11/12/16 Stop Date: 11/18/16 Status: Discontinuedpotassium phosphate + sodium chloride 0.9% INJ 250 mL 45 mmol, 15 mL, Route: IVPB, PRN, Dosing Weight 153.273, kg, PRN Abnormal Lab Result, Start date: 11/12/16 20:29:00 CDT, Duration: 30 day, Stop date: 20:28:00 CDT, FOR ICU USE ONLY Notes: (Same as: K Phosphate.) 1 mMol phoshate has 1.47 mEq potassium Infuse over 4 hours Start Date: 11/12/16 Stop Date: 11/18/16 Status: Discontinuedpotassium phosphate + sodium chloride 0.9% INJ 250 mL 15 mmol, 5 mL, Route: IVPB, PRN, Dosing Weight 153.273, kg, PRN Abnormal Lab Result, Start date: 11/12/16 20:29:00 CDT, Duration: 30 day, Stop date: 20:28:00 CDT, FOR ICU USE ONLY Notes: (Same as: K Phosphate.) 1 mMol phoshate has 1.47 mEq potassium Infuse over 4 hours Start Date: 11/12/16 Stop Date: 11/18/16 Status: Discontinuedpotassium phosphate + sodium chloride 0.9% INJ 250 mL 30 mmol, 10 mL, Route: IVPB, PRN, Dosing Weight 153.273, kg, PRN Abnormal Lab Result, Start date: 11/12/16 20:29:00 CDT, Duration: 30 day, Stop date: 20:28:00 CDT, FOR ICU USE ONLY Notes: (Same as: K Phosphate.) 1 mMol phoshate has 1.47 mEq potassium Infuse over 4 hours Start Date: 11/12/16 Stop Date: 11/18/16 Status: Discontinuedpotassium phosphate-sodium phosphate 250 mg-280 mg-160 mg oral powder for reconstitution 2 pkt, Route: PO, Drug Form: PDR/REC, Dosing Weight 153.273, kg, PRN, PRN Abnormal Lab Result, FOR ICU USE ONLY, Start date: 11/12/16 20:29:00 CDT, Duration: 30 day, Stop date: 12/12/16 20:28:00 CDT Notes: (Same as: Phos-NaK) Each 1.5 gm pkt has 250mg phosphorous. Mix w/2.5oz water and stir. Start Date: 11/12/16 Stop Date: 11/18/16 Status: DiscontinuedpredniSONE 40 mg, 2 tab, Route: PO, Drug form: TAB, Daily, Dosing Weight 149.003, kg, Start date: 11/19/16 9:00:00 CDT, Duration: 30 day, Stop date: 12/18/16 9:00:00 CDT Notes: Take with food. Start Date: 11/19/16 Stop Date: 11/25/16 Status: DiscontinuedpredniSONE 20 mg oral tablet 40 mg=2 tab, PO, Daily, 0 Refill(s) Start Date: 11/25/16 Status: SuspendedProtonix 40 mg, 1 tab, Route: PO, Drug form: ECTAB, Daily, Start date: 11/18/16 9:00:00 CDT, Duration: 30 day, Stop date: 12/17/16 9:00:00 CDT Notes: Tablet should not be chewed or crushed.(Same as: Protonix) Start Date: 11/18/16 Stop Date: 11/25/16 Status: DiscontinuedPulmicort Respules 0.5 mg/2 mL inhalation suspension 0.5 mg, 2 mL, Route: NEB, Drug form: SUSP, RQ12H, Dosing Weight 153.273, kg, Start date: 11/13/16 9:02:00 CDT, Duration: 30 day, Stop date: 12/13/16 4:00:00 CDT Notes: (Same As: Pulmicort) Start Date: 11/13/16 Stop Date: 11/25/16 Status: DiscontinuedPulmicort Respules 0.5 mg/2 mL inhalation suspension 0.5 mg=2 mL, NEB, RQ12H, 0 Refill(s) Start Date: 11/25/16 Status: SuspendedRocephin + sodium chloride 0.9% INJ 100 mL 1 gm, Route: IVPB, [id number], Dosing Weight 153.273, kg, Start date: 11/12/16 21: 00:00 CDT, Duration: 30 day, Stop date: 12/11/16 21:00:00 CDT Notes: (Same As: Rocephin).Use with 100 mL NS and infuse over 30 min MEDICATION WASTE Product Size: 1000 mgProduct Wasted: ___ mg Start Date: 11/12/16 Stop Date: 11/21/16 Status: DiscontinuedSaline Flush 0.9% 10 ml, Route: IVP, Drug Form: INJ, Dosing Weight 153.273, kg, Q12H, Start date: 11/12/16 21:00:00 CDT, Duration: 30 day, Stop date: 12/12/16 9:00:00 CDT Notes: (Same as: BD Posiflush) Start Date: 11/12/16 Stop Date: 11/25/16 Status: DiscontinuedSaline Flush 0.9% 10 ml, Route: IVP, Drug Form: INJ, Dosing Weight 153.273, kg, PRN, PRN Line Flush, Start date: 11/12/16 20:29:00 CDT, Duration: 30 day, Stop date: 12/12/16 20:28:00 CDT Notes: (Same as: BD Posiflush) Start Date: 11/12/16 Stop Date: 11/25/16 Status: DiscontinuedSodium Chloride 0.9% (Bolus) IV 500 mL, 500 ml/hr, Infuse Over: 1 hr, Route: IV, 500, Drug form: INJ, PRN, Dosing Weight 153.273 kg,Start date: 11/14/16 11:25:00 CDT, Duration: 1 doses or times, Stop date: Limited # of times, PRN Dialysis Start Date: 11/14/16 Stop Date: 11/20/16 Status: Completedsodium chloride 0.9% (Priming and Maintenance) 2,000 mL, 2000 ml/hr, Infuse Over: 1 hr, Route: IV, 2,000, Drug form: INJ, PRN, Dosing Weight 149.003 kg, Start date: 11/19/16 9:27:00 CDT, Duration: 24 hr, Stop date: 11/20/16 9:26:00 CDT, For Use by Dialysis nurse ONLY, PRN Dialysis Start Date: 11/19/16 Stop Date: 11/20/16 Status: Completedsodium chloride 0.9% (Priming and Maintenance) 2,000 mL, 500 ml/hr, Infuse Over: 4 hr, Route: IV, 2,000, Drug form: INJ, PRN, Dosing Weight 153.273kg, Start date: 11/14/16 11:25:00 CDT, Duration: 24 hr, Stop date: 11/15/16 11:24:00 CDT, For Use byDialysis nurse ONLY, PRN Dialysis Start Date: 11/14/16 Stop Date: 11/15/16 Status: Completedsodium chloride 0.9% (Priming and Maintenance) 2,000 mL, Route: IV, Drug form: INJ, PRN, Dosing Weight 149.003 kg, Start date: 11/16/16 13:35:00 CDT, Duration: 24 hr, Stop date: 11/17/16 13:34:00 CDT, For Use by Dialysis nurse ONLY, PRN Dialysis Start Date: 11/16/16 Stop Date: 11/17/16 Status: Completedsodium chloride 0.9% (Priming and Maintenance) 2,000 mL, 2000 ml/hr, Infuse Over: 1 hr, Route: IV, 2,000, Drug form: INJ, PRN, Dosing Weight 153.273 kg, Start date: 11/13/16 17:51:00 CDT, Duration: 24 hr, Stop date: 11/14/16 17:50:00 CDT, For Use by Dialysis nurse ONLY, PRN Dialysis Start Date: 11/13/16 Stop Date: 11/14/16 Status: Completedsodium chloride 0.9% 1000 ml INJ 1,000 mL 1,000 mL, Rate: FOR PRIMING AND MAINTENANCE, Route: IV, Dosing Weight 153.273 kg , Total Volume: 1,000, Start date: 11/15/16 23:20:00 CDT, Duration: 2 doses or times, Stop date: 11/17/16 23:19:00 CDT Start Date: 11/15/16 Stop Date: 11/17/16 Status: Completedsodium chloride 0.9% INJ 250 mL 250 mL, 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, Dosing Weight 149.003, kg, Route: IV, Total Volume: 250, Start Date: 11/18/16 9:23:00 CDT, Duration: 30 day, Stop date: 12/18/16 9:22:00CDT, Replace Every: 24 hr Start Date: 11/18/16 Stop Date: 11/25/16 Status: DiscontinuedSodium Chloride 0.9% IV IV, 250 ml/hr, PRN, PRN Other -See Comment, Start date: 11/14/16 23:20:00 CDT, Duration: 3, 250 ml Start Date: 11/14/16 Stop Date: 11/25/16 Status: Discontinuedsodium phosphate + sodium chloride 0.9% INJ 250 mL 30 mmol, 10 mL, Route: IVPB, PRN, Dosing Weight 153.273, kg, PRN Abnormal Lab Result, Start date: 11/12/16 20:29:00 CDT, Duration: 30 day, Stop date: 20:28:00 CDT, FOR ICU USE ONLY Start Date: 11/12/16 Stop Date: 11/18/16 Status: Discontinuedsodium phosphate + sodium chloride 0.9% INJ 250 mL 45 mmol, 15 mL, Route: IVPB, PRN, Dosing Weight 153.273, kg, PRN Abnormal Lab Result, Start date: 11/12/16 20:29:00 CDT, Duration: 30 day, Stop date: 20:28:00 CDT, FOR ICU USE ONLY Start Date: 11/12/16 Stop Date: 11/18/16 Status: Discontinuedsodium phosphate + sodium chloride 0.9% INJ 250 mL 15 mmol, 5 mL, Route: IVPB, PRN, Dosing Weight 153.273, kg, PRN Abnormal Lab Result, Start date: 11/12/16 20:29:00 CDT, Duration: 30 day, Stop date: 20:28:00 CDT, FOR ICU USE ONLY Start Date: 11/12/16 Stop Date: 11/18/16 Status: Discontinuedspironolactone 25 mg oral tablet 25 mg=1 tab, PO, BID, 0 Refill(s) Start Date: 11/25/16 Status: Suspendedsulfamethoxazole-trimethoprim DS 800 mg-160 mg oral tablet 1 tab, PO, BID, # 14 tab, 0 Refill(s) Start Date: 11/12/16 Stop Date: 11/25/16 Status: Discontinuedtramadol 50 mg oral tablet 50 mg=1 tab, PO, Q6H, PRN Pain Score 4-6, 0 Refill(s) Start Date: 11/25/16 Status: Suspendedtramadol 50 mg oral tablet 50 mg, 1 tab, Route: PO, Drug form: TAB, Q6H, Dosing Weight 149.003, kg, PRN Pain Score 4-6, Start date: 11/19/16 9:11:00 CDT, Duration: 30 day, Stop date: 12/19/16 9:10:00 CDT Notes: Not to exceed 400mg/day. (Same As: Ultram) Start Date: 11/19/16 Stop Date: 11/25/16 Status: Discontinuedtrazodone 50 mg oral tablet 50 mg=1 tab, PO, Bedtime, PRN Insomnia, 0 Refill(s) Start Date: 11/25/16 Status: Suspendedtrazodone 50 mg oral tablet 50 mg, 1 tab, Route: PO, Drug form: TAB, Bedtime, Dosing Weight 149.003, kg, PRN Insomnia, Start date: 11/21/16 18:51:00 CDT, Duration: 30 day, Stop date: 18:50:00 CDT Notes: (Same As: Jose Alfredoel) Start Date: 11/21/16 Stop Date: 11/25/16 Status: Discontinuedvancomycin 500 mg, Route: IVPB, Drug form: INJ, [id number], Dosing Weight 153.273, kg, Start date: 11/13/16 3:00:00 CDT, Duration: 30 day, Stop date: 12/12/16 15:00:00 CDT Start Date: 11/13/16 Stop Date: 11/13/16 Status: Deletedvancomycin + sodium chloride 0.9% 500 mL INJ (for IV set) 500 mL 2,000 mg, Route: IVPB, [id number], Start date: 11/13/16 3:00:00 CDT, Duration: 30 day, Stop date: 12/11/16 3:00:00 CDT Notes: TIME CRITICAL MEDICATION(Same As: Vancocin)Infusion rate< 1000 mg: infuse over 1 [id number] - 1500 mg: infuse over 1.5 [id number] - 2000 mg: infuse over 2 hours> 2001 mg: infuse over 2.5 hours MEDICATION WASTE Product Size: 1000 mgProduct Wasted: ___ mg Start Date: 11/13/16 Stop Date: 11/18/16 Status: Discontinuedzolpidem 5 mg oral tablet 5 mg=1 tab, PO, Bedtime, PRN as needed for sleep, 0 Refill(s) Start Date: 11/25/16 Status: Suspended Results BLOOD BANK RESULTS Most recent to oldest [Reference Range]: 1 2 3 4 ABO/Rh A POS *Unknown* (11/18/16 6:32 AM) Antibody Scrn Positive 1 (11/18/16 6:32 AM) AB Sendout Int Anti-K *Unknown* (11/18/16 8:39 AM) RBC product Product available 2 (11/18/16 9:23 AM) 1Result Comment: 11/18/2016 07:30 [email or web address] "Significant Findings of POSITIVE ANTIBODY called to CARROLL Villalpando at 11/18/2016 07:29 by ANIMAL HUSBANDRY TEACHER. Read Back OK"2Result Comment: 11/18/2016 16:48 [id number] Called to Hilda Dexter RN at 11/18/2016 16:48 by SS.[email or web address] Most recent to oldest 1 2 3 4 [Reference Range]: Sodium Lvl [135-145 mEq/L] 129 mEq/L 132 mEq/L 133 mEq/L *LOW* *LOW* *LOW* (11/25/16 10:33 AM) (11/24/16 4:26 AM) (11/23/16 4:10 AM) Potassium Lvl [3.5-5.1 5.0 mEq/L 4.8 mEq/L 4.8 mEq/L mEq/L] (11/25/16 10:33 AM) (11/24/16 4:26 AM) (11/23/16 4:10 AM) Chloride Lvl [95-109 93 mEq/L 94 mEq/L 95 mEq/L mEq/L] *LOW* *LOW* (11/23/16 4:10 AM) (11/25/16 10:33 AM) (11/24/16 4:26 AM) CO2 [24-32 mEq/L] 29 mEq/L 30 mEq/L 30 mEq/L (11/25/16 10:33 AM) (11/24/16 4:26 AM) (11/23/16 4:10 AM) AGAP [10.0-20.0 mEq/L] 12.0 mEq/L 12.8 mEq/L 12.8 mEq/L (11/25/16 10:33 AM) (11/24/16 4:26 AM) (11/23/16 4:10 AM) CHEM PANEL Most recent to oldest 1 2 3 4 [Reference Range]: Creatinine Lvl 3.06 mg/dL 2.79 mg/dL 2.47 mg/dL [0.50-1.40 mg/dL] *HI* *HI* *HI* (11/25/16 10:33 AM) (11/24/16 4:26 AM) (11/23/16 4:10 AM) eGFR 17 mL/min/1.73m2 1 19 mL/min/1.73m2 2 22 mL/min/1.73m2 3 *NA* *NA* *NA* (11/25/16 10:33 AM) (11/24/16 4:26 AM) (11/23/16 4:10 AM) BUN [7-22 mg/dL] 61 mg/dL 53 mg/dL 45 mg/dL *HI* *HI* *HI* (11/25/16 10:33 AM) (11/24/16 4:26 AM) (11/23/16 4:10 AM) B/C Ratio [6-25] 19 12 12 (11/24/16 4:26 AM) (11/18/16 5:51 AM) (11/17/16 3:22 AM) Glucose Lvl [70-99 200 mg/dL 203 mg/dL 163 mg/dL mg/dL] *HI* *HI* *HI* (11/25/16 10:33 AM) (11/24/16 4:26 AM) (11/23/16 4:10 AM) Uric Acid [2.5-7.0 6.2 mg/dL mg/dL] (11/12/16 11:42 PM) Total Protein [6.4-8.4 5.0 g/dL 4.9 g/dL 5.4 g/dL 5.4 g/dL g/dL] *LOW* *LOW* *LOW* *LOW* (11/24/16 4:26 AM) (11/18/16 5:51 AM) (11/17/16 3:22 AM) (11/17/16 3:22 AM) Albumin Lvl [3.5-5.0 2.3 g/dL 2.3 g/dL 2.5 g/dL g/dL] *LOW* *LOW* *LOW* (11/24/16 4:26 AM) (11/18/16 5:51 AM) (11/17/16 3:22 AM) Globulin [2.7-4.2 g/dL] 2.7 g/dL 2.6 g/dL 2.9 g/dL (11/24/16 4:26 AM) *LOW* (11/17/16 3:22 AM) (11/18/16 5:51 AM) A/G Ratio [0.7-1.6] 0.9 0.9 0.9 (11/24/16 4:26 AM) (11/18/16 5:51 AM) (11/17/16 3:22 AM) Calcium Lvl [8.5-10.5 7.9 mg/dL 7.8 mg/dL 7.9 mg/dL mg/dL] *LOW* *LOW* *LOW* (11/25/16 10:33 AM) (11/24/16 4:26 AM) (11/23/16 4:10 AM) Phosphorus [2.5-4.5 2.7 mg/dL 3.1 mg/dL 4.1 mg/dL mg/dL] (11/18/16 5:51 AM) (11/17/16 3:22 AM) (11/16/16 4:03 AM) Magnesium Lvl [1.8-2.4 2.2 mg/dL 2.2 mg/dL 2.3 mg/dL mg/dL] (11/18/16 5:51 AM) (11/17/16 3:22 AM) (11/16/16 4:03 AM) ALT [0-65 unit/L] 19 unit/L 14 unit/L 16 unit/L (11/24/16 4:26 AM) (11/18/16 5:51 AM) (11/17/16 3:22 AM) AST [0-37 unit/L] 8 unit/L 13 unit/L 9 unit/L (11/24/16 4:26 AM) (11/18/16 5:51 AM) (11/17/16 3:22 AM) Alk Phos [39-136 53 unit/L 49 unit/L 53 unit/L unit/L] (11/24/16 4:26 AM) (11/18/16 5:51 AM) (11/17/16 3:22 AM) LDH [98-192 unit/L] 311 unit/L *HI* (11/17/16 3:22 AM) Bili Total [0.2-1.3 0.7 mg/dL 0.5 mg/dL 0.4 mg/dL mg/dL] (11/24/16 4:26 AM) (11/18/16 5:51 AM) (11/17/16 3:22 AM) Bili Direct [0.0-0.3 0.1 mg/dL mg/dL] (11/12/16 11:42 PM) Lactic Acid Lvl 0.5 mMol/L [0.5-2.2 mMol/L] (11/12/16 11:42 PM) 1Result Comment: The eGFR is calculated using the CKD-EPI formula. In most young , healthy individualsthe eGFR will be >90 mL/min/1.73m2. The eGFR declines with age. An eGFR of 60-89 may be normal in some populations, particularly the elderly, for whom the CKD-EPI formula has not been extensively validated. Use of the eGFR is not recommended in the following populations: Individuals with unstable creatinine concentrations, including patients and those with serious co-morbid conditions. Patients with extremes in muscle mass or diet. The data above are obtained from the National Kid[employer] Disease Education Program ( [employer]) which additionally recommends that when the eGFR is used in patients with extremes of body mass index for purposesof drug dosing, the eGFR should be multiplied by the estimated BMI.2Result Comment: The eGFR is calculated using the CKD-EPI formula. In most young, healthy individualsthe eGFR will be >90 mL/ min/1.73m2. The eGFR declines with age. An eGFR of 60-89 may be normal in some populations, particularly the elderly, for whom the CKD-EPI formula has not been extensively validated. Use of the eGFR is not recommended in the following populations: Individuals with unstable creatinine concentrations, including patients and those with serious co-morbid conditions. Patients with extremes in muscle mass or diet. The data above are obtained from the National Kid[employer] Education Program ( [employer]) which additionally recommends that when the eGFR is used in patients with extremes of body mass index for purposesof drug dosing, the eGFR should be multiplied by the estimated BMI.3Result Comment: The eGFR is calculated using the CKD-EPI formula. In most young, healthy individualsthe eGFR will be >90 mL/ min/1.73m2. The eGFR declines with age. An eGFR of 60-89 may be normal in some populations, particularly the elderly, for whom the CKD-EPI formula has not been extensively validated. Use of the eGFR is not recommended in the following populations: Individuals with unstable creatinine concentrations, including patients and those with serious co-morbid conditions. Patients with extremes in muscle mass or diet. The data above are obtained from the National Kid[employer] Disease Education Program ( [employer]) which additionally recommends that when the eGFR is used in patients with extremes of body mass index for purposesof drug dosing, the eGFR should be multiplied by the estimated BMI.CARDIAC ENZYMES Most recent to oldest [Reference Range]: 1 2 3 4 Troponin-I [0.00-0.40 ng/mL] <0.02 ng/mL <0.02 ng/mL (11/13/16 11:05 AM) (11/12/16 11:42 PM) BNP [<=100 pg/mL] 747 pg/mL *HI* (11/12/16 11:42 PM) LIPIDS Most recent to oldest [Reference Range]: 1 2 3 4 CHD Risk [3.90-5.80] 2.78 *LOW* (11/12/16 11:42 PM) Chol [<=199 mg/dL] 114 mg/dL (11/12/16 11:42 PM) Trig [<=149 mg/dL] 52 mg/dL (11/12/16 11:42 PM) HDL [>=61 mg/dL] 41 mg/dL *LOW* (11/12/16 11:42 PM) LDL (Calculated) [<=99 mg/dL] 63 mg/dL (11/12/16 11:42 PM) VLDL 10 *NA* (11/12/16 11:42 PM) SPECIAL CHEMISTRY Most recent to oldest [Reference Range]: 1 2 3 4 Hgb A1C [<=5.6 %] 4.7 % (11/12/16 11:42 PM) CHICHI [8-52 unit/L] 26 unit/L (11/13/16 11:05 AM) PARATHYROID PROFILE Most recent to oldest 1 2 3 4 [Reference Range]: Ca Ion WB [1.05-1.25 mMol/L] 1.11 mMol/L 1.10 mMol/L 1.06 mMol/L (11/18/16 5:51 AM) (11/17/16 3:22 AM) (11/16/16 4:03 AM) Ca Norm WB [1.05-1.25 1.14 mMol/L 1.10 mMol/L 1.05 mMol/L mMol/L] (11/18/16 5:51 AM) (11/17/16 3:22 AM) (11/16/16 4:03 AM) TOXICOLOGY Most recent to oldest [Reference Range]: 1 2 3 4 Vanco Tr TND [id number] *NA* *NA* (11/18/16 2:30 AM) (11/15/16 2:37 AM) Vanco Tr 22.9 ug/ml 10.4 ug/ml *NA* *NA* (11/18/16 2:30 AM) (11/15/16 2:37 AM) URINE CHEM Most recent to oldest [Reference Range]: 1 2 3 4 U Creatinine 83.40 mg/dL *NA* (11/13/16 10:51 AM) U Protein 1060.5 mg/dL *NA* (11/13/16 10:51 AM) U Prot/Creat 12.7 *NA* (11/13/16 10:51 AM) URINE AND STOOL Most recent to oldest [Reference Range]: 1 2 3 4 UA Turbidity [Clear] Slight Marked *ABN* *ABN* (11/15/16 12:35 PM) (11/13/16 10:51 AM) UA Color [Yellow] Yellow Dark Yellow *NA* *NA* (11/15/16 12:35 PM) (11/13/16 10:51 AM) UA pH [5.0-8.0] 5.0 5.0 (11/15/16 12:35 PM) (11/13/16 10:51 AM) UA Spec Grav [<=1.030] 1.011 1.015 (11/15/16 12:35 PM) (11/13/16 10:51 AM) UA Glucose [Negative mg/dL] 150 mg/dL 50 mg/dL *ABN* *ABN* (11/15/16 12:35 PM) (11/13/16 10:51 AM) UA Blood [Negative] Small Large *ABN* *ABN* (11/15/16 12:35 PM) (11/13/16 10:51 AM) UA Ketones [Negative mg/dL] Trace mg/dL Negative mg/dL *ABN* *NA* (11/15/16 12:35 PM) (11/13/16 10:51 AM) UA Protein [Negative mg/dL] >=300 mg/dL >=300 mg/dL *ABN* *ABN* (11/15/16 12:35 PM) (11/13/16 10:51 AM) UA Urobilinogen [0.1-1.0 mg/dL] <=1.0 mg/dL <=1.0 mg/dL *NA* *NA* (11/15/16 12:35 PM) (11/13/16 10:51 AM) UA Bili [Negative] Negative Negative *NA* *NA* (11/15/16 12:35 PM) (11/13/16 10:51 AM) UA Leuk Est [Negative] Trace Trace *ABN* *ABN* (11/15/16 12:35 PM) (11/13/16 10:51 AM) UA Nitrite [Negative] Negative Negative (11/15/16 12:35 PM) (11/13/16 10:51 AM) UA WBC [0-5 /HPF] 12 /HPF 30 /HPF *HI* *HI* (11/15/16 12:35 PM) (11/13/16 10:51 AM) UA RBC [0-2 /HPF] 21 /HPF >182 /HPF *HI* *HI* (11/15/16 12:35 PM) (11/13/16 10:51 AM) UA Bacteria [None Seen /HPF] Occasional /HPF *NA* (11/13/16 10:51 AM) UA Sq Epi None Seen *NA* (11/15/16 12:35 PM) UA Sq Epi [Few /LPF] Occasional /LPF *NA* (11/13/16 10:51 AM) UA Amorph Lety [None Seen /HPF] Occasional /HPF *NA* (11/13/16 10:51 AM) UA Mucus [None Seen /LPF] Few /LPF Few /LPF *NA* *NA* (11/15/16 12:35 PM) (11/13/16 10:51 AM) BODY FLUIDS Most recent to oldest 1 2 3 4 [Reference Range]: Glucose BF 163 mg/dL 139 mg/dL 82 mg/dL *NA* *NA* *NA* (11/23/16 2:30 PM) (11/17/16 4:05 PM) (11/13/16 3:12 PM) Gluc BF Type Pleural Pleural Pleural *NA* *NA* *NA* (11/23/16 2:30 PM) (11/17/16 4:05 PM) (11/13/16 3:12 PM) Prot BF Type Pleural Pleural Pleural *NA* *NA* *NA* (11/23/16 2:30 PM) (11/17/16 4:05 PM) (11/13/16 3:12 PM) LDH BF Type Pleural Pleural Pleural *NA* *NA* *NA* (11/23/16 2:30 PM) (11/17/16 4:05 PM) (11/13/16 3:12 PM) Lipase BF 372 unit/L *NA* (11/17/16 4:05 PM) Lipase BF Type Pleural *NA* (11/17/16 4:05 PM) Protein BF 1.6 g/dL 1.8 g/dL 1.8 g/dL *NA* *NA* *NA* (11/23/16 2:30 PM) (11/17/16 4:05 PM) (11/13/16 3:12 PM) LDH BF 226 unit/L 115 unit/L 102 unit/L *NA* *NA* *NA* (11/23/16 2:30 PM) (11/17/16 4:05 PM) (11/13/16 3:12 PM) Color BF [Colorless] Red Red Red *ABN* *ABN* *ABN* (11/23/16 2:30 PM) (11/17/16 4:05 PM) (11/13/16 3:12 PM) Clarity BF [Clear] Slight Cloudy Slight Cloudy Slight Cloudy (11/23/16 2:30 PM) (11/17/16 4:05 PM) (11/13/16 3:12 PM) Supernat BF Light Yellow Colorless Colorless [Colorless] *ABN* (11/17/16 4:05 PM) (11/13/16 3:12 PM) (11/23/16 2:30 PM) [place] [address] /mm3 [id number] /mm3 33277 /mm3 *NA* *NA* *NA* (11/23/16 2:30 PM) (11/17/16 4:05 PM) (11/13/16 3:12 PM) WBC BF 3375 /mm3 2100 /mm3 1950 /mm3 *NA* *NA* *NA* (11/23/16 2:30 PM) (11/17/16 4:05 PM) (11/13/16 3:12 PM) Segs BF 12 % 84 % 65 % *NA* *NA* *NA* (11/23/16 2:30 PM) (11/17/16 4:05 PM) (11/13/16 3:12 PM) Lymph BF 14 % 11 % 24 % *NA* *NA* *NA* (11/23/16 2:30 PM) (11/17/16 4:05 PM) (11/13/16 3:12 PM) Eos BF 0 % 0 % 0 % *NA* *NA* *NA* (11/23/16 2:30 PM) (11/17/16 4:05 PM) (11/13/16 3:12 PM) Macrophage BF 74 % 5 % 11 % *NA* *NA* *NA* (11/23/16 2:30 PM) (11/17/16 4:05 PM) (11/13/16 3:12 PM) [place] BF Occasional Occasional Occasional (11/23/16 2:30 PM) (11/17/16 4:05 PM) (11/13/16 3:12 PM) Comment BF Cytopathology order: GN: [id number]. *NA* (11/23/16 2:30 PM) CellCnt BF Type Pleural Pleural Pleural (11/23/16 2:30 PM) (11/17/16 4:05 PM) (11/13/16 3:12 PM) IMMUNOLOGY Most recent to oldest [Reference Range]: 1 2 3 4 NII [Negative] Positive *ABN* (11/13/16 11:05 AM) NII Titer [Negative] 1:40 *ABN* (11/13/16 11:05 AM) NII Interp Pattern appears Speckled, Chromosome Positive *NA* (11/13/16 11:05 AM) RF Qnt [0-20 IU/mL] <10 IU/mL (11/13/16 11:05 AM) C-ANCA [Negative] Negative (11/13/16 11:05 AM) P-ANCA [Negative] Positive *ABN* (11/13/16 11:05 AM) P-ANCA Ttr [Negative] 1:160 *ABN* (11/13/16 11:05 AM) Hep Bs Ag [Negative] Negative *NA* (11/13/16 7:00 PM) HEMATOLOGY Most recent to oldest 1 2 3 4 [Reference Range]: WBC [3.7-10.4 K/CMM] 13.7 K/CMM 18.4 K/CMM 19.3 K/CMM *HI* *HI* *HI* (11/24/16 4:26 AM) (11/22/16 4:55 AM) (11/21/16 4:24 AM) RBC [4.20-5.40 M/CMM] 2.65 M/CMM 2.83 M/CMM 2.89 M/CMM *LOW* *LOW* *LOW* (11/24/16 4:26 AM) (11/22/16 4:55 AM) (11/21/16 4:24 AM) Hgb [12.0-16.0 g/dL] 7.7 g/dL 8.1 g/dL 8.3 g/dL *LOW* *LOW* *LOW* (11/24/16 4:26 AM) (11/23/16 12:04 PM) (11/23/16 4:10 AM) Hct [36.0-48.0 %] 23.7 % 25.4 % 25.9 % *LOW* *LOW* *LOW* (11/24/16 4:26 AM) (11/23/16 12:04 PM) (11/23/16 4:10 AM) MCV [80.0-98.0 fL] 89.4 fL 90.2 fL 90.3 fL (11/24/16 4:26 AM) (11/22/16 4:55 AM) (11/21/16 4:24 AM) MCH [27.0-31.0 pg] 29.1 pg 29.3 pg 28.8 pg (11/24/16 4:26 AM) (11/22/16 4:55 AM) (11/21/16 4:24 AM) MCHC [32.0-36.0 g/dL] 32.5 g/dL 32.5 g/dL 31.9 g/dL (11/24/16 4:26 AM) (11/22/16 4:55 AM) *LOW* (11/21/16 4:24 AM) RDW [11.5-14.5 %] 16.1 % 16.8 % 16.7 % *HI* *HI* *HI* (11/24/16 4:26 AM) (11/22/16 4:55 AM) (11/21/16 4:24 AM) Platelet [133-450 K/CMM] 114 K/CMM 133 K/CMM 117 K/CMM *LOW* (11/22/16 4:55 AM) *LOW* (11/24/16 4:26 AM) (11/21/16 4:24 AM) MPV [7.4-10.4 fL] 8.4 fL 8.0 fL 8.2 fL (11/24/16 4:26 AM) (11/22/16 4:55 AM) (11/21/16 4:24 AM) Segs [45.0-75.0 %] 98.5 % 95.0 % 97.0 % *HI* *HI* *HI* (11/24/16 4:26 AM) (11/22/16 4:55 AM) (11/21/16 4:24 AM) Bands [0.0-11.0 %] 9.0 % 10.0 % 9.0 % (11/20/16 4:02 AM) (11/16/16 4:03 AM) (11/12/16 11:42 PM) Lymphocytes [20.0-40.0 %] 1.4 % 1.3 % 1.0 % *LOW* *LOW* *LOW* (11/24/16 4:26 AM) (11/22/16 4:55 AM) (11/21/16 4:24 AM) Atypical Lymphs [<=0.0 %] 0.0 % (11/20/16 4:02 AM) Monocytes [2.0-12.0 %] 0.1 % 3.5 % 2.0 % *LOW* (11/22/16 4:55 AM) (11/21/16 4:24 AM) (11/24/16 4:26 AM) Eosinophils [0.0-4.0 %] 0.0 % 0.1 % 0.0 % (11/24/16 4:26 AM) (11/22/16 4:55 AM) (11/21/16 4:24 AM) Basophils [0.0-1.0 %] 0.0 % 0.1 % 0.0 % (11/24/16 4:26 AM) (11/22/16 4:55 AM) (11/21/16 4:24 AM) Metamyelocytes [0.0-1.0 %] 2.0 % *HI* (11/12/16 11:42 PM) Segs-Bands # [1.5-8.1 13.5 K/CMM 17.4 K/CMM 18.7 K/CMM K/CMM] *HI* *HI* *HI* (11/24/16 4:26 AM) (11/22/16 4:55 AM) (11/21/16 4:24 AM) Lymphocytes # [1.0-5.5 0.2 K/CMM 0.2 K/CMM 0.2 K/CMM K/CMM] *LOW* *LOW* *LOW* (11/24/16 4:26 AM) (11/22/16 4:55 AM) (11/21/16 4:24 AM) Monocytes # [0.0-0.8 0.0 K/CMM 0.6 K/CMM 0.4 K/CMM K/CMM] (11/24/16 4:26 AM) (11/22/16 4:55 AM) (11/21/16 4:24 AM) Eosinophils # [0.0-0.5 0.0 K/CMM 0.0 K/CMM 0.0 K/CMM K/CMM] (11/24/16 4:26 AM) (11/22/16 4:55 AM) (11/21/16 4:24 AM) Basophils # [0.0-0.2 0.0 K/CMM 0.0 K/CMM 0.0 K/CMM K/CMM] (11/24/16 4:26 AM) (11/22/16 4:55 AM) (11/21/16 4:24 AM) NRBC 1 /100WB *NA* (11/16/16 4:03 AM) Tot Cell Ct 100 100 100 *NA* *NA* *NA* (11/20/16 4:02 AM) (11/16/16 4:03 AM) (11/12/16 11:42 PM) RBC Morph Normal Normal (11/16/16 4:03 AM) (11/12/16 11:42 PM) Anisocyte [None Seen] 1+ 1+ 1+ *ABN* *ABN* *ABN* (11/20/16 4:02 AM) (11/18/16 2:30 AM) (11/16/16 4:03 AM) Hypochrom [None Seen] 1+ 1+ 1+ (11/20/16 4:02 AM) (11/18/16 2:30 AM) (11/17/16 3:22 AM) Target Cell Slight *NA* (11/16/16 4:03 AM) Plt Morph Normal Normal Normal (11/17/16 3:22 AM) (11/16/16 4:03 AM) (11/12/16 11:42 PM) Large Plt Slight Slight *NA* *NA* (11/16/16 4:03 AM) (11/12/16 11:42 PM) PT [12.0-14.7 seconds] 14.2 seconds 16.6 seconds 16.0 seconds (11/23/16 12:04 PM) *HI* *HI* (11/13/16 5:41 AM) (11/12/16 11:42 PM) INR [0.85-1.17] 1.08 1.32 1.25 (11/23/16 12:04 PM) *HI* *HI* (11/13/16 5:41 AM) (11/12/16 11:42 PM) PTT [22.9-35.8 seconds] 26.0 seconds (11/23/16 4:54 PM) Immunizations Given and Recorded Vaccine Date Status Refusal Reason pneumococcal 23-valent vaccine 11/20/16 Given Procedures Procedure Date Related Diagnosis Body Site Appendectomy Hysterectomy Tonsillectomy Social History Social History Type Response Substance Abuse Use: None. Alcohol Never Smoking Status Never smoker; Exposure to Tobacco Smoke None; Cigarette Smoking Last 365 Days No; Reg Smoking Cessation Counseling No Assessment and Plan Extracted from: Title: Cardiology Progress Note Author: Trini Carter Date : 11/25/16 PHD *_*_* CARDIOLOGY PROGRESS NOTE CHIEF COMPLAINT: Shortness of breath, valvular heart disease. SUBJECTIVE: Patient is resting comfortably without events overnight. She is much more upbeat. Planned for discharge to rehab later today. OBJECTIVE: VITAL SIGNS: Have been reviewed. GENERAL: Obese. No acute distress. HEENT : Normocephalic, atraumatic. NECK: JVP is flat. No carotid bruits. CARDIOVASCULAR: Regular rate and rhythm with 2/6 sy stolic ejection murmur best heard at the left upper sternal border. PULMONARY : Decreased breath sounds at the bases bilaterally with faint bibasilar crackles. ABDOMEN: Soft, nontender, nondistended without any guarding or rebound. MUSCULOSKELETAL: No cyanosis or clubbing. Mild edema noted in the lower extremities, but not in the upper extremities. NEUROLOGIC: Alert and awake and oriented x3, normal cranial nerve examination, remainder of neuro exam is normal. LABORATORY DATA: Laboratory data has been reviewed. Creatinine is slightly up-trending and is currently at 2.6. MEDICATIONS: Reviewed. ASSESSMENT AND PLAN: A 51-year-old female presented to the hospital with a combination of diastolic heart failure, volume overload, acute respiratory failure in the setting of volume overload associated with what appears to be nephrotic syndrome and heart failure with preserved ejection fraction. Heart failure: Improving. She is now euvolemic. Currently she is on labetalol 400 mg p.o. b.i.d. and clonidine 0.2 mg t.i.d.; spironolactone 25 mg and hydralazine 50 mg p.o. q.6 hours. From my perspective, she can probably be discharged. I will see her in the office within a week or two of discharge.
--- OUTSIDE RECORDS SUMMARY | 2018-11-11 20:17 | XMS REPORT | Summary of Care ---
:1965 Author Organization [facility] Address [address] [place], [place] [address]- Encounter HQ Luis(FIN) [id number] Date(s): 11/25/17 - 11/25/17 [facility] [id number] [place] [address] - [phone] Discharge Disposition: Home or Self Care Attending Physician: Trini Carter MD PHD Referring Physician: Trini Carter MD PHD Vital Signs Most recent to oldest [Reference Range]: 1 Height 160.02 cm (11/25/17 4:57 PM) Temperature Oral [96.4-99.1 DegF] 98.2 DegF (11/25/17 4:57 PM) Blood Pressure [90-140/60-90 mmHg] 199/87 mmHg *HI* (11/25/17 4:57 PM) Peripheral Pulse Rate [60-100 bpm] 87 bpm (11/25/17 4:57 PM) Weight 103.636 kg (11/25/17 4:57 PM) Body Mass Index 40.47 m2 (11/25/17 4:57 PM) Problem List Condition Effective Dates Status Health Status Informant Diabetes(Confirmed) Active Diabetes mellitus(Confirmed) Active Diastolic CHF(Confirmed) Active ESRD on dialysis(Confirmed) Active Gout(Confirmed) Active Heart valve disease(Confirmed) Active HTN (hypertension)(Confirmed) Active HTN (hypertension)(Confirmed) Active Hypothyroid(Confirmed) Active Morbid obesity(Confirmed) Active Pleural effusion(Confirmed) Active Vitamin D deficiency(Confirmed) Active Allergies, Adverse Reactions, Alerts Substance Reaction Severity Status glimepiride Dizziness Active valsartan Swelling Active Rash Irregular heart beat Victoza Fainting Active Irregular heart beat metFORMIN Muscle pain Active Medications cloNIDine 0.3 mg/24 hr transdermal film, extended release 1 patch, TOP, qWeek, # 12 patch, 0 Refill(s) Start Date: 11/25/17 Status: Orderedlabetalol 200 mg oral tablet 200 mg=1 tab, PO, TID, # 180 tab, 0 Refill(s) Start Date: 11/25/17 Status: OrderedRenvela 800 mg oral tablet 800 mg=1 tab, PO, TID-Meals, # 90 tab, 0 Refill(s) Start Date: 11/25/17 Stop Date: 12/25/17 Status: Ordered Results No data available for this section Immunizations Given and Recorded Vaccine Date Status Refusal Reason pneumococcal 23-valent vaccine 11/20/16 Given Procedures Procedure Date Related Diagnosis Body Site Status Appendectomy Completed Hysterectomy Completed Tonsillectomy Completed Social History Social History Type Response Substance Abuse Use: None. Alcohol Never Smoking Status Never smoker; Exposure to Tobacco Smoke None; Cigarette Smoking Last 365 Days No; Reg Smoking Cessation Counseling No entered on: 11/25/17 Assessment and Plan No data available for this section
--- OUTSIDE RECORDS SUMMARY | 2018-11-11 20:17 | XMS REPORT | Summary of Care ---
:1965 Author Organization [facility] Nephrology [address] [place] [address]- Encounter HQ Encntr_alisharif(FIN) [id number] Date(s): 12/09/17 - 12/09/17 [facility] Nephrology [address] [place] [phone] Attending Physician: Porter Adams MD Vital Signs No data available for this section Problem List Condition Effective Dates Status Health [...] heart beat metFORMIN Muscle pain Active Medications No data available for this section Results No data available for this section [...]
--- OUTSIDE RECORDS SUMMARY | 2018-11-11 20:17 | XMS REPORT | Summary of Care ---
:1965 Author Organization [facility] Address [address] [place], [place] [address]- Encounter HQ Luis(YAIMA) [id number] Date(s): 01/14/18 - 01/14/18 [facility] [id number] [place] [address] - [phone] Discharge Disposition: Home or Self Care Attending Physician: Trini Carter MD PHD Referring Physician: Trini Carter MD PHD Vital Signs Most recent to oldest [Reference Range]: 1 Height 160.02 cm (01/14/18 2:17 PM) Blood Pressure [90-140/60-90 mmHg] 135/71 mmHg (01/14/18 2:17 PM) Peripheral Pulse Rate [60-100 bpm] 78 bpm (01/14/18 2:17 PM) Weight 101 kg (01/14/18 2:17 PM) Body Mass Index 39.44 m2 (01/14/18 2:17 PM) Problem List Condition Effective Dates Status [...] heart beat metFORMIN Muscle pain Active Medications NIFEdipine 30 mg oral tablet, extended release 30 mg=1 tab, PO, Daily, # 90 tab, 0 Refill(s), Pharmacy: [facility]/pharmacy #[id number] Start Date: 01/14/18 Status: OrderedVitamin B12 0 Refill(s) Start Date: 01/14/18 Status: Ordered Results No data available for [...] Reg Smoking Cessation Counseling No entered on: 01/14/18 Assessment and Plan No data available for this section
--- OUTSIDE RECORDS SUMMARY | 2018-11-11 20:17 | XMS REPORT | Summary of Care ---
:1965 Author Organization [facility] Address [address] [place], [place] [address]- Encounter HQ Shaheen_kelvin(FIN) [id number] Date(s): 11/04/18 - 11/04/18 [facility] [address] [phone]- [phone] Discharge Disposition: Home or Self Care Attending Physician: Trini Carter MD PHD Referring Physician: Trini Carter MD PHD Vital Signs Most recent to oldest [Reference Range]: 1 Height 160.02 cm (11/04/18 1:53 PM) Blood Pressure [90-140/60-90 mmHg] 183/92 mmHg *HI* (11/04/18 1:53 PM) Peripheral Pulse Rate [60-100 bpm] 98 bpm (11/04/18 1:53 PM) Weight 124.091 kg (11/04/18 1:53 PM) Body Mass Index 48.46 m2 (11/04/18 1:53 PM) Problem List Condition Effective Dates Status Health Status Informant Back pain(Confirmed) Active Diabetes(Confirmed) Active Diabetes mellitus(Confirmed) Active Diastolic CHF(Confirmed) [...] beat metFORMIN Muscle pain Active Medications No Known Medications Results No data available for this section [...] Reg Smoking Cessation Counseling No entered on: 11/04/18 Assessment and Plan No data available for this section
--- OUTSIDE RECORDS SUMMARY | 2018-11-11 20:17 | XMS REPORT | Summary of Care ---
:1965 Author Organization [facility] Address [address], [place] [address]- Encounter HQ Shaheen_kelvin([facility]) [id number] Date(s): 11/26/16 - 12/03/16 [facility] [address] [place] [address]- Discharge Disposition: Senior Living Facility Attending Physician: Danny Tapia MD Admitting Physician: Danny Tapia MD Vital Signs Most recent to oldest 1 2 3 [Reference Range]: Height 160.02 cm (11/26/16 5:22 AM) Temperature Oral [96.4-99.1 97.6 DegF 97.4 DegF 98.5 DegF DegF] (12/03/16 4:18 PM) (12/03/16 11:46 AM) (12/03/16 5:48 AM) Blood Pressure [90-140/60-90 160/71 mmHg 187/76 mmHg 188/77 mmHg mmHg] *HI* *HI* *HI* (12/03/16 4:18 PM) (12/03/16 11:46 AM) (12/03/16 5:48 AM) Respiratory Rate [14-20 BRMIN] 17 BRMIN 17 BRMIN 18 BRMIN (12/03/16 4:18 PM) (12/03/16 11:46 AM) (12/03/16 5:48 AM) Peripheral Pulse Rate [60-100 85 bpm 86 bpm 92 bpm bpm] (12/03/16 4:18 PM) (12/03/16 11:46 AM) (12/03/16 5:48 AM) Weight 121.364 kg 135 kg (11/26/16 5:22 AM) (11/26/16 2:03 AM) Body Mass Index 47.4 m2 (11/26/16 5:22 AM) Problem List Condition Effective Dates Status Health [...] PO, Drug form: TAB, Q4H, Dosing Weight 135, kg, PRN Pain 1 -3/Temp > 100.4 F, Start date: 11/26/16 5:39:00 CDT, Duration: 30 day, Stop date : 12/26/16 5:38:00 CDT Notes: Do not exceed 4 gm/day. (Same as: Tylenol) Start Date: 11/26/16 Stop Date: 12/03/16 Status: Discontinuedacetaminophen 325 mg oral tablet 650 mg=2 tab, PO, Q4H, PRN for pain, # 24 tab, 0 Refill(s) Start Date: 11/27/16 Stop Date: 11/29/16 Status: Orderedacetaminophen-hydrocodone 325 mg-5 mg oral tablet 1 tab, Route: PO, Drug Form: TAB, Dosing Weight 135, kg, Q4H, PRN Pain Score 4-6 , Start date: 11/26/16 5:39:00 CDT, Duration: 30 day, Stop date: 12/26/16 5:38: 00 CDT Notes: (Same as: [place] 325/5) Do not exceed 4gm/day of acetaminophen. Start Date: 11/26/16 Stop Date: 12/03/16 Status: Discontinuedacetylcysteine 20% inhalation solution 400 mg=2 ML, INHALATION, Q6H, 0 Refill(s) Start Date: 11/27/16 Status: Orderedacetylcysteine 20% inhalation solution 600 mg, 3 mL, Route: INHALATION, Drug Form: SOLN, Dosing Weight 121.364, kg, Q4H -WA, Start date: 11/28/16 18:00:00 CDT, Duration: 30 day, Stop date: 12/28/16 14 :00:00 CDT Start Date: 11/28/16 Stop Date: 12/03/16 Status: Discontinuedalbumin human 25% intravenous solution 12.5 gm, 50 mL, Route: IVPB, Drug form: INJ, TID, Dosing Weight 121.364, kg, Start date: 11/28/16 14:30:00 CDT, Duration: 1 day, Stop date: 11/29/16 9:30:00 CDT Notes: LOT#: Mfg: WASTE: F/P - Red; E -Red (Same as: Albuminar)"blood product derivative" Start Date: 11/28/16 Stop Date: 11/29/16 Status: Completedalbuterol 0.083% inhalation solution 2.49 mg, 3 mL, Route: NEB, Drug form: SOLN, ONCE, Dosing Weight 135, kg, Priority: STAT, Start date:11/26/16 3:20:00 CDT, Stop date: 11/26/16 3:20:00 CDT Notes: SEE RT DOCUMENTATION (Same as: Farhan) Start Date: 11/26/16 Stop Date: 11/26/16 Status: Completedalbuterol-ipratropium 2.5-0.5 mg inhalation solution 3 mL, Route: INHALATION, Drug Form: SOLN, Dosing Weight 121.364, kg, [id number], Start date: 11/28/16 19:00:00 CDT, Duration: 30 day, Stop date: 12/28/16 15:00: 00 CDT Notes: (Same as: Duoneb) Start Date: 11/28/16 Stop Date: 12/03/16 Status: DiscontinuedAldactone 25 mg, 1 tab, Route: PO, Drug form: TAB, BID, Dosing Weight 121.364, kg, Start date: 11/26/16 17:00:00 CDT, Duration: 30 day, Stop date: 12/26/16 9:00:00 CDT Notes: (Same As: Aldactone) Start Date: 11/26/16 Stop Date: 11/30/16 Status: Discontinuedallopurinol 100 mg oral tablet 200 mg=2 tab, PO, Daily, # 90 tab, 1 Refill(s) Start Date: 11/26/16 Stop Date: 11/27/16 Status: Discontinuedatenolol 25 mg oral tablet 25 mg=1 tab, PO, Daily, # 90 tab, 0 Refill(s) Start Date: 11/26/16 Stop Date: 11/27/16 Status: Discontinuedbisacodyl 10 mg, 1 supp, Route: DC, Drug form: SUPP, Daily, Dosing Weight 135, kg, PRN as needed for constipation, Start date: 11/26/16 4:07:00 CDT, Duration: 30 day, Stop date: 12/26/16 4:06:00 CDT Notes: (Same As: Dulcolax, Bisco-Lax) Start Date: 11/26/16 Stop Date: 12/03/16 Status: Discontinuedbumetanide 2 mg oral tablet 2 mg=1 tab, PO, Daily, # 30 tab, 0 Refill(s) Start Date: 11/26/16 Stop Date: 11/27/16 Status: CompletedBumex 2 mg, 2 tab, Route: PO, Drug form: TAB, TID, Dosing Weight 121.364, kg, Start date: 11/26/16 13:00:00 CDT, Duration: 30 day, Stop date: 12/26/16 9:00:00 CDT Notes: (Same As: Bumex) Start Date: 11/26/16 Stop Date: 11/27/16 Status: DiscontinuedDextrose 50% Syringe 12.5 gm, 25 mL, Route: IVP, Drug Form: INJ, Dosing Weight 121.364, kg, PRN, PRN Blood Glucose Results, Start date: 11/26/16 22:38:00 CDT, Stop date: 12/26/16 22 :37:00 CDT Start Date: 11/26/16 Stop Date: 12/03/16 Status: DiscontinuedDextrose 50% Syringe 25 gm, 50 mL, Route: IVP, Drug Form: INJ, Dosing Weight 121.364, kg, PRN, PRN Blood Glucose Results,Start date: 11/26/16 22:38:00 CDT, Stop date: 12/26/16 22: 37:00 CDT Start Date: 11/26/16 Stop Date: 12/03/16 Status: Discontinueddocusate 100 mg, 1 cap, Route: PO, Drug form: CAP, BID, Dosing Weight 135, kg, Start date : 11/26/16 9:00:00 CDT, Duration: 30 day, Stop date: 12/25/16 17:00:00 CDT Notes: (Same as: Colace) (Do Not Crush) Start Date: 11/26/16 Stop Date: 12/03/16 Status: DiscontinuedDuoNeb inhalation solution 3 mL, Route: NEB, Drug Form: SOLN, Dosing Weight 121.364, kg, RQ4H, PRN Shortness of breath, Start date: 11/26/16 21:10:00 CDT, Stop date: 12/26/16 21: 09:00 CDT Notes: (Same as: Duoneb) Start Date: 11/26/16 Stop Date: 12/03/16 Status: DiscontinuedDuoNeb inhalation solution 3 ml, INHALATION, PRN, PRN Wheezing, # 360 ea, 0 Refill(s) Start Date: 11/27/16 Status: OrderedDuoNeb inhalation solution 3 ml, INHALATION, Q6H, # 360 ea, 0 Refill(s) Start Date: 11/27/16 Status: Orderedfurosemide 100 mg, 10 mL, Route: IVP, Drug form: INJ, TID, Dosing Weight 121.364, kg, Start date: 11/28/16 15:00:00 CDT, Duration: 1 day, Stop date: 11/29/16 10:00: 00 CDT Notes: (Same as: Lasix) MEDICATION WASTE Product Size: 100 mgProduct Wasted: ___ mg Start Date: 11/28/16 Stop Date: 11/29/16 Status: Completedfurosemide 40 mg oral tablet 40 mg, 1 tab, Route: PO, Drug form: TAB, BID, Dosing Weight 121.364, kg, Start date: 12/01/16 17:00:00 CDT, Duration: 30 day, Stop date: 12/31/16 9:00:00 CDT Notes: (Same as: Lasix) May cause GI upset. Give with food or milk. Start Date: 12/01/16 Stop Date: 12/03/16 Status: Discontinuedfurosemide 40 mg oral tablet 40 mg=1 tab, PO, BID, 0 Refill(s) Start Date: 12/03/16 Status: Orderedfurosemide 40 mg oral tablet 120 mg, 3 tab, Route: PO, Drug form: TAB, TID, Dosing Weight 121.364, kg, Start date: 11/29/16 13:00:00 CDT, Duration: 30 day, Stop date: 12/29/16 9:00:00 CDT Notes: (Same as: Lasix) May cause GI upset. Give with food or milk. Start Date: 11/29/16 Stop Date: 12/01/16 Status: DiscontinuedGI cocktail 30 ml, Route: PO, Drug Form: SUSP, Dosing Weight 121.364, kg, TID-Before Meals, PRN Other -See Comment, Routine, Start date: 11/30/16 15:12:00 CDT, Duration: 30 day, Stop date: 12/30/16 15:11:00 CDT, painful swallowing Notes: G.I. Cocktail=antacid with simethicone 22.5 mL - lidocaine viscous 7.5 mL Start Date: 11/30/16 Stop Date: 12/03/16 Status: DiscontinuedGI cocktail 30 mL, PO, TID-Before Meals, PRN Other -See Comment | painful swallowing, 0 Refill(s) Start Date: 12/03/16 Status: Orderedglucagon 1 mg, Route: IM, Drug form: PDR/INJ, PRN, Dosing Weight 121.364, kg, PRN Blood Glucose Results, Start date: 11/26/16 22:38:00 CDT, Duration: 30 day, Stop date : 12/26/16 22:37:00 CDT Start Date: 11/26/16 Stop Date: 12/03/16 Status: Discontinuedheparin 1,000 unit, 1 mL, Route: IV Lock, Drug form: INJ, PRN, Dosing Weight 121.364, kg , PRN Dialysis, Start date: 11/30/16 22:17:00 CDT, Duration: 30 day, Stop date: 12/30/16 22:16:00 CDT Start Date: 11/30/16 Stop Date: 12/03/16 Status: Discontinuedheparin 5000 units/mL injectable solution 5,000 unit, 1 mL, Route: SUB-Q, Drug form: INJ, Q8H, Dosing Weight 121.364, kg, Start date: 178:00:00 CDT, Duration: 30 day, Stop date: 12/28/16 0:00:00 CDT Notes: porcine heparin Start Date: 11/28/16 Stop Date: 12/03/16 Status: DiscontinuedhydrALAZINE 10 mg, 0.5 mL, Route: IVP, Drug form: INJ, Q6H, Dosing Weight 121.364, kg, PRN Hypertension, Start date: 12/01/16 5:39:00 CDT, Duration: 30 day, Stop date: 5:38:00 CDT Notes: (Same as: Apresoline)Push over 5 minutes Start Date: 12/01/16 Stop Date: 12/03/16 Status: DiscontinuedhydrALAZINE 10 mg, 1 tab, Route: PO, Drug form: TAB, Q6H, Dosing Weight 121.364, kg, Start date: 12/01/16 6:00:00 CDT, Duration: 30 day, Stop date: 12/31/16 0:00:00 CDT Notes: (Same as: Apresoline) May interfere w/enteral feedings.Take With Food Start Date: 12/01/16 Stop Date: 12/01/16 Status: CanceledhydrALAZINE 25 mg oral tablet 25 mg, 1 tab, Route: PO, Drug form: TAB, TID, Dosing Weight 135, kg, Priority: NOW, Start date: 11/26/16 4:10:00 CDT, Duration: 30 day, Stop date: 12/25/16 17: 00:00 CDT Notes: (Same as: Apresoline) May interfere w/enteral feedings Take With Food. Start Date: 11/26/16 Stop Date: 12/01/16 Status: Discontinuedinsulin aspart 2 unit, 0.02 mL, Route: SUB-Q, Drug form: SOLN, Bedtime, Dosing Weight 121.364, kg, PRN Blood Glucose Results, Start date: 11/26/16 22:38:00 CDT, Duration: 30 day, Stop date: 12/26/16 22:37:00 CDT Notes: Roll in palms of hands gently; Do not shake vigorously. (Same as: AutowattsLOG)"single patient use only"WASTE: F/P - Black; E - Municipal Trash Bin Stable for 28 days at room temperature.Expires in days from Date Start Date: 11/26/16 Stop Date: 12/03/16 Status: Discontinuedinsulin aspart 4 unit, 0.04 mL, Route: SUB-Q, Drug form: SOLN, Bedtime, Dosing Weight 121.364, kg, PRN Blood Glucose Results, Start date: 11/26/16 22:38:00 CDT, Duration: 30 day, Stop date: 12/26/16 22:37:00 CDT Notes: Roll in palms of hands gently; Do not shake vigorously. (Same as: NovoCorrelec)"single patient use only"WASTE: F/P - Black; E - Municipal Trash Bin Stable for 28 days at room temperature.Expires in days from Date Start Date: 11/26/16 Stop Date: 12/03/16 Status: Discontinuedinsulin aspart 1 unit, 0.01 mL, Route: SUB-Q, Drug form: SOLN, Bedtime, Dosing Weight 121.364, kg, PRN Blood Glucose Results, Start date: 11/26/16 22:38:00 CDT, Duration: 30 day, Stop date: 12/26/16 22:37:00 CDT Notes: Roll in palms of hands gently; Do not shake vigorously. (Same as: NovoLOG)"single patient use only"WASTE: F/P - Black; E - Municipal Trash Bin Stable for 28 days at room temperature.Expires in days from Date Start Date: 11/26/16 Stop Date: 12/03/16 Status: Discontinuedinsulin aspart 3 unit, 0.03 mL, Route: SUB-Q, Drug form: SOLN, Bedtime, Dosing Weight 121.364, kg, PRN Blood Glucose Results, Start date: 11/26/16 22:38:00 CDT, Duration: 30 day, Stop date: 12/26/16 22:37:00 CDT Notes: Roll in palms of hands gently; Do not shake vigorously. (Same as: AutowattsLOG)"single patient use only"WASTE: F/P - Black; E - Municipal Trash Bin Stable for 28 days at room temperature.Expires in days from Date Start Date: 11/26/16 Stop Date: 12/03/16 Status: Discontinuedinsulin aspart 1 unit, 0.01 mL, Route: SUB-Q, Drug form: SOLN, TID-Before Meals, Dosing Weight 121.364, kg, PRN Blood Glucose Results, Start date: 11/26/16 22:38:00 CDT, Duration: 30 day, Stop date: 12/26/16 22:37:00CDT Notes: Roll in palms of hands gently; Do not shake vigorously. (Same as: NovoLOG)"single patient use only"WASTE: F/P - Black; E - Municipal Trash Bin Stable for 28 days at room temperature.Expires in days from Date Start Date: 11/26/16 Stop Date: 12/03/16 Status: Discontinuedinsulin aspart 4 unit, 0.04 mL, Route: SUB-Q, Drug form: SOLN, TID-Before Meals, Dosing Weight 121.364, kg, PRN Blood Glucose Results, Start date: 11/26/16 22:38:00 CDT, Duration: 30 day, Stop date: 12/26/16 22:37:00CDT Notes: Roll in palms of hands gently; Do not shake vigorously. (Same as: AutowattsLOG)"single patient use only"WASTE: F/P - Black; E - Municipal Trash Bin Stable for 28 days at room temperature.Expires in days from Date Start Date: 11/26/16 Stop Date: 12/03/16 Status: Discontinuedinsulin aspart 3 unit, 0.03 mL, Route: SUB-Q, Drug form: SOLN, TID-Before Meals, Dosing Weight 121.364, kg, PRN Blood Glucose Results, Start date: 11/26/16 22:38:00 CDT, Duration: 30 day, Stop date: 12/26/16 22:37:00CDT Notes: Roll in palms of hands gently; Do not shake vigorously. (Same as: NovoLOG)"single patient use only"WASTE: F/P - Black; E - Municipal Trash Bin Stable for 28 days at room temperature.Expires in days from Date Start Date: 11/26/16 Stop Date: 12/03/16 Status: Discontinuedinsulin aspart 2 unit, 0.02 mL, Route: SUB-Q, Drug form: SOLN, TID-Before Meals, Dosing Weight 121.364, kg, PRN Blood Glucose Results, Start date: 11/26/16 22:38:00 CDT, Duration: 30 day, Stop date: 12/26/16 22:37:00CDT Notes: Roll in palms of hands gently; Do not shake vigorously. (Same as: NovoLOG)"single patient use only"WASTE: F/P - Black; E - Municipal Trash Bin Stable for 28 days at room temperature.Expires in days from Date Start Date: 11/26/16 Stop Date: 12/03/16 Status: Discontinuedinsulin aspart 5 unit, 0.05 mL, Route: SUB-Q, Drug form: SOLN, TID-Before Meals, Dosing Weight 121.364, kg, PRN Blood Glucose Results, Start date: 11/26/16 22:38:00 CDT, Duration: 30 day, Stop date: 12/26/16 22:37:00CDT Notes: Roll in palms of hands gently; Do not shake vigorously. (Same as: NovoLOG)"single patient use only"WASTE: F/P - Black; E - Municipal Trash Bin Stable for 28 days at room temperature.Expires in days from Date Start Date: 11/26/16 Stop Date: 12/03/16 Status: Discontinuedinsulin aspart SLIDING SCALE, SUB-Q, TID-Before Meals, 0 Refill(s) Start Date: 11/27/16 Status: Orderedisosorbide dinitrate 30 mg, 1 tab, Route: PO, Drug form: TAB, TID, Dosing Weight 121.364, kg, Start date: 12/01/16 17:00:00 CDT, Duration: 30 day, Stop date: 12/31/16 13:00:00 CDT Notes: Same as: Isordil Take on empty stomach/ full glass of water Start Date: 12/01/16 Stop Date: 12/03/16 Status: Discontinuedisosorbide dinitrate 30 mg oral tablet 30 mg=1 tab, PO, TID, # 90 tab, 0 Refill(s), other Start Date: 12/03/16 Stop Date: 01/02/17 Status: Orderedlabetalol 400 mg, 4 tab, Route: PO, Drug form: TAB, Q12H, Dosing Weight 135, kg, Priority : NOW, Start date: 11/26/16 4:09:00 CDT, Duration: 30 day, Stop date: 12/25/16 21:00:00 CDT Notes: With food. (Same as:Trandate, Normodyne) Start Date: 11/26/16 Stop Date: 12/03/16 Status: Discontinuedlabetalol 400 mg, 4 tab, Route: PO, Drug form: TAB, ONCE, Dosing Weight 121.364, kg, Priority: NOW, Start date: 11/30/16 11:51:00 CDT, Stop date: 11/30/16 11:51:00 CDT Notes: With food. (Same as:Trandate, Normodyne) Start Date: 11/30/16 Stop Date: 11/30/16 Status: CompletedLasix 20 mg, 2 mL, Route: IV, Drug form: INJ, ONCE, Dosing Weight 121.364, kg, Start date: 11/28/16 7:07:00 CDT, Stop date: 11/28/16 7:07:00 CDT Notes: (Same as: Lasix) Start Date: 11/28/16 Stop Date: 11/28/16 Status: CompletedLasix 40 mg, 4 mL, Route: IVP, Drug form: INJ, Q12H, Dosing Weight 135, kg, Priority: STAT, Start date: 11/26/16 4:06:00 CDT, Duration: 30 day, Stop date: 12/25/16 21 :00:00 CDT Notes: (Same as: Lasix) MEDICATION WASTE Product Size: 40 mgProduct Wasted: ___ mg Start Date: 11/26/16 Stop Date: 11/27/16 Status: DiscontinuedLasix 120 mg, 3 tab, Route: PO, Drug form: TAB, TID, Start date: 11/27/16 21:02:00 CDT , Duration: 30 day, Stop date: 12/27/16 17:00:00 CDT Notes: (Same as: Lasix) May cause GI upset. Give with food or milk. Start Date: 11/27/16 Stop Date: 11/28/16 Status: DiscontinuedLasix 40 mg oral tablet 120 mg, 3 tab, Route: PO, Drug form: TAB, TID, Dosing Weight 121.364, kg, Start date: 11/27/16 17:00:00 CDT, Duration: 30 day, Stop date: 12/27/16 13:00:00 CDT Notes: (Same as: Lasix) May cause GI upset. Give with food or milk. Start Date: 11/27/16 Stop Date: 11/27/16 Status: Discontinuedlevothyroxine 200 microgram, 2 tab, Route: PO, Drug form: TAB, Q630AM, Dosing Weight 135, kg, Start date: 176:30:00 CDT, Duration: 30 day, Stop date: 12/25/16 6:30:00 CDT Notes: Take 1 hour before or 2 hours after meal; Enteral feeds may interefere with the absorption ofthis medication. (Same as:Levothroid, Synthroid) Start Date: 11/26/16 Stop Date: 12/03/16 Status: Discontinuedmagnesium citrate 1.745 g/30 mL oral liquid 300 ml, Route: PO, Drug Form: LIQ, Dosing Weight 121.364, kg, ONCE, NOW, Start date: 11/29/16 2:37:00 CDT, Stop date: 11/29/16 2:37:00 CDT Notes: (Same as: Citrate of Magnesia)Concentration: 1.745 gm / 30 mL Start Date: 11/29/16 Stop Date: 11/29/16 Status: Completedmeclizine 12.5 mg, 1 tab, Route: PO, Drug form: TAB, Q8H, Dosing Weight 121.364, kg, PRN as needed for dizziness, Start date: 12/03/16 12:24:00 CDT, Duration: 30 day, Stop date: 01/02/17 12:23:00 CDT Notes: (Same as: Antivert) Start Date: 12/03/16 Stop Date: 12/03/16 Status: Discontinuedmeclizine 12.5 mg oral tablet 12.5 mg=1 tab, PO, Q8H, PRN as needed for dizziness, 0 Refill(s) Start Date: 12/03/16 Status: Orderedmetolazone 10 mg oral tablet 10 mg=1 tab, PO, Daily, # 30 tab, 0 Refill(s) Start Date: 11/27/16 Status: Orderedmetolazone 5 mg oral tablet 5 mg, 1 tab, Route: PO, Drug form: TAB, Daily, Dosing Weight 121.364, kg, Start date: 11/27/16 9:00:00 CDT, Duration: 30 day, Stop date: 12/26/16 9:00:00 CDT Notes: (Same as: Zaroxolyn) Start Date: 11/27/16 Stop Date: 11/30/16 Status: Discontinuedmorphine Sulfate 2 mg, 1 mL, Route: IVP, Drug form: INJ, Q4H, Dosing Weight 135, kg, PRN Pain Score 7-10, Start date:11/26/16 5:39:00 CDT, Duration: 30 day, Stop date: 5:38:00 CDT Notes: (Same as:MORPhine Sulfate) Start Date: 11/26/16 Stop Date: 12/03/16 Status: DiscontinuedMylanta oral suspension UNKNOWN, PO, QID, PRN Heartburn, 0 Refill(s) Start Date: 11/27/16 Status: OrderedNorco 10/325 oral tablet 1 tab, PO, Q6H, PRN for pain, # 24 tab, 0 Refill(s) Start Date: 11/27/16 Stop Date: 12/03/16 Status: Orderednystatin topical 100,000 units/g powder 1 appl, Route: TOP, Daily, Drug form: PWDR, PRN Rash, Start date: 11/27/16 11:22 :00 CDT, Duration: 30 day, Stop date: 12/27/16 11:21:00 CDT Notes: (Same as:Mycostatin, Nilstat) For external use only. Start Date: 11/27/16 Stop Date: 12/03/16 Status: Discontinuednystatin topical 100,000 units/g powder 1 appl, TOP, Daily, PRN PRN, # 30 gm, 0 Refill(s) Start Date: 11/27/16 Stop Date: 12/04/16 Status: Orderedondansetron 4 mg, 2 mL, Route: IVP, Drug form: INJ, Q6H, Dosing Weight 135, kg, PRN Nausea & amp; Vomiting, Startdate: 11/26/16 5:39:00 CDT, Duration: 30 day, Stop date: 5:38:00 CDT Notes: (Same as: Zofran) MEDICATION WASTE Product Size: 4 mgProduct Wasted: ___ mg Start Date: 11/26/16 Stop Date: 12/03/16 Status: Discontinuedpantoprazole 80 mg + sodium chloride 0.9% 100 mL INJ (for IV set) 100 mL 100 mL, Rate: 10 ml/hr, Infuse over: 10 hr, Route: IVPB, Dosing Weight 121.364 kg, Total Volume: 100, Infuse at 8 mg / hr for 72 hours for GI bleeding, Start date: 11/28/16 5:55:00 CDT, Duration: 72 hr, Stop date: 12/01/16 5:54:00 CDT Notes: do not load in pyxis Start Date: 11/28/16 Stop Date: 11/28/16 Status: DiscontinuedpredniSONE 40 mg, 2 tab, Route: PO, Drug form: TAB, Daily, Dosing Weight 121.364, kg, Start date: 11/28/16 9:00:00 CDT, Duration: 30 day, Stop date: 12/27/16 9:00:00 CDT Notes: Take with food. Start Date: 11/28/16 Stop Date: 12/03/16 Status: DiscontinuedProtonix 40 mg, 1 tab, Route: PO, Drug form: ECTAB, Daily, Dosing Weight 121.364, kg, Start date: 11/28/16 9:00:00 CDT, Duration: 30 day, Stop date: 12/27/16 9:00:00 CDT Notes: Tablet should not be chewed or crushed.(Same as: Protonix) Start Date: 11/28/16 Stop Date: 11/28/16 Status: DiscontinuedProtonix 40 mg, Route: IVP, Drug form: INJ, Before Dinner, Dosing Weight 121.364, kg, Priority: NOW, Start date: 11/30/16 15:38:00 CDT, Duration: 30 day, Stop date: 12/29/16 16:30:00 CDT Notes: For IV push reconstitute with 10 ml 0.9% sodium chloride and push over 2 minutes. (Same as: Protonix) Start Date: 11/30/16 Stop Date: 12/02/16 Status: DiscontinuedProtonix 40 mg, 1 tab, Route: PO, Drug form: ECTAB, Before Dinner, Start date: 12/02/16 16:30:00 CDT, Duration: 30 day, Stop date: 12/31/16 16:30:00 CDT Notes: Tablet should not be chewed or crushed.(Same as: Protonix) Start Date: 12/02/16 Stop Date: 12/03/16 Status: DiscontinuedProtonix 40 mg oral enteric coated tablet 40 mg=1 tab, PO, Daily, # 30 tab, 3 Refill(s) Start Date: 11/27/16 Status: OrderedPulmicort Respules 0.5 mg/2 mL inhalation suspension 0.5 mg, 2 mL, Route: NEB, Drug form: SUSP, BID, Dosing Weight 121.364, kg, Start date: 11/28/16 17:00:00 CDT, Duration: 30 day, Stop date: 12/28/16 9:00: 00 CDT Notes: (Same As: Pulmicort) Start Date: 11/28/16 Stop Date: 12/03/16 Status: DiscontinuedSodium Chloride 0.9% (Bolus) IV 500 mL, 500 ml/hr, Infuse Over: 1 hr, Route: IV, 500, Drug form: INJ, PRN, Dosing Weight 121.364 kg,Start date: 11/30/16 22:17:00 CDT, Duration: 1 doses or times, Stop date: Limited # of times, PRN Dialysis Start Date: 11/30/16 Stop Date: 11/30/16 Status: Completedsodium chloride 0.9% (Priming and Maintenance) 2,000 mL, 400 ml/hr, Infuse Over: 5 hr, Route: IV, 2,000, Drug form: INJ, PRN, Dosing Weight 121.364kg, Start date: 11/30/16 22:43:00 CDT, Duration: 24 hr, Stop date: 12/01/16 22:42:00 CDT, For Use byDialysis nurse ONLY, PRN Dialysis Start Date: 11/30/16 Stop Date: 12/01/16 Status: Completedsodium chloride 0.9% (Priming and Maintenance) 2,000 mL, 400 ml/hr, Infuse Over: 5 hr, Route: IV, 2,000, Drug form: INJ, PRN, Dosing Weight 121.364kg, Start date: 12/01/16 23:10:00 CDT, Duration: 24 hr, Stop date: 12/02/16 23:09:00 CDT, For Use byDialysis nurse ONLY, PRN Dialysis Start Date: 12/01/16 Stop Date: 12/02/16 Status: Completedsodium chloride 0.9% (Priming and Maintenance) 2,000 mL, 500 ml/hr, Infuse Over: 4 hr, Route: IV, 2,000, Drug form: INJ, PRN, Dosing Weight 121.364kg, Start date: 11/30/16 22:35:00 CDT, Duration: 24 hr, Stop date: 12/01/16 22:34:00 CDT, For Use byDialysis nurse ONLY, PRN Dialysis Start Date: 11/30/16 Stop Date: 12/01/16 Status: Completedsodium chloride 0.9% INJ 250 mL 250 mL, Rate: Titrate, Dosing Weight 121.364, kg, Route: IV, Total Volume: 250, Start Date: 171:12:00 CDT, Duration: 30 day, Stop date: 01/01/17 1:11:00 CDT, Replace Every: 24 hr Start Date: 12/02/16 Stop Date: 12/03/16 Status: Discontinuedsodium chloride 1 gm oral tablet 2 gm, 2 tab, Route: PO, Drug form: TAB, Daily, Dosing Weight 121.364, kg, Start date: 11/29/16 16:00:00 CDT, Stop date: 12/01/16 8:59:00 CDT Start Date: 11/29/16 Stop Date: 12/01/16 Status: Pending CompleteSodium Chloride 3% inhalation solution 3 mL, Route: NEB, Drug Form: MISC, Dosing Weight 121.364, kg, [id number], Start date: 11/28/16 19:00:00CDT, Duration: 30 day, Stop date: 12/28/16 15:00:00 CDT Start Date: 11/28/16 Stop Date: 12/03/16 Status: DiscontinuedTessalon Perles 200 mg, 2 cap, Route: PO, Drug form: CAP, TID, Dosing Weight 121.364, kg, Priority: NOW, Start date:11/28/16 9:18:00 CDT, Duration: 30 day, Stop date: 6:00:00 CDT Notes: (Same As: Tessalon Perles)"Do Not Crush" Start Date: 11/28/16 Stop Date: 12/03/16 Status: Discontinuedtramadol 50 mg oral tablet 50 mg, 1 tab, Route: PO, Drug form: TAB, Q6H, Dosing Weight 121.364, kg, PRN Pain Score 4-6, Start date: 11/27/16 11:23:00 CDT, Duration: 30 day, Stop date: 12/27/16 11:22:00 CDT Notes: Not to exceed 400mg/day. (Same As: Ultram) Start Date: 11/27/16 Stop Date: 12/03/16 Status: Discontinuedtrazodone 50 mg oral tablet 50 mg, 1 tab, Route: PO, Drug form: TAB, Bedtime, Dosing Weight 135, kg, PRN Insomnia, Start date: 11/26/16 4:09:00 CDT, Duration: 30 day, Stop date: 4:08:00 CDT Notes: (Same As: Vasquezyrel) Start Date: 11/26/16 Stop Date: 12/03/16 Status: Discontinuedtrazodone 50 mg oral tablet 50 mg, 1 tab, Route: PO, Drug form: TAB, ONCE, Dosing Weight 121.364, kg, Start date: 11/26/16 6:38:00 CDT, Stop date: 11/26/16 6:38:00 CDT Notes: (Same As: Lexie) Start Date: 11/26/16 Stop Date: 11/26/16 Status: Completedzolpidem 5 mg, 1 tab, Route: PO, Drug form: TAB, Bedtime, Dosing Weight 121.364, kg, PRN Sleep, Start date: 11/27/16 11:23:00 CDT, Duration: 30 day, Stop date: 12/27/16 11:22:00 CDT Notes: (Same As: Ryan) Start Date: 11/27/16 Stop Date: 12/03/16 Status: Discontinued Results BLOOD BANK RESULTS Most recent to oldest [Reference Range]: 1 2 3 ABO/Rh A POS A POS 1 *Unknown* *Unknown* (12/01/16 9:27 PM) (11/28/16 6:30 AM) Antibody Scrn Positive 2 Positive 3 (12/01/16 9:27 PM) (11/28/16 6:30 AM) AB Sendout Int Anti-K *Unknown* (11/28/16 7:34 AM) RBC product Product available 4 Product available (12/01/16 9:27 PM) (11/28/16 6:00 AM) 1Result Comment: 11/28/2016 10:16 [id number] Mixed field reactivity in ABO and Rh typing is consistent with recent transfusion of O negative RBC on 11/18/2016. Anti- Valeri identified. 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 [id number] Comment: 2016 22:49 [id number] "Significant Findings of positive Antibody Screen called to Clarisse Winn RN at 22:48 by RB. Read Back OK"3Result Comment: 11/28/2016 07:26 [id number] "Significant Findings called to Jeremie LUND at 11/28/2016 07:26 by MANE. Read Back OK."4Result Comment: 12/01/2016 23:02 [id number] Called to Pa LUND at 12/01/2016 23:02 by RB.ELECTROLYTES Most recent to oldest 1 2 3 [Reference Range]: Sodium Lvl [135-145 mEq/L] 138 mEq/L 138 mEq/L 136 mEq/L (12/03/16 5:33 AM) (12/02/16 9:09 AM) (12/01/16 5:48 AM) Potassium Lvl [3.5-5.1 3.6 mEq/L 3.4 mEq/L 4.1 mEq/L mEq/L] (12/03/16 5:33 AM) *LOW* (12/01/16 5:48 AM) (12/02/16 9:09 AM) Chloride Lvl [95-109 mEq/L] 99 mEq/L 100 mEq/L 96 mEq/L (12/03/16 5:33 AM) (12/02/16 9:09 AM) (12/01/16 5:48 AM) CO2 [24-32 mEq/L] 32 mEq/L 33 mEq/L 32 mEq/L (12/03/16 5:33 AM) *HI* (12/01/16 5:48 AM) (12/02/16 9:09 AM) AGAP [10.0-20.0 mEq/L] 10.6 mEq/L 8.4 mEq/L 12.1 mEq/L (12/03/16 5:33 AM) *LOW* (12/01/16 5:48 AM) (12/02/16 9:09 AM) CHEM PANEL Most recent to oldest 1 2 3 [Reference Range]: Creatinine Lvl [0.50-1.40 1.83 mg/dL 1.34 mg/dL 2.29 mg/dL mg/dL] *HI* (12/02/16 9:09 AM) *HI* (12/03/16 5:33 AM) (12/01/16 5:48 AM) eGFR 31 mL/min/1.73m2 1 45 mL/min/1.73m2 2 24 mL/min/1.73m2 3 *NA* *NA* *NA* (12/03/16 5:33 AM) (12/02/16 9:09 AM) (12/01/16 5:48 AM) BUN [7-22 mg/dL] 36 mg/dL 22 mg/dL 47 mg/dL *HI* (12/02/16 9:09 AM) *HI* (12/03/16 5:33 AM) (12/01/16 5:48 AM) B/C Ratio [6-25] 20 (11/26/16 2:19 AM) Glucose Lvl [70-99 mg/dL] 108 mg/dL 73 mg/dL 125 mg/dL *HI* (12/02/16 9:09 AM) *HI* (12/03/16 5:33 AM) (12/01/16 5:48 AM) Total Protein [6.4-8.4 g/dL] 5.2 g/dL *LOW* (11/26/16 2:19 AM) Albumin Lvl [3.5-5.0 g/dL] 2.5 g/dL *LOW* (11/26/16 2:19 AM) Globulin [2.7-4.2 g/dL] 2.7 g/dL (11/26/16 2:19 AM) A/G Ratio [0.7-1.6] 0.9 (11/26/16 2:19 AM) Calcium Lvl [8.5-10.5 mg/dL] 7.7 mg/dL 7.4 mg/dL 7.7 mg/dL *LOW* *LOW* *LOW* (12/03/16 5:33 AM) (12/02/16 9:09 AM) (12/01/16 5:48 AM) ALT [0-65 unit/L] 27 unit/L (11/26/16 2:19 AM) AST [0-37 unit/L] 10 unit/L (11/26/16 2:19 AM) Alk Phos [39-136 unit/L] 54 unit/L (11/26/16 2:19 AM) Bili Total [0.2-1.3 mg/dL] 0.7 mg/dL (11/26/16 2:19 AM) 1Result Comment: The eGFR is calculated using [...] eGFR should be multiplied by the estimated BMI.ANEMIA STUDY Most recent to oldest [Reference Range]: 1 2 3 Iron [30-160 ug/dl] 38 ug/dl 35 ug/dl (11/30/16 5:49 AM) (11/29/16 5:09 AM) % Satur Fe [12-57 %] 22 % 27 % (5/22/17 5:49 AM) (11/29/16 5:09 AM) UIBC [110-370 ug/dl] 131 ug/dl 94 ug/dl (11/30/16 5:49 AM) *LOW* (11/29/16 5:09 AM) TIBC [228-428 ug/dl] 169 ug/dl 129 ug/dl *LOW* *LOW* (11/30/16 5:49 AM) (11/29/16 5:09 AM) URINE AND STOOL Most recent to oldest [Reference Range]: 1 2 3 UA Turbidity [Clear] Clear (11/26/16 2:19 AM) UA Color [Yellow] Light Yellow *NA* (11/26/16 2:19 AM) UA pH [5.0-8.0] 5.0 (11/26/16 2:19 AM) UA Spec Grav [<=1.030] 1.009 (11/26/16 2:19 AM) UA Glucose [Negative mg/dL] 50 mg/dL *ABN* (11/26/16 2:19 AM) UA Blood [Negative] Small *ABN* (11/26/16 2:19 AM) UA Ketones [Negative mg/dL] Negative mg/dL *NA* (11/26/16 2:19 AM) UA Protein [Negative mg/dL] >=300 mg/dL *ABN* (11/26/16 2:19 AM) UA Urobilinogen [0.1-1.0 mg/dL] <=1.0 mg/dL *NA* (11/26/16 2:19 AM) UA Bili [Negative] Negative *NA* (11/26/16 2:19 AM) UA Leuk Est [Negative] Negative (11/26/16 2:19 AM) UA Nitrite [Negative] Negative (11/26/16 2:19 AM) UA WBC [0-5 /HPF] 2 /HPF (11/26/16 2:19 AM) UA RBC [0-2 /HPF] 10 /HPF *HI* (11/26/16 2:19 AM) UA Bacteria [None Seen /HPF] Occasional /HPF *NA* (11/26/16 2:19 AM) UA Sq Epi [Few /LPF] Occasional /LPF *NA* (11/26/16 2:19 AM) UA Hyal Cast [0-2 /LPF] 1 /LPF (11/26/16 2:19 AM) UA Mucus [None Seen /LPF] Few /LPF *NA* (11/26/16 2:19 AM) IMMUNOLOGY Most recent to oldest [Reference Range]: 1 2 3 Hep Bs Ag [Negative] Negative *NA* (11/30/16 2:56 PM) Hep Bs Ab [<=7.4 mIU/mL] 3.8 mIU/mL (11/30/16 2:56 PM) Hep B Core Ab [Negative] Negative *NA* (11/30/16 2:56 PM) Hep C Ab Negative *NA* (12/01/16 5:48 AM) HEMATOLOGY Most recent to oldest 1 2 3 [Reference Range]: WBC [3.7-10.4 K/CMM] 10.6 K/CMM 11.4 K/CMM 12.2 K/CMM *HI* *HI* *HI* (12/03/16 5:33 AM) (12/01/16 5:48 AM) (11/30/16 5:49 AM) RBC [4.20-5.40 M/CMM] 2.84 M/CMM 2.58 M/CMM 2.62 M/CMM *LOW* *LOW* *LOW* (12/03/16 5:33 AM) (12/01/16 5:48 AM) (11/30/16 5:49 AM) Hgb [12.0-16.0 g/dL] 8.2 g/dL 7.2 g/dL 7.6 g/dL *LOW* *LOW* *LOW* (12/03/16 5:33 AM) (12/01/16 5:48 AM) (11/30/16 5:49 AM) Hct [36.0-48.0 %] 25.5 % 23.0 % 23.2 % *LOW* *LOW* *LOW* (12/03/16 5:33 AM) (12/01/16 5:48 AM) (11/30/16 5:49 AM) MCV [80.0-98.0 fL] 89.8 fL 89.1 fL 88.3 fL (12/03/16 5:33 AM) (12/01/16 5:48 AM) (11/30/16 5:49 AM) MCH [27.0-31.0 pg] 28.9 pg 28.0 pg 29.1 pg (12/03/16 5:33 AM) (12/01/16 5:48 AM) (11/30/16 5:49 AM) MCHC [32.0-36.0 g/dL] 32.1 g/dL 31.5 g/dL 33.0 g/dL (12/03/16 5:33 AM) *LOW* (11/30/16 5:49 AM) (12/01/16 5:48 AM) RDW [11.5-14.5 %] 15.5 % 15.4 % 15.7 % *HI* *HI* *HI* (12/03/16 5:33 AM) (12/01/16 5:48 AM) (11/30/16 5:49 AM) Platelet [133-450 K/CMM] 125 K/CMM 119 K/CMM 101 K/CMM *LOW* *LOW* *LOW* (12/03/16 5:33 AM) (12/01/16 5:48 AM) (11/30/16 5:49 AM) MPV [7.4-10.4 fL] 8.1 fL 8.1 fL 8.6 fL (12/03/16 5:33 AM) (12/01/16 5:48 AM) (11/30/16 5:49 AM) Segs [45.0-75.0 %] 91.9 % 94.8 % 96.8 % *HI* *HI* *HI* (12/03/16 5:33 AM) (12/01/16 5:48 AM) (11/30/16 5:49 AM) Lymphocytes [20.0-40.0 %] 1.7 % 1.0 % 1.2 % *LOW* *LOW* *LOW* (12/03/16 5:33 AM) (12/01/16 5:48 AM) (11/30/16 5:49 AM) Monocytes [2.0-12.0 %] 6.3 % 4.1 % 1.7 % (12/03/16 5:33 AM) (12/01/16 5:48 AM) *LOW* (11/30/16 5:49 AM) Eosinophils [0.0-4.0 %] 0.1 % 0.1 % 0.0 % (12/03/16 5:33 AM) (12/01/16 5:48 AM) (11/30/16 5:49 AM) Basophils [0.0-1.0 %] 0.0 % 0.0 % 0.3 % (12/03/16 5:33 AM) (12/01/16 5:48 AM) (11/30/16 5:49 AM) Segs-Bands # [1.5-8.1 K/CMM] 9.8 K/CMM 10.8 K/CMM 11.8 K/CMM *HI* *HI* *HI* (12/03/16 5:33 AM) (12/01/16 5:48 AM) (11/30/16 5:49 AM) Lymphocytes # [1.0-5.5 0.2 K/CMM 0.1 K/CMM 0.2 K/CMM K/CMM] *LOW* *LOW* *LOW* (12/03/16 5:33 AM) (12/01/16 5:48 AM) (11/30/16 5:49 AM) Monocytes # [0.0-0.8 K/CMM] 0.7 K/CMM 0.5 K/CMM 0.2 K/CMM (12/03/16 5:33 AM) (12/01/16 5:48 AM) (11/30/16 5:49 AM) Eosinophils # [0.0-0.5 0.0 K/CMM 0.0 K/CMM 0.0 K/CMM K/CMM] (12/03/16 5:33 AM) (12/01/16 5:48 AM) (11/30/16 5:49 AM) Basophils # [0.0-0.2 K/CMM] 0.0 K/CMM 0.0 K/CMM 0.0 K/CMM (12/03/16 5:33 AM) (12/01/16 5:48 AM) (11/30/16 5:49 AM) Hypochrom [None Seen] 1+ 1+ (11/30/16 5:49 AM) (11/28/16 5:08 AM) Macrocyte [None Seen] 1+ *ABN* (11/30/16 5:49 AM) Plt Morph Normal Normal (11/30/16 5:49 AM) (11/28/16 5:08 AM) Retic Auto [0.5-1.5 %] 0.3 % *LOW* (11/29/16 5:09 AM) PT [12.0-14.7 seconds] 13.8 seconds (11/30/16 5:49 AM) INR [0.85-1.17] 1.04 (11/30/16 5:49 AM) PTT [22.9-35.8 seconds] 28.4 seconds (11/30/16 5:49 AM) Immunizations Given and Recorded Vaccine Date Status Refusal Reason pneumococcal 23-valent vaccine 11/20/16 Given Procedures Procedure Date Related Diagnosis Body Site Appendectomy Hysterectomy Tonsillectomy Social History Social History Type Response Substance Abuse Use: None. Alcohol Never Smoking Status Never smoker; Exposure to Tobacco Smoke None; Cigarette Smoking Last 365 Days No; Reg Smoking Cessation Counseling No Assessment and Plan No data available for this section
--- OUTSIDE RECORDS SUMMARY | 2018-11-11 20:18 | XMS REPORT | Summary of Care ---
:1965 Author Organization [facility] Address [address] [place] [id number]- Encounter HQ Alntr_kelvin(FIN) [id number] Date(s): 03/10/18 - 03/10/18 [facility] [address] [place] [phone] Discharge Disposition: Home or Self Care Attending Physician: Poretr Adams MD Vital Signs No data available [...] heart beat metFORMIN Muscle pain Active Medications Renvela 800 mg oral tablet See Instructions, 3 tabs PO with meals and 2 tabs with snacks, # 390 tab, 5 Refill(s), called to pharmacy Start Date: 03/17/18 Status: Ordered Results No data available for this section Immunizations Given and Recorded Vaccine Date Status Refusal Reason pneumococcal 23-valent vaccine 11/20/16 Given Procedures Procedure Date Related Diagnosis Body Site Status Appendectomy Completed Hysterectomy Completed Tonsillectomy Completed Social History Social History Type Response Substance Abuse Use: None. Alcohol Never Smoking Status Cigarette Smoking Last 365 Days No; Reg Smoking Cessation Counseling No; Never smoker; Exposure to Tobacco Smoke None entered on: 05/06/18 Assessment and Plan No data available for this section
--- OUTSIDE RECORDS SUMMARY | 2018-11-11 20:18 | XMS REPORT ---
:1965 Author Organization [facility] Address [address] [place] [address] Care Team Providers Name Role Phone Unavailable Unavailable Unavailable Problems This patient has no known problems. Allergies, Adverse Reactions, Alerts This patient has no known allergies or adverse reactions. Medications This patient has no known medications. Encounters Start End Encounter Admission Attending Care Care Encounter Date/Time Date/Time Type Type Clinicians Facility Department ID 2018-11-04 2018-11-04 Outpatient [facility] [id number] 13:28:00 13:28:00
[2018-11-11 21:29] LABS: Absolute Lymphocytes (CBC) 0.8 K/uL (0.7-4.9); Absolute Monocytes 0.7 K/uL (0.1-1.3); Absolute Neutrophil 7.1 K/uL (1.8-8.0); Basophils % 0.4 % (0-1.3); Eosinophils % 2.3 % (0-4.4); Hematocrit 28.9 % (36.0-45.0); Lymphocytes % 9.4 % (15.3-44.8); Monocytes % 7.9 % (3.3-12.3)
--- NOTE | 2018-11-11 21:41 | EDPHYS ---
Physician Documentation [facility] Name: Armida Palencia Age: 53 yrs Sex: Female : 1965 Arrival Date: 11/11/2018 Time: 20:09 Bed 18 Private MD: ED Physician Marquis Sutton HPI: 11/11 20:47 This 53 yrs old Female presents to ER via Wheelchair with complaints of Low jmm Hemoglobin. 20:47 This is a 53 year old female with a history of fm, htn, ESRD that presents to the ED jm and was notified of low blood count from outpatient lab draw. Patient denies bleeding, denies dark stools. Denies shortness of breath. Patient states she has felt cold over the past 2 days. . Onset: The symptoms/episode began/occurred gradually, 2 day(s) ago. The patient has experienced similar episodes in the past. 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 - Social history:: Smoking status: Patient/guardian denies using tobacco. - Ebola Screening: : Patient negative for fever greater than or equal to 101.5 degrees Fahrenheit, and additional compatible Ebola Virus Disease symptoms Patient denies exposure to infectious person Patient denies travel to an Ebola-affected area in the 21 days before illness onset No symptoms or risks identified at this time. ROS: 20:47 Constitutional: Negative for fever, chills, and weight loss, Cardiovascular: Negative [facility] for chest pain, palpitations, and edema, Respiratory: Negative for shortness of breath, cough, wheezing, and pleuritic chest pain, Abdomen/GI: Negative for abdominal pain, nausea, vomiting, diarrhea, and constipation. 20:47 All other systems are negative. Exam: 20:47 Constitutional: This is a well developed, well nourished patient who is awake, alert, jmm and in no acute distress. Head/Face: atraumatic. Eyes: EOMI, no conjunctival erythema appreciated ENT: Moist Mucus Membranes Neck: Trachea midline, Supple Chest/axilla: Normal chest wall appearance and motion. Cardiovascular: Regular rate and rhythm. No edema appreciated Respiratory: Normal respirations, no respiratory distress appreciated Abdomen/GI: Non distended, soft Back: Normal ROM Skin: General appearance color normal MS/ Extremity: Moves all extremities, no obvious deformities appreciated, no edema noted to the lower extremities Neuro: Awake and alert, normal gait Psych: Behavior is normal, Mood is normal, Patient is cooperative and pleasant Vital Signs: 20:15 BP 159 / 84; Pulse 110; Resp 18; Temp 97.2(TE); Pulse Ox 99% on R/A; Weight 124.3 kg; ed1 Height 5 ft. 3 in. (160.02 cm); Pain 0/10; 21:30 BP 167 / 78; Pulse 102; Resp 18 S; Pulse Ox 99% on R/A; cc3 20:15 Body Mass Index 48.54 (124.30 kg, 160.02 cm) ed1 MDM: 20:30 Patient medically screened. [facility] 20:47 Data reviewed: vital signs, nurses notes. [facility] 21:39 Data reviewed: lab test result(s). Counseling: I had a detailed discussion with the [facility] patient and/or guardian regarding: the historical points, exam findings, and any diagnostic results supporting the discharge/admit diagnosis, lab results, the need for outpatient follow up, to return to the emergency department if symptoms worsen or persist or if there are any questions or concerns that arise at home. ED course: H/H is WNL. Patient advised to follow up with pcp. Patient otherwise given strict return precautions. Patient understood and agrees with the plan of care. . 11/11 20:43 Order name: CBC with Diff; Complete Time: 21:37 [facility] 11/11 20:43 Order name: CMP [facility] 11/11 20:43 Order name: Type And Screen [facility] Administered Medications: No medications were administered Disposition: 11/11/18 21:40 Discharged to Home. Impression: Person with feared health complaint in whom no diagnosis is made. - Condition is Stable. - Discharge Instructions: Anemia, Nonspecific. - Medication Reconciliation Form, Thank You Letter, Antibiotic Education, Prescription Opioid Use form. - Follow up: Private Physician; When: Tomorrow; Reason: Recheck today's complaints, Continuance of care, Re-evaluation by your physician. Addendum: 11/14/2018 06:39 Co-signature as Attending Physician, Marquis Sutton MD I agree with the assessment and c walker plan of care. Signatures: Dispatcher [employer] EDMD Marquis Sutton MD MD cha Mickail, Joel, PA PA Elissa Durand, RN RN ed1 Lucy Barrios cc3 Corrections: (The following items were deleted from the chart) 11/11 21:53 20:43 IV Saline Lock ordered. jolie cc3 21:53 21:40 11/11/2018 21:40 Discharged to Home. Impression: Person with feared health cc3 complaint in whom no diagnosis is made. Condition is Stable. Forms are Medication Reconciliation Form, Thank You Letter, Antibiotic Education, Prescription Opioid Use. Follow up: Private Physician; When: Tomorrow; Reason: Recheck today's complaints, Continuance of care, Re-evaluation by your physician. [facility]
--- NOTE | 2018-11-11 21:41 | ER ---
Nurse's Notes [facility] Name: Armida Palencia Age: 53 yrs Sex: Female : 1965 Arrival Date: 11/11/2018 Time: 20:09 Bed 18 Private MD: Diagnosis: Person with feared health complaint in whom no diagnosis is made Presentation: 11/11 20:10 Presenting complaint: states: She does dialysis TTS and they called and said ed1 her hemoglobin was low and she needs it checked and a transfusion if needed. Transition of care: patient was not received from another setting of care. Onset of symptoms was November 11, 2018. Risk Assessment: Do you want to hurt yourself or someone else? Patient reports no desire to harm self or others. Initial Sepsis Screen: Does the patient meet any 2 criteria? No. Patient's initial sepsis screen is negative. Does the patient have a suspected source of infection? No. Patient's initial sepsis screen is negative. Care prior to arrival: None. 20:10 Method Of Arrival: Wheelchair ed1 20:10 Acuity: MAYRA 3 ed1 Triage Assessment: 20:15 General: Appears in no apparent distress. Behavior is calm, cooperative. Pain: Denies ed1 pain. 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 - Social history:: Smoking status: Patient/guardian denies using tobacco. - Ebola Screening: : Patient negative for fever greater than or equal to 101.5 degrees Fahrenheit, and additional compatible Ebola Virus Disease symptoms Patient denies exposure to infectious person Patient denies travel to an Ebola-affected area in the 21 days before illness onset No symptoms or risks identified at this time. Screenin:32 Abuse screen: Denies threats or abuse. Denies injuries from another. Nutritional cc3 screening: No deficits noted. Tuberculosis screening: No symptoms or risk factors identified. Fall Risk Ambulatory Aid- None/Bed Rest/Nurse Assist (0 pts). Gait- Normal/Bed Rest/Wheelchair (0 pts) Mental Status- Oriented to own ability (0 pts). Assessment: 20:32 General: Appears in no apparent distress. comfortable, Behavior is calm, cooperative, cc3 appropriate for age. Pain: Denies pain. Neuro: Level of Consciousness is awake, alert, obeys commands, Oriented to person, place, time, situation, Appropriate for age. Cardiovascular: Denies chest pain, Patient's skin is warm and dry. Respiratory: Airway is patent Respiratory effort is even, unlabored, Respiratory pattern is regular, symmetrical. GI: Abdomen is round obese. : No signs and/or symptoms were reported regarding the genitourinary system. EENT: No signs and/or symptoms were reported regarding the EENT system. Derm: No signs and/or symptoms reported regarding the dermatologic system. Musculoskeletal: Circulation, motion, and sensation intact. Range of motion: intact in all extremities. 21:25 Reassessment: Patient appears in no apparent distress at this time. Patient and/or cc3 family updated on plan of care and expected duration. Pain level reassessed. Patient is alert, oriented x 3, equal unlabored respirations, skin warm/dry/pink. Laboratory staff came to do the phlebotomy as patient requested to have an IV cannula if needs be after the laboratory result. 21:50 Reassessment: Patient appears in no apparent distress at this time. Patient and/or cc3 family updated on plan of care and expected duration. Pain level reassessed. Patient is alert, oriented x 3, equal unlabored respirations, skin warm/dry/pink. Hgb result of 9.8, SREE Rivera discharged home the patient, no prescription given. No IV cannula in situ and patient left ER vitally stable by wheelchair escorted by me and her relatives. Patient denies pain at this time. Patient states feeling better. Vital Signs: 20:15 BP 159 / 84; Pulse 110; Resp 18; Temp 97.2(TE); Pulse Ox 99% on R/A; Weight 124.3 kg; ed1 Height 5 ft. 3 in. (160.02 cm); Pain 0/10; 21:30 BP 167 / 78; Pulse 102; Resp 18 S; Pulse Ox 99% on R/A; cc3 20:15 Body Mass Index 48.54 (124.30 kg, 160.02 cm) ed1 ED Course: 20:09 Patient arrived in ED. ed1 20:11 Triage completed. ed1 20:15 Arm band placed on right wrist. ed1 20:28 Romeo Rivera PA is PHCP. [facility] 20:28 Marquis Sutton MD is Attending Physician. [facility] 20:32 Lucy Barrios is Primary Nurse. cc3 20:32 Patient has correct armband on for positive identification. Placed in gown. Bed in low cc3 position. Call light in reach. Side rails up X 1. front desk monitor on. Pulse ox on. NIBP on. 21:50 No provider procedures requiring assistance completed. Patient did not have IV access cc3 during this emergency room visit. Administered Medications: No medications were administered Outcome: 21:40 Discharge ordered by MD. [facility] 21:50 Discharged to home via wheelchair, with family. cc3 21:50 Condition: stable 21:50 Discharge instructions given to patient, family, Instructed on discharge instructions, follow up and referral plans. Demonstrated understanding of instructions, follow-up care. 21:53 Patient left the ED. cc3 Signatures: Romeo Rivera PA PA jmm Riggs, Erika, RN RN ed1 Lucy Barrios cc3
[2018-11-11 21:50] LABS: Albumin 3.7 g/dL (3.4-5.0); Bilirubin Total 0.7 mg/dL (0.2-1.0); Potassium 5.3 mmol/L (3.5-5.1); Protein, Total 7.8 g/dL (6.4-8.2)
== END 2018-11-11 21:53 | disposition home or self-care (01) ==
LOC: ER 20:02
DX: Z71.1 Person with feared health complaint in whom no diagnosis is made (principal); E11.9 Type 2 diabetes mellitus without complications; I10 Essential (primary) hypertension; Z88.8 Allergy status to other drugs, medicaments and biological substances; Z79.4 Long term (current) use of insulin
CPT/HCPCS: 36415; 80053; 85025; 86850; 86870; 86900; 86901; 99284